=== PATIENT | female | born 1945 | race Caucasian/White ===

== ENCOUNTER 2016-09-23 01:21 | Inpatient (IN) | payer OTHER ==
[2016-09-23] VITALS (31 sets, daily range): BP systolic 80–149; BP diastolic 44–83; PULSE 74–118; RESP 6–38; TEMP 96.5–100.1; O2SAT 80–100
[~2016-09-23] VITALS: Ht 162.6 cm; Wt 73.9 kg
--- NOTE | 2016-09-23 01:21 | NUR ---
ER Dr. Castrejon at bedside examining patient.
--- NOTE | 2016-09-23 01:21 | NUR ---
Placed in room 1 . Placed on quoter, blood pressure machine and pulse oximeter. To gown for exam. Side rails up. Report given to Mery LEDEZMA.
--- NOTE | 2016-09-23 01:25 | NUR ---
Pt brought in by ALS. Per report, pt collapsed after dinner and c/o SOB. pt has hx COPD and CHF. 4 doses of nitro and breathing tx given during transport. Pt unarousable, cool, and diaphoretic with accessory muscle use. Pt O2 sat 74% upon arrival.
--- NOTE | 2016-09-23 01:32 | NUR ---
Patient not known to be of DNR status. Patient medicated with 20 mg of etomidate for sedation prior to placement of ET tube. Respiratory therapy at bedside prior to placement. Size 4 ET tube placed by Dr Castrejon. Cuff inflated with 10 cc air. Auscultation of breath sounds over bilateral chest wall. ET tube secured with tape. O2 sats 93% pulse ox. PCXR ordered to check tube placement.
[2016-09-23] MEDS ORDERED: NACL 0.9% 1,000 ML IV ONE (01:36)
[2016-09-23] MEDS ORDERED: LORazepam 2 MG/ML VIAL (FOR ER USE) ONE (01:44)
[2016-09-23] MEDS ORDERED: ONDANSETRON HCL 4 MG/2 ML VIAL IVP ONE (01:45)
[2016-09-23] MEDS ORDERED: LORazepam 2 MG/ML VIAL (FOR ER USE) IVP ONE (01:45)
[2016-09-23] MEDS ORDERED: ETOMIDATE 20 MG/ 10 ML VIAL (AMIDATE) IVP ONE ×2 (01:45→09:57)
[2016-09-23] MEDS ORDERED: IPRATROPIUM/ALBUTEROL SULFATE 3 ML AMPUL.NEB INH ONE (01:45)
--- NOTE | 2016-09-23 02:00 | NUR ---
Pt's daughter at bedside and updated on pt condition. All questions answered and concerns met.
[2016-09-23 02:01] LABS: CALCIUM 9.5 mg/dL (8.4-11.0); CREATININE 1.76 mg/dL (0.55-1.30); POTASSIUM 3.3 mmol/L (3.5-5.1)
[2016-09-23 02:03] LABS: HEMATOCRIT 44.7 % (36-48); HEMOGLOBIN 14.4 g/dL (12.0-16.0); MEAN CORPUSCULAR HEMOGLOBIN 30 pg (27-31); MEAN CORPUSCULAR HGB CONC 32 % (32-36); MEAN CORPUSCULAR VOLUME 92 fL (79.0-98.0); PLATELET COUNT (AUTO) 264 K/uL (130-430); RED BLOOD CELL COUNT(AUTO) 4.83 MIL/uL (4.2-6.2); RED CELL DISTRIBUTION WIDTH 13.9 % (9.0-15.0); WHITE BLOOD COUNT (AUTO) 15.4 K/uL (4.8-10.8)
[2016-09-23 02:13] LABS: BILIRUBIN,URINE NEGATIVE (NEGATIVE); BLOOD, URINE NEGATIVE (NEGATIVE); COLOR,URINE YELLOW (YELLOW); GLUCOSE,URINE NEGATIVE (NEGATIVE); KETONES,URINE TRACE (NEGATIVE); LEUKOCYTE ESTERASE ,URINE NEGATIVE (NEGATIVE); NITRITE, URINE NEGATIVE (NEGATIVE); PH,URINE 5.5 (5.0-8.0); PROTEIN URINE 2+ (NEGATIVE); UROBILINOGEN,URINE 0.2 (0.2-1.0)
[2016-09-23 02:19] LABS: BASOPHILS % (MANUAL) 0 % (0-2); EOSINOPHILS % (MANUAL) 2 % (0-7); LYMPHOCYTES % (MANUAL) 45 % (20-46); MONOCYTES % (MANUAL) 4 % (0-11)
[2016-09-23 02:20] LABS: CLARITY/URINE HAZY (CLEAR)
[2016-09-23 02:22] LABS: TOTAL BILIRUBIN 0.3 mg/dL (0.0-1.0); TOTAL PROTEIN, SERUM 6.4 g/dL (6.4-8.3)
[2016-09-23 02:27] LABS: BARBITURATE, URINE NEGATIVE (NEG <=200); BENZODIAZEPINE, URINE POSITIVE (NEG <=150); CANNABINOID, URINE NEGATIVE (NEG <=50); COCAINE, URINE NEGATIVE (NEG <=150); METHAMPHETAMINES SCREEN,URINE NEGATIVE (NEG <=500); OPIATE, URINE NEGATIVE (NEG <=100); PHENCYCLIDINE SCREEN,URINE NEGATIVE (NEG <=25); UR TRICYCLIC ANTIDEPRESSANTS NEGATIVE (NEG <=300); URINE AMPHETAMINE NEGATIVE (NEG <=500); URINE METHADONE NEGATIVE (NEG <=200); URINE OXYCODONE SCREEN NEGATIVE (NEG <=100); URINE PROPOXYPHENE SCREEN NEGATIVE (NEG <=300)
[2016-09-23 02:29] LABS: BACTERIA,URINE FEW /HPF (None Seen); FINE GRANULAR CASTS,URINE 0-10 /LPF (None Seen); HYALINE CASTS, URINE 0-10 /LPF (None Seen); MUCUS,URINE None Seen /LPF (None Seen)
[2016-09-23 02:30] LABS: YEAST,URINE Rare /HPF (None Seen)
[2016-09-23] MEDS ORDERED: FUROSEMIDE 40 MG/4 ML VIAL IVP ONE (02:30)
[2016-09-23] MEDS ORDERED: ASPIRIN 81 MG TAB.CHEW PO ONE (02:30)
[2016-09-23 02:55] LABS: BLOOD GAS BASE EXCESS -5.3 mmol/L (-3.0-3.0); BLOOD GAS PH 7.289 (7.350-7.450)
[2016-09-23 02:56] LABS: ABG TOTAL HEMOGLOBIN 14.4 G/dL (12.0-18.0); BLOOD GAS COHb% 0.3 % (0.5-1.5); BLOOD GAS HHB 8.6 % (0.0-6.0); BLOOD O2Hb% 90.5 % (94.0-97.0)
[2016-09-23] MEDS ORDERED: MORPHINE 2 MG/ML INJ. SYRINGE IVP PRN (03:45)
[2016-09-23] MEDS ORDERED: IPRATROPIUM/ALBUTEROL SULFATE 3 ML AMPUL.NEB INH PRN (03:45)
--- NOTE | 2016-09-23 04:05 | NUR ---
ADMISSION PT ADMITTED FROM ER VIA GURNEY. PT ON VENT AC 16 TV 500 FIO2 100 AND PEEP 5. O2 SAT 100%. SINUS RHYTHM ON REHABILITATION SUPERVISOR. PT CALM, COOPERATIVE, LETHARGIC. BREATHING EVEN AND UNLABORED. CLAMPED NG TUBE NOTED TO LEFT NARES DRESSING INTACT. PERIPHERAL IV 18G TO LEFT AC AND 20G TO RIGHT AC. BOTH SITES HAVE NO SIGNS OF INFECTION OR INFILTRATION. NS RUNNING @ 100CC/HR. PT ON BILATERAL SOFT WRIST RESTRAINTS. GOOD SKIN AND CIRCULATION NOTED. FAMILY AT BEDSIDE. BED AT LOWEST POSITION. CONTINUE TO MONITOR
--- NOTE | 2016-09-23 04:05 | NUR ---
Pt transferred to ICU via gurney accompanied by RN and RT. Pt placed on heart monitor for transports. No s/s distress or IV infiltration. Placed in ICU bed 1. Report given to My. All care endorsed.
[2016-09-23] MEDS ORDERED: *HEPARIN PER PHARMACY XX ONE (04:15)
[2016-09-23] MEDS ORDERED: ONDANSETRON HCL 4 MG/2 ML VIAL IVP PRN (04:30)
[2016-09-23] MEDS ORDERED: cefTRIAXone 1 GM IVPB PREMIX 50 ML IV SCH (06:00)
[2016-09-23] MEDS ORDERED: ARIP2TAB9 PO (06:03)
[2016-09-23] MEDS ORDERED: GLIM1TAB PO (06:03)
[2016-09-23] MEDS ORDERED: COR12.5 PO (06:03)
[2016-09-23] MEDS ORDERED: BACL10TA PO (06:03)
[2016-09-23] MEDS ORDERED: VALS80TA2 PO (06:03)
[2016-09-23] MEDS ORDERED: SERT50TA PO (06:03)
[2016-09-23] MEDS ORDERED: VENL75TA4 PO (06:03)
[2016-09-23] MEDS ORDERED: NOR10 PO (06:03)
[2016-09-23] MEDS ORDERED: ERGO8000 (06:03)
[2016-09-23] MEDS ORDERED: ATOR40TA68 PO (06:03)
[2016-09-23] MEDS ORDERED: HEPARIN SODIUM,PORCINE 3000 UNITS/0.6 ML BOLUS IVP PRN (06:15)
[2016-09-23] MEDS ORDERED: HEPARIN SODIUM,PORCINE 5000 UNITS/ML VIAL IV ONE (06:15)
[2016-09-23] MEDS ORDERED: HEPARIN SODIUM,PORCINE 2000 UNITS/0.4 ML BOLUS IVP PRN (06:15)
[2016-09-23] MEDS ORDERED: cefTRIAXone 1 GM IVPB PREMIX 50 ML IV ONE (06:19)
[2016-09-23 06:53] LABS: BASOPHILS % (AUTO) 0.3 % (0.0-2.0); EOSINOPHILS % (AUTO) 0.1 % (0.0-4.0); HEMATOCRIT 41.6 % (36-48); HEMOGLOBIN 14.1 g/dL (12.0-16.0); LYMPHOCYTES # (AUTO) 0.9 K/uL (1.0-5.5); LYMPHOCYTES % (AUTO) 5.9 % (20.5-51.5); MEAN CORPUSCULAR HEMOGLOBIN 31 pg (27-31); MEAN CORPUSCULAR HGB CONC 34 % (32-36); MEAN CORPUSCULAR VOLUME 92 fL (79.0-98.0); MONOCYTES # (AUTO) 0.2 K/uL (0.0-1.0); MONOCYTES % (AUTO) 1.5 % (1.7-9.3); NEUTROPHILS # (AUTO) 13.8 K/uL (1.8-7.7); NEUTROPHILS % (AUTO) 92.2 % (40.0-70.0); PLATELET COUNT (AUTO) 263 K/uL (130-430); RED BLOOD CELL COUNT(AUTO) 4.55 MIL/uL (4.2-6.2); RED CELL DISTRIBUTION WIDTH 13.6 % (9.0-15.0); WHITE BLOOD COUNT (AUTO) 14.9 K/uL (4.8-10.8)
--- NOTE | 2016-09-23 07:00 | NUR ---
DR NARAYANAN @ PT'S BEDSIDE
--- NOTE | 2016-09-23 07:05 | NUR ---
DR. LADY NARAYANAN EXAMINED. ASKED REGARDING FLUID BOLUS FOR SEPSIS PROTOCOL. ORDERED BOLUS OF 500 ML NS. SERUM SODIUM IS ELEVATED, CXR SHOWS CHF.
[2016-09-23 07:09] LABS: CREATININE 1.39 mg/dL (0.55-1.30); POTASSIUM 3.3 mmol/L (3.5-5.1)
[2016-09-23] MEDS ORDERED: NS 500 ML IV ONE (07:15)
[2016-09-23] MEDS: IPRATROPIUM/ALBUTEROL SULFATE 3 ML AMPUL.NEB INH SCH ×3 (07:17→19:49)
--- NOTE | 2016-09-23 07:19 | NUR ---
consult for dr. cowan called spoke to deisy dialed [phone]
[2016-09-23 07:27] LABS: ALBUMIN 3.3 g/dL (3.4-4.8); TOTAL BILIRUBIN 0.5 mg/dL (0.0-1.0); TOTAL PROTEIN, SERUM 6.4 g/dL (6.4-8.3)
--- NOTE | 2016-09-23 07:30 | NUR ---
RT NOTE VENT CHANGE MADE AT THIS TIME, FIO2 DECREASED TO 40% AND COMMUNICATED TO DR NARAYANAN AT BEDSIDE AFTER ABG RESULT, RN INFORMED, NO RESP DISTRESS NTD
[2016-09-23 07:37] LABS: ABG TOTAL HEMOGLOBIN 13.9 G/dL (12.0-18.0); BLOOD GAS BASE EXCESS -0.3 mmol/L (-3.0-3.0); BLOOD GAS COHb% 0.3 % (0.5-1.5); BLOOD GAS HHB 0.7 % (0.0-6.0); BLOOD GAS PH 7.419 (7.350-7.450); BLOOD O2Hb% 98.3 % (94.0-97.0)
--- NOTE | 2016-09-23 07:50 | NUR ---
AM ASSESSMENT. PT INTUBATED, ORAL HYGIENE GIVEN, BITE BLOCK INTACT, EYES CLOSED, PUPILS SLUGGISH TO REACT, IVF INTO LEFT A/C, SALINE BOLUS INFUSING INTO RIGHT A/C, IV SITES CLEAR AND PATENT. ABDOMEN SOFT ON PALPATION, NGT IN LEFT NARIS BUT CLAMPED. LI CATHETER DRAINING WELL.
[2016-09-23] MEDS: 0.45% NACL 1,000 ML IV SCH ×2 (08:05→23:54)
[2016-09-23] MEDS: HEPARIN 25,000 UNITS in 250 ML PREMIX IV PRN ×2 (08:46→23:20)
--- NOTE | 2016-09-23 08:46 | NUR ---
IV DRIPS. HEPARIN DRIP INITIATED AT 1000 UNITS PER HR, TO CHECK APTT AT 1500 TODAY.
--- NOTE | 2016-09-23 08:59 | NUR ---
Nutrition Update Jim Scale 15 noted. Pt admitted for respiratory failure. Diet: NPO BMI: 28 kg/m2 RD to follow per nutrition care standards.
[2016-09-23] MEDS ORDERED: AZITHROMYCIN 500 MG in NS 250 ML IV SCH (09:00)
[2016-09-23] MEDS: FUROSEMIDE 40 MG/4 ML VIAL IVP SCH (09:00)
[2016-09-23] MEDS: ASPIRIN 325 MG TABLET (ECOTRIN) PO SCH (09:00)
--- NOTE | 2016-09-23 09:05 | NUR ---
CONSULT. PT SEEN BY DR EPPERSON. DAUGHTER AND PT'S SISTER INSIDE ROOM. PLAN OF CARE DISCUSSED.
[2016-09-23] MEDS: PANTOPRAZOLE SODIUM 40 MG/VIAL (PROTONIX) IVP SCH (09:08)
[2016-09-23] MEDS: LORazepam 2 MG/ML VIAL IVP PRN ×3 (09:19→22:09)
[2016-09-23] MEDS ORDERED: POTASSIUM CHLORIDE 20 MEQ/PKT PACKET PO ONE (09:30)
[2016-09-23] MEDS ORDERED: CARVEDILOL 3.125 MG TABLET (COREG) PO ONE (09:45)
[2016-09-23 10:25] LABS: THYROID STIMULATING HORMONE 1.97 uIu/mL (0.34-4.82)
--- NOTE | 2016-09-23 10:27 | NUR ---
Social Service Note: TIBCO DEVELOPER met with pt's dtr, Denys and son, Stoney in ICU waiting room. TIBCO DEVELOPER provided emotional support. TIBCO DEVELOPER has completed DC plan assessment. Pt lives at home with her daughter. Pt has a cane; pt has no other DME at home. Pt is currently intubated and on the ventilator. Pt collapsed at home last night and was brought to the hospital. Pt has history of COPD and CHF. Pt does not have oxygen at home. TIBCO DEVELOPER will remain available for support and will follow up as needed.
--- NOTE | 2016-09-23 10:33 | NUR ---
MEDS. NGT RE-ADJUSTED, CAREFULLY PULLED TUBE OUT FEW CENTIMETERS , AUSCULTATED ABDOMEN, FLUSHED NGT WITH AIR, GURGLING SOUND IN THE STOMACH HEARD. HEAD OF BED REMAIN ELEVATED. PT ONLY MOVED HER HEAD SLIGHTLY DURING THE PROCEDURE.
[2016-09-23] MEDS: PIPERACILLIN/TAZO 3.375/DEX-IS 50 ML IV SCH ×3 (11:13→23:55)
--- NOTE | 2016-09-23 15:50 | NUR ---
IV DRIPS. ADJUSTMENT MADE TO HEPARIN DRIP, 1100 UNITS PER HR, NEXT PTT DRAW AT 2200.
--- NOTE | 2016-09-23 16:07 | NUR ---
TEMP. BED BATH PROVIDED, PERINEAL HYGIENE, TEMP 100.1, MEDICATED WITH TYLENOL EXTRA STRENGTH VIA NGT.
[2016-09-23] MEDS: ACETAMINOPHEN 500 MG TABLET NG PRN (16:17)
--- NOTE | 2016-09-23 19:30 | NUR ---
Initial note Received sleeping, intubated, non responsive to verbal stimuli. Tolerating vent settings TV 400P, AC 16, Fi2 40%, PEEP 5. Heparin infusing to left ac @ 1100 units/hr, 1/2 NS infusign to right ac @ 75 cc/hr. NG tube left nares intact and clamped. Snider cathether intacct draining yellow urine. 2 point soft wrist restraints in place. Fall precautions in place. 3 siderails up.
[2016-09-23] MEDS: CARVEDILOL 3.125 MG TABLET (COREG) PO SCH (20:58)
--- NOTE | 2016-09-23 22:15 | NUR ---
Agitation Attempting to sit up in bed pulling on restraints. Unable to comprehend instructions to stay in bed. Ativan IV given. FAll precautions in place.
[2016-09-23] MEDS ORDERED: FLU VACC QS 2016-17(36MOS+)/PF 0.5 ML/SYR SYRINGE I.M. PRN (22:30)
[2016-09-24] VITALS (34 sets, daily range): BP systolic 98–166; BP diastolic 41–129; PULSE 67–116; RESP 12–30; TEMP 98.2–98.9; O2SAT 94–100
[2016-09-24] MEDS: IPRATROPIUM/ALBUTEROL SULFATE 3 ML AMPUL.NEB INH SCH ×4 (00:52→19:35)
[2016-09-24] MEDS: LORazepam 2 MG/ML VIAL IVP PRN ×3 (03:59→19:41)
--- NOTE | 2016-09-24 04:04 | NUR ---
Agitation BP 181/104, pulling on wrist restraints. Ativan IV given.
[2016-09-24] MEDS: PIPERACILLIN/TAZO 3.375/DEX-IS 50 ML IV SCH ×4 (06:11→23:47)
--- NOTE | 2016-09-24 07:15 | NUR ---
Closing note Resting quietly, no apparent distress. Remains non-responsive to verbal stimuli. Tolerating current vent setting ac16, tv 400, fio2 40%, peep 5. Heparin drip@ 100 un/hr infusing to left ac IV access. Snider catheter intact & patent. On 2 point bilateral wrist restraints. Fall precautions in place. Will give report to oncoming shift RN.
[2016-09-24 07:28] LABS: BASOPHILS % (AUTO) 0.3 % (0.0-2.0); EOSINOPHILS % (AUTO) 0.2 % (0.0-4.0); HEMATOCRIT 33.2 % (36-48); HEMOGLOBIN 11.1 g/dL (12.0-16.0); MEAN CORPUSCULAR HEMOGLOBIN 30 pg (27-31); MEAN CORPUSCULAR HGB CONC 34 % (32-36); MEAN CORPUSCULAR VOLUME 90 fL (79.0-98.0); MONOCYTES # (AUTO) 0.8 K/uL (0.0-1.0); MONOCYTES % (AUTO) 5.5 % (1.7-9.3); NEUTROPHILS # (AUTO) 11.8 K/uL (1.8-7.7); PLATELET COUNT (AUTO) 174 K/uL (130-430); RED BLOOD CELL COUNT(AUTO) 3.68 MIL/uL (4.2-6.2); RED CELL DISTRIBUTION WIDTH 13.4 % (9.0-15.0); WHITE BLOOD COUNT (AUTO) 14.6 K/uL (4.8-10.8)
--- NOTE | 2016-09-24 07:30 | NUR ---
BEGINNING OF SHIFT ASSESSMENT: Received patient asleep, resting in bed with eyes closed.Patient aware and alert x 2, name and situation.Patient able to follow commands, reacts to both verbal and tactile stimuli.Patient tolerating current vent settings ETT to vent 7.5 to 22cm lipline, AC 16, TV 400, FIO2 40% and PEEP 5.Lung sounds clear through out.Both peripheral IV sites to RT and LT AC flushable, patent, dressing dry and intact with no signs of redness, infection.PIV to LT AC #18 infusing Heparin drip at rate of 10ml/hr and PIV to RT AC #20 infusing 1/2 NS at rate of 100 ml/hr.Bed locked,in lowest position, call light within easy reach, upper side rails x 2 up, HOB elevated,safety education provided.Will continue to monitor.
[2016-09-24 07:57] LABS: CALCIUM 8.7 mg/dL (8.4-11.0); POTASSIUM 3.8 mmol/L (3.5-5.1)
[2016-09-24 07:58] LABS: ALBUMIN 2.5 g/dL (3.4-4.8); CREATININE 1.63 mg/dL (0.55-1.30); TOTAL BILIRUBIN 0.8 mg/dL (0.0-1.0); TOTAL PROTEIN, SERUM 5.5 g/dL (6.4-8.3)
[2016-09-24] MEDS: ASPIRIN 325 MG TABLET (ECOTRIN) PO SCH (08:12)
[2016-09-24] MEDS: CARVEDILOL 3.125 MG TABLET (COREG) PO SCH ×2 (08:12→21:17)
[2016-09-24] MEDS: FUROSEMIDE 40 MG/4 ML VIAL IVP SCH (08:13)
[2016-09-24] MEDS: PANTOPRAZOLE SODIUM 40 MG/VIAL (PROTONIX) IVP SCH (08:13)
[2016-09-24 08:20] LABS: ABG TOTAL HEMOGLOBIN 12.5 G/dL (12.0-18.0); BLOOD GAS BASE EXCESS 0.2 mmol/L (-3.0-3.0); BLOOD GAS PH 7.442 (7.350-7.450)
[2016-09-24 08:21] LABS: BLOOD GAS COHb% 0.3 % (0.5-1.5); BLOOD GAS HHB 1.3 % (0.0-6.0); BLOOD O2Hb% 97.8 % (94.0-97.0)
--- NOTE | 2016-09-24 08:35 | NUR ---
MD COMMUNICATION: Paged and communicated with Dr. Gtz regarding ABG lab values.Received vent titration orders.RT paged regarding orders.Will continue to monitor.
--- NOTE | 2016-09-24 09:00 | NUR ---
COMMUNICATION: Dr. Roberts ordered for NG tube pulled back 5 cm and repeat chest x-ray.Will continue to monitor.
--- NOTE | 2016-09-24 09:15 | NUR ---
NG TUBE: Orders carried out.Verified positive placement via auscultation.ct tech paged for chest xray as ordered.
[2016-09-24] MEDS: HEPARIN 25,000 UNITS in 250 ML PREMIX IV PRN (09:28)
--- NOTE | 2016-09-24 09:33 | NUR ---
RT NOTES Vent settings to SIMV 8, PS 10, 30% per Dr Gtz's order. No adverse reactions noted. Family at bedside. Pt. was re-assessed after 5 minutes, pt. cont. to tolerate SIMV well. H.R 88 R.R 21. Will cont. to monitor pt.
--- NOTE | 2016-09-24 10:00 | NUR ---
PT UPDATE: Patient tolerating current vent settings.Pt turned, repositioned and suctioned.Family remains at bedside.Pt continues to be monitored.
[2016-09-24] MEDS: ACETAMINOPHEN 500 MG TABLET NG PRN ×2 (10:48→17:32)
[2016-09-24] MEDS: 0.45% NACL 1,000 ML IV SCH ×2 (11:16→22:17)
--- NOTE | 2016-09-24 12:00 | NUR ---
MD ROUNDING: Dr. Carmona at bedside.MD updated on patient condition.Will continue to monitor.
--- NOTE | 2016-09-24 13:00 | NUR ---
MD ROUNDING: Dr. Dawson at bedside.MD updated on pt condition.Will continue to monitor.
[2016-09-24] MEDS: MORPHINE 2 MG/ML INJ. SYRINGE IVP PRN (15:46)
--- NOTE | 2016-09-24 17:00 | NUR ---
PT Temp: Pt temp 99.4.Tylenol given as ordered.Will reassess within 1 hour.
--- NOTE | 2016-09-24 18:00 | NUR ---
Pt TEMP: Pt temp decreased to 98.4.Tylenol effective.Pt continues to be monitored.
--- NOTE | 2016-09-24 19:30 | NUR ---
Received report using SBAR approached, patient restless and orally intubated to ventilator with settings as follows SIMV 8, FiO2 30%, PeeP +5, PS 10, and TV of 400. Monitor ST with B/P stable. Supportive measures given.
[2016-09-25] VITALS (32 sets, daily range): BP systolic 90–175; BP diastolic 45–104; PULSE 74–111; RESP 12–31; TEMP 98–99.1; O2SAT 95–100
--- NOTE | 2016-09-25 | NUR ---
Condition unchanged. No distress noted.
[2016-09-25] MEDS: IPRATROPIUM/ALBUTEROL SULFATE 3 ML AMPUL.NEB INH SCH ×4 (01:09→19:47)
[2016-09-25] MEDS: MORPHINE 2 MG/ML INJ. SYRINGE IVP PRN ×2 (01:33→08:04)
[2016-09-25] MEDS ORDERED: FLU VACC QS 2016-17(36MOS+)/PF 0.5 ML/SYR SYRINGE I.M. PRN (02:45)
--- NOTE | 2016-09-25 05:00 | NUR ---
Condition unchanged. AM care given.
[2016-09-25] MEDS: PIPERACILLIN/TAZO 3.375/DEX-IS 50 ML IV SCH ×4 (06:00→23:17)
[2016-09-25 06:41] LABS: BASOPHILS % (AUTO) 0.4 % (0.0-2.0); EOSINOPHILS # (AUTO) 0.1 K/uL (0.0-0.4); EOSINOPHILS % (AUTO) 1.2 % (0.0-4.0); HEMOGLOBIN 11.2 g/dL (12.0-16.0); LYMPHOCYTES # (AUTO) 1.5 K/uL (1.0-5.5); MEAN CORPUSCULAR HEMOGLOBIN 31 pg (27-31); MEAN CORPUSCULAR HGB CONC 34 % (32-36); MEAN CORPUSCULAR VOLUME 90 fL (79.0-98.0); MONOCYTES # (AUTO) 0.7 K/uL (0.0-1.0); MONOCYTES % (AUTO) 6.3 % (1.7-9.3); NEUTROPHILS # (AUTO) 9.2 K/uL (1.8-7.7); NEUTROPHILS % (AUTO) 79.1 % (40.0-70.0); PLATELET COUNT (AUTO) 189 K/uL (130-430); RED BLOOD CELL COUNT(AUTO) 3.66 MIL/uL (4.2-6.2); RED CELL DISTRIBUTION WIDTH 13.3 % (9.0-15.0); WHITE BLOOD COUNT (AUTO) 11.5 K/uL (4.8-10.8)
[2016-09-25 06:51] LABS: CALCIUM 8.7 mg/dL (8.4-11.0); CREATININE 1.35 mg/dL (0.55-1.30)
--- NOTE | 2016-09-25 07:30 | NUR ---
BEGINNING OF SHIFT ASSESSMENT: Received patient resting in bed, awake and alert x 2, name and situation,responds to verbal and tactile stimuli, appears restless,facial grimacing noted.Lung sounds clear through out,tolerating current vent settings; SIMV 8, TV 400, FIO2 30%, PS 10 PEEP 5.She is still receiving 1/2 NS at rate of 75 mls/hr and heparin drip at the rate of 1100 units/hr to LT AC PIV # 18. All ports patent, flushable with blood return, dressing dry and intact,no signs of redness or infection noted.Bed locked,in lowest position,call light within easy reach,HOB elevated,heels on floated on pillow support.Will continue to monitor.
--- NOTE | 2016-09-25 07:48 | NUR ---
Heparin Increase: Heparin drip rate increased 100 units per protocol orders.Repeat aPTT ordered.Will continue to monitor.
[2016-09-25 08:16] LABS: ABG TOTAL HEMOGLOBIN 12.6 G/dL (12.0-18.0); BLOOD GAS BASE EXCESS -0.1 mmol/L (-3.0-3.0); BLOOD GAS COHb% 0.3 % (0.5-1.5); BLOOD GAS PH 7.471 (7.350-7.450); BLOOD O2Hb% 96.7 % (94.0-97.0)
[2016-09-25 08:17] LABS: BLOOD GAS HHB 2.4 % (0.0-6.0)
[2016-09-25] MEDS ORDERED: POTASSIUM CHLORIDE 40 MEQ, LIDOCAINE JECT 2% PF 100 MG 50 MG in NS 250 ML IV ONE (08:45)
--- NOTE | 2016-09-25 09:00 | NUR ---
MD rounding: Dr. Dowell at bedside.MD updated on pt condition.Patient continues to be monitored.
[2016-09-25] MEDS: PANTOPRAZOLE SODIUM 40 MG/VIAL (PROTONIX) IVP SCH (09:37)
[2016-09-25] MEDS: FUROSEMIDE 40 MG/4 ML VIAL IVP SCH (09:38)
[2016-09-25] MEDS: POTASSIUM CHLORIDE 20 MEQ/PKT PACKET PO SCH ×2 (09:38→21:04)
[2016-09-25] MEDS: ASPIRIN 325 MG TABLET (ECOTRIN) PO SCH (09:39)
[2016-09-25] MEDS: CARVEDILOL 3.125 MG TABLET (COREG) PO SCH ×2 (09:40→21:05)
[2016-09-25] MEDS ORDERED: POTASSIUM CHLORIDE 20 MEQ/PKT PACKET ONE (09:41)
[2016-09-25] MEDS ORDERED: CARVEDILOL 6.25 MG TABLET (COREG) ONE (09:48)
[2016-09-25] MEDS: 0.45% NACL 1,000 ML IV SCH ×2 (11:39→23:17)
[2016-09-25] MEDS: HEPARIN 25,000 UNITS in 250 ML PREMIX IV PRN ×2 (11:41→21:35)
--- NOTE | 2016-09-25 12:50 | NUR ---
MD COMMUNICATION: Received new vent setting orders from DR. Gtz.RT paged to carry out orders.Patient continues to be monitored.
--- NOTE | 2016-09-25 13:02 | NUR ---
RT NOTES Vent settings to CPAP [address] Gtz's order. No immediate adverse reactions noted. No SOB noted. Pt. was educated on deep breathing, appears to nod head. @1335 pt. cont. to tolerate CPAP well H.R. 82 R.R. 18 SPO2 97%. No respiratory distress noted. Will draw ABG 1 Hr post vent change, will monitor pt.
--- NOTE | 2016-09-25 13:05 | NUR ---
VENT SETTING CHANGE: RT at bedside carrying vent change orders.ABG labs ordered 1 hour from vent setting changes.Provided pt with deep breathing education.Will continue to monitor.
[2016-09-25 14:17] LABS: ABG TOTAL HEMOGLOBIN 12.8 G/dL (12.0-18.0); BLOOD GAS PH 7.473 (7.350-7.450)
[2016-09-25 14:18] LABS: BLOOD GAS COHb% 0.3 % (0.5-1.5); BLOOD GAS HHB 1.7 % (0.0-6.0); BLOOD O2Hb% 97.4 % (94.0-97.0)
--- NOTE | 2016-09-25 15:00 | NUR ---
Heparin drip: Heparin drip rate increased from 1100 units/hr to 1200 units/hr per protocol orders.Repeat aPTT draw ordered 09/25/162099.Bed locked, in lowest position,call light within easy reach, HOB elevated, upper side rails x 2 up,heel floated using pillow support.Will continue to monitor.
--- NOTE | 2016-09-25 15:25 | NUR ---
RT NOTES Per Dr Gtz's order, placed pt on 30% cool aerosol/tbar. No immediate adverse reactions noted. Pt. was educated on deep breathing. Sxn via ETT and orally. Vitals post tbar trials: H.R 99 R.R 25 SPO2 98% Pt. was observed for 5 minutes, no respiratory distress noted. Will cont. to monitor pt.
--- NOTE | 2016-09-25 16:10 | NUR ---
RT NOTES Current vitals: H.R 104 R.R 25 SPO2 99% Per Dr Gtz's outstanding, pt. was extubated and placed on 2L oxymizer after pt. tolerated t-bar for 30 minutes. Sxn orally and via ETT before extubation, and was educated again on deep breathing. Pt. is alert and appears to comprehend instructions. Pt. was observed for 3 minutes before letting family in to see pt. No signs of distress. H.R 99 R.R 26 SPO2 98%. Will monitor pt.
--- NOTE | 2016-09-25 17:00 | NUR ---
Pt update: Patient breathing unlabored, alert x 2, name and event.Pt sitting upright in bed.Pt turned and repositioned.Bed locked, in lowest position,HOB elevated,upper side rails x 2 up,call light within easy reach.Will continue to monitor.
[2016-09-25] MEDS: ACETAMINOPHEN 500 MG TABLET NG PRN (17:12)
[2016-09-25] MEDS ORDERED: COMMUNICATION ORDER XX ONE (17:45)
--- NOTE | 2016-09-25 19:30 | NUR ---
Initial Notes Received patient resting in bed with eyes closed, easily aroused to name. Patient drowsy, oriented to name and place. Patient on bilateral soft wrist restraints, tolerating well. Patient denies any acute distress or pain at this time. Breathing even and unlabored on 2L oxymizer. IV sites patent/clean/dry, heparin drip infusing @ 1200units/hr per pharmacy dosing. Snider draining yellow urine to gravity. Educated patient on use of call light for assistance and fall precautions, patient verbalized understanding. Fall precautions in use, bed lowest position, side rails up x3, bed alarm in use. Call light in hand, will continue to monitor.
--- NOTE | 2016-09-25 19:30 | NUR ---
CLOSING NOTE: Report and plan of care given via SBAR method to DARIEN Bowie. Patient resting in bed, eyes closed, bed in lowest position, locked, upper side rails x 2 up,HOB elevated,call light within easy reach.Endorsed care to DARIEN Bowie.
[2016-09-25 19:32] LABS: ABG TOTAL HEMOGLOBIN 13.3 G/dL (12.0-18.0); BLOOD GAS BASE EXCESS 2.6 mmol/L (-3.0-3.0); BLOOD GAS COHb% 0.2 % (0.5-1.5); BLOOD GAS HHB 1.8 % (0.0-6.0); BLOOD O2Hb% 97.4 % (94.0-97.0)
--- NOTE | 2016-09-25 21:30 | NUR ---
Heparin Drip rate adjusted to 1300unit/hr. Heparin drip rate adjusted to 1300unit/hr, per pharmacy protocol for latest PTT of 45.5, next PTT ordered for 6hours post adjustment at 0330. No S/S active bleeding noted. Will continue to monitor.
[2016-09-26] VITALS (14 sets, daily range): BP systolic 92–159; BP diastolic 42–86; PULSE 67–105; RESP 15–26; TEMP 98.1–99.5; O2SAT 93–99
[2016-09-26] MEDS: IPRATROPIUM/ALBUTEROL SULFATE 3 ML AMPUL.NEB INH SCH ×4 (01:24→20:28)
--- NOTE | 2016-09-26 02:46 | NUR ---
Hygiene Care and CHG bath Oral care, pericare, and CHG bath given. Patient tolerated well. Will continue to monitor.
--- NOTE | 2016-09-26 04:20 | NUR ---
Heparin Drip Latest PTT resulted 66.7, no change made to heparin drip rate per pharmacy protocol. Next PTT ordered for tomorrow per protocol. Patient resting comfortably in bed. No acute distress noted. Breathing even and unlabored. No S/S active bleeding noted. Will continue to monitor.
[2016-09-26] MEDS: PIPERACILLIN/TAZO 3.375/DEX-IS 50 ML IV SCH ×4 (05:02→23:31)
[2016-09-26] MEDS: HEPARIN 25,000 UNITS in 250 ML PREMIX IV PRN (05:04)
--- NOTE | 2016-09-26 06:40 | NUR ---
Closing Notes Patient resting in bed with eyes closed, easily aroused. Patient denies any acute distress or pain at this time. Breathing even and unlabored on 2L via oximizer. IV site patent/clean/dry, no S/S infection/infiltration noted. Heparin drip infusing @ 1300units/hr, no S/S bleeding noted/reported. Snider draining yellow urine to gravity. Patient remains on bilateral soft wrist restraints due to attempting to remove O2 source and getting out of bed. Needs addressed throughout shift. Call light in hand, fall precautions in place. Will continue to monitor for changes and safety, and endorse all patient care/needs to oncoming nurse.
[2016-09-26 06:41] LABS: ALBUMIN 2.6 g/dL (3.4-4.8); CALCIUM 9.2 mg/dL (8.4-11.0); CREATININE 1.3 mg/dL (0.55-1.30); PHOSPHORUS 3.4 mg/dL (2.7-4.5); POTASSIUM 3.2 mmol/L (3.5-5.1); TOTAL BILIRUBIN 0.9 mg/dL (0.0-1.0); TOTAL PROTEIN, SERUM 6.3 g/dL (6.4-8.3)
[2016-09-26 07:07] LABS: BASOPHILS % (AUTO) 0.5 % (0.0-2.0); EOSINOPHILS # (AUTO) 0.1 K/uL (0.0-0.4); EOSINOPHILS % (AUTO) 1.1 % (0.0-4.0); HEMOGLOBIN 12.3 g/dL (12.0-16.0); LYMPHOCYTES # (AUTO) 1.4 K/uL (1.0-5.5); LYMPHOCYTES % (AUTO) 15.5 % (20.5-51.5); MEAN CORPUSCULAR HEMOGLOBIN 30 pg (27-31); MEAN CORPUSCULAR HGB CONC 34 % (32-36); MEAN CORPUSCULAR VOLUME 87 fL (79.0-98.0); MONOCYTES # (AUTO) 0.8 K/uL (0.0-1.0); MONOCYTES % (AUTO) 8.6 % (1.7-9.3); NEUTROPHILS # (AUTO) 6.8 K/uL (1.8-7.7); NEUTROPHILS % (AUTO) 74.3 % (40.0-70.0); PLATELET COUNT (AUTO) 227 K/uL (130-430); RED BLOOD CELL COUNT(AUTO) 4.13 MIL/uL (4.2-6.2); RED CELL DISTRIBUTION WIDTH 12.9 % (9.0-15.0); WHITE BLOOD COUNT (AUTO) 9.1 K/uL (4.8-10.8)
--- NOTE | 2016-09-26 07:10 | NUR ---
[place] of Care Pt in bed. No SOB on 2L o2 via oxymizer. Bilateral soft wrist restraints on with no sign of injury. Observed pt yelling and anxious. Oriented x2. Safe environment provided. Assisted with needs. Kept comfortable. Call light in reach. Will continue to monitor.
--- NOTE | 2016-09-26 07:15 | NUR ---
[place] of care Pt in bed. No SOB. Nitroglycerin drip 20mcg and Propofol 40mcg/kg/min ongoing. Sherwin 4. Fibersource 20 ongoing via NGT. Bilateral wrist soft restraints on. No sign of injury. In no distress. No sign of pain. Will continue to monitor. Addendum: 09/26/16 at 1057 by Cari Byers RN Entered in error. For another pt.
[2016-09-26] MEDS: PANTOPRAZOLE SODIUM 40 MG/VIAL (PROTONIX) IVP SCH (08:15)
[2016-09-26] MEDS: LORazepam 2 MG/ML VIAL IVP PRN ×2 (08:15→18:14)
[2016-09-26] MEDS: FUROSEMIDE 40 MG/4 ML VIAL IVP SCH (08:16)
[2016-09-26] MEDS: ASPIRIN 325 MG TABLET (ECOTRIN) PO SCH (08:16)
[2016-09-26] MEDS: POTASSIUM CHLORIDE 20 MEQ/PKT PACKET PO SCH ×2 (08:17→21:23)
[2016-09-26] MEDS: CARVEDILOL 3.125 MG TABLET (COREG) PO SCH ×2 (08:18→21:24)
[2016-09-26] MEDS ORDERED: POTASSIUM CHLORIDE 40 MEQ, LIDOCAINE JECT 2% PF 100 MG 50 MG in NS 250 ML IV ONE (09:00)
--- NOTE | 2016-09-26 09:20 | NUR ---
Called Dr. Trevino at [phone] with a consult, spoke with Eva from doctors office
[2016-09-26] MEDS: ENOXAPARIN SODIUM 40 MG/0.4 ML SYRINGE SUBCUT SCH (13:10)
[2016-09-26] MEDS: PANTOPRAZOLE SODIUM 40 MG TAB PO SCH (13:10)
--- NOTE | 2016-09-26 13:30 | NUR ---
Report given to DARIEN Kaur and endorsed all care. In no acute distress.
--- NOTE | 2016-09-26 14:05 | NUR ---
Transferred pt to telemetry room 123A. In no acute distress.
--- NOTE | 2016-09-26 14:30 | NUR ---
Received patient from ICU with family at bedside. Daughter explains that patient is anxious, and needs some med for anxiety. Patient observed with upper extremity tremors bilat. Vincent Perez RN
--- NOTE | 2016-09-26 17:00 | NUR ---
Patient with temp > 99.5, and given tylenol 500mg po per do. Vincent Perez RN
--- NOTE | 2016-09-26 20:00 | NUR ---
Initial PM Note Pt was received lying in bed lethargic, but easily arousable. Speech is garbled. No resp distress noted. O2 sat 98% on oxygen at 2l/min via Oxymizer. Saline locks are patent in RAC and LAC. Snider Cath to gravity is draining clear yellowish urine. Fall and safety precautions are in place.
--- NOTE | 2016-09-26 22:00 | NUR ---
Rounds Pt is resting comfortably in bed.
--- NOTE | 2016-09-26 22:30 | NUR ---
Dr. Gtz Pt was seen by Dr. Gtz. No new orders written.
[2016-09-27 00:22] VITALS: BP 102/52; PULSE 79; RESP 17; TEMP 97.6; O2SAT 97
--- NOTE | 2016-09-27 00:30 | NUR ---
Rounds Pt is resting comfortably in bed.
--- NOTE | 2016-09-27 02:30 | NUR ---
Rounds Pt is sleeping without any resp distress noted.
[2016-09-27 04:27] VITALS: BP 108/63; PULSE 86; RESP 18; TEMP 98.6; O2SAT 98
--- NOTE | 2016-09-27 04:30 | NUR ---
Rounds Pt is resting comfortably in bed. Fall precautions are in place.
[2016-09-27] MEDS: IPRATROPIUM/ALBUTEROL SULFATE 3 ML AMPUL.NEB INH SCH ×4 (04:59→20:16)
[2016-09-27] MEDS: PIPERACILLIN/TAZO 3.375/DEX-IS 50 ML IV SCH ×4 (05:27→23:52)
[2016-09-27 05:52] LABS: BASOPHILS % (AUTO) 0.4 % (0.0-2.0); EOSINOPHILS # (AUTO) 0.1 K/uL (0.0-0.4); EOSINOPHILS % (AUTO) 0.9 % (0.0-4.0); HEMATOCRIT 37.9 % (36-48); HEMOGLOBIN 12.8 g/dL (12.0-16.0); LYMPHOCYTES # (AUTO) 1.3 K/uL (1.0-5.5); LYMPHOCYTES % (AUTO) 15.8 % (20.5-51.5); MEAN CORPUSCULAR HEMOGLOBIN 30 pg (27-31); MEAN CORPUSCULAR HGB CONC 34 % (32-36); MEAN CORPUSCULAR VOLUME 89 fL (79.0-98.0); MONOCYTES # (AUTO) 0.6 K/uL (0.0-1.0); MONOCYTES % (AUTO) 7.7 % (1.7-9.3); NEUTROPHILS % (AUTO) 75.2 % (40.0-70.0); PLATELET COUNT (AUTO) 253 K/uL (130-430); RED BLOOD CELL COUNT(AUTO) 4.25 MIL/uL (4.2-6.2); RED CELL DISTRIBUTION WIDTH 12.9 % (9.0-15.0)
[2016-09-27 06:06] LABS: ALBUMIN 2.7 g/dL (3.4-4.8); CALCIUM 9.3 mg/dL (8.4-11.0); CREATININE 1.44 mg/dL (0.55-1.30); POTASSIUM 3.9 mmol/L (3.5-5.1); TOTAL BILIRUBIN 0.7 mg/dL (0.0-1.0); TOTAL PROTEIN, SERUM 6.7 g/dL (6.4-8.3)
--- NOTE | 2016-09-27 06:26 | NUR ---
Closing Note Pt is awake and resting comfortably in bed. No distress noted at this time. All pt's needs were attended to. No fall or injury noted this shift. Will endorse to day shift nurse.
[2016-09-27 08:00] VITALS: BP 117/58; PULSE 107; RESP 20; TEMP 97.8; O2SAT 94
[2016-09-27] MEDS: FUROSEMIDE 40 MG/4 ML VIAL IVP SCH (09:46)
[2016-09-27] MEDS: ASPIRIN 325 MG TABLET (ECOTRIN) PO SCH (09:46)
[2016-09-27] MEDS: CARVEDILOL 3.125 MG TABLET (COREG) PO SCH ×2 (09:47→21:11)
[2016-09-27] MEDS: POTASSIUM CHLORIDE 20 MEQ/PKT PACKET PO SCH ×2 (09:48→21:10)
[2016-09-27] MEDS: ENOXAPARIN SODIUM 40 MG/0.4 ML SYRINGE SUBCUT SCH (09:48)
[2016-09-27] MEDS: PANTOPRAZOLE SODIUM 40 MG TAB PO SCH (09:50)
--- NOTE | 2016-09-27 09:55 | NUR ---
NEURO CONSULT Spoke with Jessica regarding request for consultation with Dr. Marks ([phone]) for reason: Parkinsons disease, dementia.
[2016-09-27] MEDS: ACETAMINOPHEN 500 MG TABLET NG PRN (10:37)
[2016-09-27 11:46] VITALS: BP 135/66; PULSE 98; RESP 19; TEMP 97; O2SAT 98
--- NOTE | 2016-09-27 12:00 | NUR ---
Patient family members at bedside visiting with patient. Patient co generalized pain, and medicated earlier with tylenol 500mg po per do. Pain resolves to 08/05. Vincent Perez RN
[2016-09-27] MEDS ORDERED: ARIPiprazole 5 MG TAB PO ONE (12:45)
--- NOTE | 2016-09-27 15:14 | NUR ---
IV out and #22 guage started Left forearm. Patient awake and alert, needs frequent reorientation to place and time. Vincent Perez RN
[2016-09-27] MEDS: CARBIDOPA/LEVODOPA 25/250 MG TABLET PO SCH ×3 (15:26→21:11)
[2016-09-27 15:38] VITALS: BP 146/77; PULSE 72; RESP 19; TEMP 98.1; O2SAT 98
--- NOTE | 2016-09-27 15:48 | NUR ---
PHYSICAL THERAPY CO-SIGN The Physical Therapy Progress Notes documented by Heading Matcher And Assembler have been reviewed. I CONCUR W/SCHOOL AIDE NOTE; CONT PER TX PLAN Reviewed/Co-Signed by: Lidia Ward PT Documentation Done by: IRMA CR SCHOOL AIDE Addendum: 09/27/16 at 1548 by Lidia Ward PT Amended: Links added.
--- NOTE | 2016-09-27 18:00 | NUR ---
Patient family at bedside and requesting patient to have some ativan due to agitation, and I did administer ativan 2 mg ivp per do. Vincent Perez RN
[2016-09-27] MEDS: LORazepam 2 MG/ML VIAL IVP PRN (18:17)
[2016-09-27 20:00] VITALS: BP 130/64; PULSE 88; RESP 20; TEMP 97.9; O2SAT 97
--- NOTE | 2016-09-27 20:00 | NUR ---
Initial PM Note Pt was received lying in bed fully awake and oriented to her name only. Pt is confused and speaking inappropriately. No resp distress noted. IV site in LFA is without any signs of infiltration. Snider Cath to gravity is draining clear yellowish urine. Fall and safety precautions are in place.
[2016-09-27 20:39] VITALS: Ht 162.6 cm; Wt 73.9 kg
--- NOTE | 2016-09-27 21:11 | NUR ---
HS Medications HS pills given po with apple sauce and KCL powder with apple juice. No difficulty swallowing noted. Pt remains confused and disoriented. No agitation noted. Fall precautions are in place.
--- NOTE | 2016-09-27 23:00 | NUR ---
Rounds Pt is resting quietly in bed. Fall precautions are in place.
[2016-09-28 00:22] VITALS: BP 139/50; PULSE 84; RESP 20; TEMP 99; O2SAT 98
--- NOTE | 2016-09-28 01:00 | NUR ---
Rounds Pt is sleeping without any distress noted. Call light is with pt and bed alarm is on.
--- NOTE | 2016-09-28 03:00 | NUR ---
Rounds Pt is sleeping comfortably in bed.
--- NOTE | 2016-09-28 03:25 | NUR ---
CONSULT FOLLOW-UP W/DR ALBA Consult was called, RE mood disorder [facility]. "Dr. Mayo is reinforced concrete inspector".
[2016-09-28 03:43] VITALS: BP 90/52; PULSE 74; RESP 18; TEMP 99.2; O2SAT 95
--- NOTE | 2016-09-28 05:00 | NUR ---
Rounds Pt is resting comfortably in bed. Fall and safety precautions are in place. Call light is with pt and bed alarm is on.
[2016-09-28] MEDS: PIPERACILLIN/TAZO 3.375/DEX-IS 50 ML IV SCH ×3 (05:50→18:10)
[2016-09-28] MEDS: IPRATROPIUM/ALBUTEROL SULFATE 3 ML AMPUL.NEB INH SCH ×2 (07:44→20:16)
--- NOTE | 2016-09-28 07:57 | NUR ---
OPENING NOTE RECEIVED REPORT FROM NIGHT NURSE, PATIENT IS RESTING IN BED COMFORTABLY WITH NO COMPLAINTS OF PAIN, NO NOTED DISTRESS, DISCOMFORT OR SOB. PATIENT IS O2@2L VIA OXIMIZER AND TOLERATING WELL. PATIENT IS ALERT AND ORIENTED X1 BUT IS ABLE TO COMMUNICATE NEEDS TO STAFF. PATIENT IS BEDREST. CALL LIGHT IS WITHIN REACH AND WILL CONTINUE TO MONITOR.
[2016-09-28 08:00] VITALS: BP 119/61; PULSE 82; RESP 18; TEMP 97.6; O2SAT 99
[2016-09-28 08:33] LABS: BLOOD GAS PH 7.466 (7.350-7.450)
[2016-09-28] MEDS: FUROSEMIDE 40 MG/4 ML VIAL IVP SCH (09:05)
[2016-09-28] MEDS: POTASSIUM CHLORIDE 20 MEQ/PKT PACKET PO SCH ×2 (09:05→21:05)
[2016-09-28] MEDS: ENOXAPARIN SODIUM 40 MG/0.4 ML SYRINGE SUBCUT SCH (09:05)
[2016-09-28] MEDS: ASPIRIN 325 MG TABLET (ECOTRIN) PO SCH (09:06)
[2016-09-28] MEDS: CARBIDOPA/LEVODOPA 25/250 MG TABLET PO SCH ×4 (09:07→21:05)
[2016-09-28] MEDS: CARVEDILOL 3.125 MG TABLET (COREG) PO SCH ×2 (09:07→21:00)
[2016-09-28] MEDS: PANTOPRAZOLE SODIUM 40 MG TAB PO SCH (09:07)
--- NOTE | 2016-09-28 10:00 | NUR ---
NOTE PATIENT IS RESTING IN BED COMFORTABLY WITH NO COMPLAINTS OF PAIN, NO NOTED DISTRESS, DISCOMFORT OR SOB. BED IS IN LOWEST POSITION AND BED ALARM IS ON, CALL LIGHT IS WITHIN REACH. WILL CONTINUE TO MONITOR.
[2016-09-28] MEDS: LORazepam 2 MG/ML VIAL IVP PRN ×2 (11:24→21:12)
--- NOTE | 2016-09-28 12:18 | NUR ---
NOTE PATIENT IS RESTING IN BED COMFORTABLY WITH NO COMPLAINTS OF PAIN, NO NOTED DISTRESS, DISCOMFORT OR SOB. PATIENT WAS CLEANED AND REPOSITIONED AND TOLERATED IT WELL. CALL LIGHT IS WITHIN REACH AND WILL CONTINUE TO MONITOR.
[2016-09-28 12:29] VITALS: BP_SYST 116; BP_SYST 139; BP_DIAS 57; BP_DIAS 72; PULSE 88; RESP 18; TEMP 97.3; O2SAT 97
--- NOTE | 2016-09-28 14:30 | NUR ---
NOTE PATIENT IS RESTING IN BED COMFORTABLY WITH NO COMPLAINTS OF PAIN, NO NOTED DISTRESS, DISCOMFORT OR SOB. BED ALARM IS ON, BED IS IN LOWEST POSITION AND CALL LIGHT IS WITHIN REACH. DAUGHTER IS AT BEDSIDE AND WILL CONTINUE TO MONITOR.
--- NOTE | 2016-09-28 16:30 | NUR ---
NOTE PATIENT IS RESTING IN BED COMFORTABLY WITH NO COMPLAINTS OF PAIN, NO NOTED DISTRESS, DISCOMFORT OR SOB. BED ALARM IS ON, BED IS IN LOWEST POSITION AND CALL LIGHT IS WITHIN REACH AND WILL CONTINUE TO MONITOR
[2016-09-28 16:55] VITALS: BP 121/65; PULSE 83; RESP 16; TEMP 97; O2SAT 98
--- NOTE | 2016-09-28 18:12 | NUR ---
CLOSING NOTE PATIENT IS RESTING IN BED COMFORTABLY IN BED WITH NO COMPLAINTS OF PAIN, NO NOTED DISTRESS, DISCOMFORT OR SOB. PATIENT IS ALERT AND ABLE TO COMMUNICATE NEEDS TO STAFF BUT HAS MOMENTS OF CONFUSION. BED ALARM IS ON AND PATIENT IS EDUCATED NOT TO GET UP WITHOUT ASSISTANCE. CALL LIGHT IS WITHIN REACH AND WILL GIVE REPORT TO NIGHT NURSE.
[2016-09-28 20:00] VITALS: BP 106/54; PULSE 87; RESP 20; TEMP 98; O2SAT 94
--- NOTE | 2016-09-28 20:00 | NUR ---
PM Assessment Pt awake alert oriented x 2. Name and date of . Noted to be forgetful at time. Pt whispers stating seen a person in the room. pt reality oriented, encouraged pt to verbalize concerns. Breathing Symmetrical, nonlabored breathing. Oxymizer in place. 94% spo2 at the time. IV on the left FA 22g, saline locked. patent. Pain management education verbally. provided. Pt verbalized understanding. Educated to use call light for assistance. Verbalized understanding. Safety precaution in place. bed in the lowest positioned. locked. will continue to monitor
[2016-09-29] VITALS (7 sets, daily range): BP systolic 107–134; BP diastolic 55–73; PULSE 75–113; RESP 18–22; TEMP 97.2–99.6; O2SAT 92–100
[2016-09-29] MEDS: PIPERACILLIN/TAZO 3.375/DEX-IS 50 ML IV SCH ×4 (00:31→18:13)
--- NOTE | 2016-09-29 02:04 | NUR ---
Note On tele monitor V-tach noted. 150's heart rate approximally 6 seconds Pt aroused to name. Pt noted SR on tele. willl continue to monitor
[2016-09-29] MEDS: IPRATROPIUM/ALBUTEROL SULFATE 3 ML AMPUL.NEB INH SCH ×4 (02:08→19:37)
--- NOTE | 2016-09-29 06:35 | NUR ---
Closing note Pt eye closed. No distress noted,. no facial grimacing noted. hourly rounds done. Comfort needs met throughout the shift. safety precaution was maintained throughout the shift. Will endorsed to the day shift nurse to continue care.
[2016-09-29 07:05] LABS: CALCIUM 9.6 mg/dL (8.4-11.0); CREATININE 1.66 mg/dL (0.55-1.30); POTASSIUM 4.2 mmol/L (3.5-5.1)
--- NOTE | 2016-09-29 08:00 | NUR ---
OPENING NOTE PATIENT IS AWAKE, CONFUSED. MUMBLING INCOHERENTLY
[2016-09-29] MEDS: ENOXAPARIN SODIUM 40 MG/0.4 ML SYRINGE SUBCUT SCH (08:50)
[2016-09-29] MEDS: PANTOPRAZOLE SODIUM 40 MG TAB PO SCH (08:51)
[2016-09-29] MEDS: ASPIRIN 325 MG TABLET (ECOTRIN) PO SCH (08:51)
[2016-09-29] MEDS: POTASSIUM CHLORIDE 20 MEQ/PKT PACKET PO SCH ×2 (08:51→09:00)
[2016-09-29] MEDS: CARBIDOPA/LEVODOPA 25/250 MG TABLET PO SCH ×4 (08:51→20:34)
[2016-09-29] MEDS: FUROSEMIDE 40 MG/4 ML VIAL IVP SCH (08:51)
[2016-09-29] MEDS: CARVEDILOL 3.125 MG TABLET (COREG) PO SCH ×2 (08:52→20:35)
[2016-09-29] MEDS: FUROSEMIDE 40 MG TABLET PO SCH (09:00)
--- NOTE | 2016-09-29 09:00 | NUR ---
MEDICATED PER ORDERS. PATIENT NEURO STATUS UNCHANGED
--- NOTE | 2016-09-29 12:15 | NUR ---
PATIENT FED LUNCH BY PLASTIC PARTS FABRICATOR. NO CHANGE IN NEURO STATUS.
--- NOTE | 2016-09-29 12:58 | NUR ---
DC PLANNING Called & spoke w Dr Dowell earlier today, covering for Dr Dawson, to discuss dc planning. Gave order for dc planning for SNF. Called & left msg w Geeta @ [facility], ph [phone]. Called & spoke w dtr Denys Baltaazr, ph [phone], states agreeable w plan for snf, is looking into getting Medi-peter for pt for credit operations processor care. Gave her list of contracted SNF's: [facility], [facility], [facility], [facility], [facility], [facility]. States will look into facilities & give us her primary choice, ok to fax to [facility] & [facility] for now. Informed gricelda Khan program services planner.
--- NOTE | 2016-09-29 13:07 | NUR ---
Route Jumper Note At the request of Adrianna SHIN LCSW phoned [place] with [facility] legal services, , to assess patient for possible Medi-Frank application.
--- NOTE | 2016-09-29 14:28 | NUR ---
PATIENT RESTING. NEURO STATUS UNCHANGED.
--- NOTE | 2016-09-29 16:04 | NUR ---
PHYSICAL THERAPY CO-SIGN The Physical Therapy Progress Notes documented by Public Affairs Manager have been reviewed. Reviewed/Co-Signed by: Teresa Swanson Documentation Done by:IRMA CR AIR CONDITIONING INSTALLER SUPERVISOR POC REVIEWED W/ AIR CONDITIONING INSTALLER SUPERVISOR; WILL BENEFIT W/ P.T. 09/29/16 XR CHEST:NO ACUTE ABNORMALITY. Addendum: 09/29/16 at 1604 by Teresa Swanson PT Amended: Links added.
--- NOTE | 2016-09-29 18:09 | NUR ---
PATIENT MEDICATED PER ORDERS. PT ALSO GIVEN ATIVAN. PER DAUGHTER VIA PHONE PATIENT RESPONDS WELL TO ATIVAN AND IS ABLE TO SLEEP.
[2016-09-29] MEDS: LORazepam 2 MG/ML VIAL IVP PRN (18:13)
--- NOTE | 2016-09-29 19:30 | NUR ---
NOTES RECEIVED THE PT FROM THE DAY NURSE,PT AWAKEN FOR VS BUT IS CONFUSED TO TIME AND PLACE REORIENTED TO TIME AND PLACE,PT KEEPS TAKING THE OXYMIZER OFF BUT IS SAT. AT 95%.SCD IN PLACE TO LOWER EXTREMITIES,IV INTACT TO LT FOREARM.BED ALARM IS ON SIDE RAILS ARE UP.CONTINUE TO MONITOR,CALL LIGHT WITHIN REACH.SAFETY MEASURES IN PROGRESS.
--- NOTE | 2016-09-29 21:39 | NUR ---
notes pt awake,and is keeping the oxymizer in her nose.no complaints given will continue to monitor.
--- NOTE | 2016-09-29 23:18 | NUR ---
notes pt sleeping ,no respiratory difficulty noted.call light within reach.continue to monitor.
[2016-09-30] VITALS (7 sets, daily range): BP systolic 102–150; BP diastolic 50–101; PULSE 62–114; RESP 17–20; TEMP 97–98.9; O2SAT 94–98
[2016-09-30] MEDS: IPRATROPIUM/ALBUTEROL SULFATE 3 ML AMPUL.NEB INH SCH ×4 (00:45→22:58)
--- NOTE | 2016-09-30 01:41 | NUR ---
notes pt repositioned with pillow support.call light within reach.continue to monitor.
--- NOTE | 2016-09-30 03:23 | NUR ---
notes pt sleeping,awaken and repositioned with pillow support.call light within reach
--- NOTE | 2016-09-30 05:23 | NUR ---
notes pt awake ,no c/o pain or sob.pt asking for coffee.continue to monitor.
--- NOTE | 2016-09-30 06:05 | NUR ---
closing notes pt awake but confused,coffee given .pt educated on calling the nurse and not getting out of bed.will endorse the care of the pt to the day nurse.
--- NOTE | 2016-09-30 06:09 | NUR ---
notes o2 turned up to 3l/min.as ordered.
[2016-09-30 06:44] LABS: BASOPHILS # (AUTO) 0.1 K/uL (0.0-0.2); BASOPHILS % (AUTO) 0.5 % (0.0-2.0); EOSINOPHILS # (AUTO) 0.1 K/uL (0.0-0.4); EOSINOPHILS % (AUTO) 0.6 % (0.0-4.0); HEMATOCRIT 40.8 % (36-48); HEMOGLOBIN 13.5 g/dL (12.0-16.0); LYMPHOCYTES # (AUTO) 1.4 K/uL (1.0-5.5); LYMPHOCYTES % (AUTO) 13.5 % (20.5-51.5); MEAN CORPUSCULAR HEMOGLOBIN 29 pg (27-31); MEAN CORPUSCULAR HGB CONC 33 % (32-36); MEAN CORPUSCULAR VOLUME 89 fL (79.0-98.0); MONOCYTES # (AUTO) 0.6 K/uL (0.0-1.0); MONOCYTES % (AUTO) 5.9 % (1.7-9.3); NEUTROPHILS # (AUTO) 8.1 K/uL (1.8-7.7); NEUTROPHILS % (AUTO) 79.5 % (40.0-70.0); PLATELET COUNT (AUTO) 336 K/uL (130-430); RED BLOOD CELL COUNT(AUTO) 4.59 MIL/uL (4.2-6.2); RED CELL DISTRIBUTION WIDTH 13.2 % (9.0-15.0); WHITE BLOOD COUNT (AUTO) 10.3 K/uL (4.8-10.8)
[2016-09-30 06:47] LABS: CALCIUM 9.9 mg/dL (8.4-11.0); CREATININE 1.81 mg/dL (0.55-1.30); POTASSIUM 3.9 mmol/L (3.5-5.1)
--- NOTE | 2016-09-30 08:00 | NUR ---
Pt refusing to get the ABG done. Reorient pt but she still refuse and will not lay still to get the blood drawn.
[2016-09-30] MEDS: POTASSIUM CHLORIDE 20 MEQ/PKT PACKET PO SCH (09:56)
[2016-09-30] MEDS: ENOXAPARIN SODIUM 40 MG/0.4 ML SYRINGE SUBCUT SCH (09:57)
[2016-09-30] MEDS: ASPIRIN 325 MG TABLET (ECOTRIN) PO SCH (09:57)
[2016-09-30] MEDS: CARVEDILOL 3.125 MG TABLET (COREG) PO SCH ×2 (09:58→20:56)
[2016-09-30] MEDS: CARBIDOPA/LEVODOPA 25/250 MG TABLET PO SCH ×4 (09:59→20:55)
[2016-09-30] MEDS: FUROSEMIDE 40 MG TABLET PO SCH (09:59)
[2016-09-30] MEDS: PANTOPRAZOLE SODIUM 40 MG TAB PO SCH (09:59)
--- NOTE | 2016-09-30 10:58 | NUR ---
DISCHARGE PLANNING Spoke with Jaymie in admitting at [facility] patient accepted. Jaymie currently working on insurance auth and will give bed assignment once auth has been received. Left voice message for PT dept requesting call when todays PT notes are available to fax [facility] for SNF auth. DCP will follow up. Addendum: 09/30/16 at 1429 by Erin ARRIAGA Faxed SNF referral to [facility] and [facility]. Will follow up. Per KIP Connor at [facility] denied patient due to no bed available. Will follow up. Addendum: 09/30/16 at 1501 by Erin Bach DP Called [facility] [phone] left voice message for Shalini in admitting requesting return call back. Called [facility] [phone] left voice message for Terrance in admitting requesting return call back with facility decision. Will follow up. Addendum: 09/30/16 at 1552 by Erin Bach DP Still pending facility decision. Placed transportation packet in nurses station. Contracted ambulance [facility] . Pending [facility] facility decision. Addendum: 09/30/16 at 1712 by Erin Bach DP spoke with Aishwarya in admitting at [facility] who will come in AM to evaluate patient due to patient confusion and facility will make decision at that time.
--- NOTE | 2016-09-30 11:16 | NUR ---
Pt confused and attempting to get out of bed. Pt bed alarm is on and pt repositioned and attempted to re orient patient. Pt saying "Cary is in trouble", and "shes gonna try to kill me if I don't get the money."
--- NOTE | 2016-09-30 11:17 | NUR ---
RIO PLANNING Called & spoke w dtr Denys Baltazar, ph [phone], informed possible acceptance @ [facility]. States that went to see all contracted SNF's yest & preference is #1 [facility], [facility], & #3 [facility]. Informed that if her preferences do not accept or have no beds would need to cont looking for contracted snf that will accept. States she is agreeable w other contracted snf if her preferences do not have bed. Informed rio Khan urban and regional planner.
[2016-09-30] MEDS: LORazepam 2 MG/ML VIAL IVP PRN (11:21)
[2016-09-30 13:36] LABS: ABG TOTAL HEMOGLOBIN 13.7 G/dL (12.0-18.0); BLOOD GAS BASE EXCESS 2.9 mmol/L (-3.0-3.0); BLOOD GAS PH 7.492 (7.350-7.450)
[2016-09-30 13:37] LABS: BLOOD GAS COHb% 0.2 % (0.5-1.5); BLOOD GAS HHB 1.6 % (0.0-6.0); BLOOD O2Hb% 97.6 % (94.0-97.0)
--- NOTE | 2016-09-30 14:39 | NUR ---
ROOM XFER TRANSFERRED PT TO [facility] FOR SAFETY. FALL RISK PRECAUTIONS CONTINUED
--- NOTE | 2016-09-30 15:15 | NUR ---
ROUNDS CHECKED ON PATIENT, PATIENT RESTING IN BED, WATCHING TV, SEEMS CALM AT THIS TIME. CALL LIGHT IN REACH, BED ALARM ON.
--- NOTE | 2016-09-30 15:32 | NUR ---
Nutrition F/U Admitting Diagnosis acute respiratory failure, acute NJ, acute CHF, acute APOLINAR Past Medical History Parkinson's disease, bipolar disorder, DM, HTN Pertinent Medications lovenox, protonix, KCl packet, lasix, morphine, coreg, aspirin zofran, ativan Current Diet Order Regular, mechanical soft, low carb-45 Height (Feet) 5 feet Height (Inches) 4.00 inches Weight (Pounds) 163 pounds (admission) 09/30/16: 151 lb, 69 kg (bedscale) Weight (Calculated Kilograms) 73.938718 kilograms Patient Weight 73.936 kg Body Mass Index 27.98 kg/m2 (normal, geriatric status) [place]/Adjusted Body Weight IBW: 120 lb/54.5 kg; 136% IBW; adj BW (obesity): 131 lb/59 kg Estimated Needs 6280-4736 kcal/day (BEE x 1.2-1.5 for anabolism) Grams of Protein per Day 44-65 gm/day (0.8-1.2 gm/kg IBW for APOLINAR and anabolism) Fluid Intake Goal Per MD (CHF, APOLINAR) Pertinent Labs 09/30/16: BG 167 H, CRE 1.81 H, eGFR 30 L, BUN 35 H 09/27/16: ALB 2.7 L 09/26/16: BNP 851 H 09/24/16: Troponin 2.924 H Other Subjective Data Physical: Pt seen resting in bed, seemed confused and unable to answer questions coherently. Pt appeared adequately nourished for height. Bedscale wt: 151 lb (69 kg), unsure of accuracy, significantly lower than admission wt. Per EMR, pt no longer edematous. GI Integrity: Abdomen is soft and non-distended with active bowel sounds. BM x2 09/30. No report of n/v/d/c. PO Intakes: PO records average 53% x8 meals. Pt reports good appetite. Pt eats with minimum assistance. Previous RD assessment states, per pt's son, pt's intake and appetite has declined and she doesn't eat very much at home. Integumentary: Jim score 17. No skin issues noted. Plans/Procedures: Pending DC to SNF. Current diet is appropriate, but pt is not yet meeting optimum nutrition. MD did not sign RD rec for Boost Glucose Control BID. Recommend consideration of speech therapy evaluation d/t risk of aspiration. Pt is not appropriate for nutrition education. Problem, Etiology, Signs/Symptoms Malnutrition related to illness, decreased appetite, and impaired cognitive ability as evidenced by reported 27% wt loss x 1 year, and estimated PO intake less than estimated nutritional requirements. Expected Outcomes or Goals * Monitor tolerance of diet, appetite, and PO intakes with goal of pt meeting at least 75% of estimated nutritional needs, labs trending WNL, normal GI function, skin integrity/weight maintenance Dietitian Recommendations * Continue CCHO, mechanical soft, low carb-45 diet per MD order * Consider speech therapy evaluation d/t aspiration risk * Recommend Boost Glucose Control BID which provides additional 500 kcals and 28 gm protein per day * Recommend providing assistance w/ meals to encourage safe PO intake Follow Up High Risk: F/U in 2-3days Addendum: 10/01/16 at [address] CORRECTIONS: Current Diet Order Regular, mechanical soft, CCHO low carb-45 (x2 days) Fluid Intake Goal Per MD ([facility]) Dietitian Recommendations * Continue regular, mechanical soft, CCHO low carb-45 diet per MD order * Consider speech therapy evaluation d/t aspiration risk * Recommend Boost Glucose Control BID (additional 500 kcal and 28 gm protein per day) * Recommend providing assistance w/ meals to encourage safe PO intake RD reviewed/approved architecture intern's note. LP, RD
--- NOTE | 2016-09-30 16:10 | NUR ---
NOTIFIED PATIENT FOUND ON FLOOR ON HER KNEES. NO SIGNS OF PAIN OR DISCOMFORT, PATIENT ASSISTED BACK TO BED. NOTED SUPERFICIAL SKIN ABRASION WITH NO BLEEDING. NO BRUISING OR COMPLAIN OF PAIN AT THIS TIME. PT UNABLE TO STATE WHAT MADE HER TRY AND GET UP, SHE SAYING THINGS THAT DO NOT MAKE SENSE. PATIENT HAD EARLIER BEEN MOVED CLOSER TO NURSES STATION EARLIER, BEING TRANSFERRED FROM 123 A TO 121 ACROSS FROM STATION FOR SAFETY AND CLOSE MONITORING. JEROD ALDANA NOTIFIED, BRENDA CALLED, LEFT A MESSAGE WITH HER LUMBER BUYER WHO STATED SHE WILL TEXT HER.
--- NOTE | 2016-09-30 16:10 | NUR ---
PHYSICAL THERAPY CO-SIGN The Physical Therapy Progress Notes documented by Garbage Pick Up Man have been reviewed. I CONCUR W/MANAGING EDITOR NOTE; CONT PER TX PLAN Reviewed/Co-Signed by: Lidia Ward PT Documentation Done by: IRMA CR MANAGING EDITOR Addendum: 10/01/16 at 1506 by Lidia Ward PT Amended: Links added.
--- NOTE | 2016-09-30 16:15 | NUR ---
CALLED JEROD REGARDING PATIENT.
--- NOTE | 2016-09-30 16:20 | NUR ---
Patient transferred to room 132B toom with a sitter.
--- NOTE | 2016-09-30 16:25 | NUR ---
Dr Dawson notified of pt condition. No new orders.
--- NOTE | 2016-09-30 16:33 | NUR ---
SPOKE WITH PATIENTS DAUGHTER ANNA. NOTIFIED OF PATIENTS CONDITION.
--- NOTE | 2016-09-30 17:35 | NUR ---
Round talking to patient about what happened earlier. she says she was just trying to " get around with her ex and even things out with her klds" she still gives no reason as to why she tryinh to get up out of bed.
--- NOTE | 2016-09-30 18:30 | NUR ---
Pt trying to get out of bed with sitter at bedside. patient reoriented, repositioned and dinner tray provided.
--- NOTE | 2016-09-30 19:30 | NUR ---
Report endorsed to machinist tool and die rn, at bedside. pt is laying supine, not trying to get out of bed at this time. call light in reach, bed alarm is armed, sitter at bedside. No transfer bed available per the egg caser notes. report endorsed to machinist tool and die RN.
--- NOTE | 2016-09-30 19:30 | NUR ---
NOTES RECEIVED THE PT FROM THE DAY NURSE,FAMILY AT THE BEDSIDE.PT AWAKEN FOR VS.NO C/O PAIN OR DISCOMFORT.IV INTACT TO LT HAND.MONITOR IN PLACE AND SHOWS SR. BED ALARM IS ON SITTER IS AT THE BEDSIDE.CALL LIGHT IS WITHIN REACH,SAFETY MEASURES IN PROGRESS.WILL CONTINUE TO MONITOR.
--- NOTE | 2016-09-30 21:15 | NUR ---
NOTES PT AWAKEN FOR MEDICATIONS,PO MEDS TAKEN WELL.CONTINUE TO MONITOR.
--- NOTE | 2016-09-30 23:30 | NUR ---
notes pt sleeping,no respiratory distress noted.sitter is at the bedside.
[2016-10-01 00:23] VITALS: BP 107/61; PULSE 83; RESP 16; TEMP 97; O2SAT 98
[2016-10-01] MEDS: IPRATROPIUM/ALBUTEROL SULFATE 3 ML AMPUL.NEB INH SCH ×4 (01:42→19:16)
--- NOTE | 2016-10-01 01:42 | NUR ---
notes pt remains asleep,sitter is at the bedside.continue to monitor.
--- NOTE | 2016-10-01 02:41 | NUR ---
notes pt awake confused and trying to get out of the bed RN will medicate the pt.continue to monitor,
--- NOTE | 2016-10-01 03:27 | NUR ---
notes pt awake confused but is staying in the bed.sitter remains at the bedside.
[2016-10-01 04:32] VITALS: BP 101/54; PULSE 69; RESP 20; TEMP 97.3; O2SAT 99
--- NOTE | 2016-10-01 05:29 | NUR ---
notes pt resting with eyes closed.call light within reach.sitter at the bedside.
--- NOTE | 2016-10-01 06:26 | NUR ---
closing notes pt awake and states "i want to go home" no other complaints given.will endorse the care of the pt to the day nurse.
[2016-10-01 07:30] VITALS: BP 113/63; PULSE 77; RESP 18; TEMP 97.8; O2SAT 98
--- NOTE | 2016-10-01 08:00 | NUR ---
dr Beth gomez
[2016-10-01] MEDS: POTASSIUM CHLORIDE 20 MEQ/PKT PACKET PO SCH (08:54)
[2016-10-01] MEDS: ASPIRIN 325 MG TABLET (ECOTRIN) PO SCH (08:54)
[2016-10-01] MEDS: ARIPiprazole 2 MG TAB PO SCH (08:55)
[2016-10-01] MEDS: CARVEDILOL 3.125 MG TABLET (COREG) PO SCH ×2 (08:55→21:20)
[2016-10-01] MEDS: PANTOPRAZOLE SODIUM 40 MG TAB PO SCH (08:55)
[2016-10-01] MEDS: CARBIDOPA/LEVODOPA 25/250 MG TABLET PO SCH ×4 (08:55→21:20)
[2016-10-01] MEDS: SERTRALINE HCL 50 MG TABLET PO SCH (08:56)
[2016-10-01] MEDS: FUROSEMIDE 40 MG TABLET PO SCH (08:56)
[2016-10-01] MEDS: LORazepam 2 MG/ML VIAL IVP PRN ×3 (09:13→20:59)
[2016-10-01] MEDS: ENOXAPARIN SODIUM 40 MG/0.4 ML SYRINGE SUBCUT SCH (09:14)
--- NOTE | 2016-10-01 09:45 | NUR ---
physical therapy. Addendum: 10/01/16 at 1354 by Velma Bauer RN PT at beside, ambulate patient and ROM done
[2016-10-01 11:57] VITALS: BP 136/85; PULSE 91; RESP 18; TEMP 97.4; O2SAT 98
--- NOTE | 2016-10-01 13:33 | NUR ---
DC LAST SCOURER Aishwarya & Norma from [facility] came to eval pt. After yuliya stated could not accept pt @ this time. Called & spoke w dtr Denys & informed [facility] & [facility] did not accept & had not heard back from [facility]. States if cannot get bed @ one of her preferred SNF's then would be agreeable w [facility]. Called & spoke w Shalini @ [facility], ph [phone], states did not receive fax to refax, refaxed pt info to [phone], per Shalini's request. Called & spoke w Geeta @ [facility] & updated, states she will try to get auth for SNF from [facility]. Questioning new psych meds & if stable to dc to snf. Faxed Geeta Psych consult, today's psych consult progress note along w progress notes last 2days, & today's P/T note. David Khan. Addendum: 10/01/16 at 1414 by Erin RARIAGA spoke with Jaymie in admitting at [facility] patient denied, too high risk due to patient behavior and facility has no sitter available per the request of patient daughter. KIP Rodas made aware. Addendum: 10/01/16 at 1512 by Erin ARRIAGA Received voice message from Anais in admitting at [facility], denied due to patient age. KIP Rodas made aware. Addendum: 10/01/16 at 1607 by Adrianna Disla RN Called & spoke w Geeta @ [facility], ph [phone], & informed no accepting snf's. States pt can go to [facility] if ordered by , will fax list of contracted Geropsych facilities. Called & discussed w Dr Dawson gave order for geropsych, to inform Dr Trevino. Informed Nicole CAMPBELL. Nicole called dtr Denys & then transferred call to me. Explained to Denys, no acceptance @ [facility], pt started on psych meds today, ordered Geropsych. States she is agreeable w [facility] prefers facility close to here. Pt was @ [facility] in [place] & states too far would not want her to go there. Wants to know where pt going before pt transferred. Updated pt's nurse Velma. Addendum: 10/01/16 at 1617 by Adrianna Disla RN Received call back from Geeta @ [facility], tried faxing list x2 & not going thru. [facility]: [facility], [facility], [facility], [facility], [facility]. Can use [facility] w auth #[id number], if unable to then can use [facility] w same auth#, call & let her know so she can document. Kerry Rivera.
--- NOTE | 2016-10-01 13:53 | NUR ---
Pt daughter at bedside, Ambar. Updated on new meds Zoloft and abilify. and ativan was administered.
--- NOTE | 2016-10-01 15:58 | NUR ---
Social Service Note: Pt has order to DC to [facility]. SPORTS PHYSICIAN has contacted [facility] ([phone]). SPORTS PHYSICIAN spoke to Marty who states that a authorization would need to be obtained from pt's insurance and pt would need to be on a 5150. Marty states to fax information to: [phone] and he will review to see if they could send their PET team out to evaluate. Addendum: 10/01/16 at 1631 by Nicole Alvarez LCSW SPORTS PHYSICIAN received call Marty at [facility] who states that they cannot except the pt due to pt being on oxygen. SPORTS PHYSICIAN will continue to search for [facility] placement.
[2016-10-01 16:23] VITALS: BP_SYST 103; BP_SYST 106; BP_DIAS 55; BP_DIAS 74; PULSE 60; PULSE 77; RESP 16; RESP 18; TEMP 97.8; TEMP 98.2; O2SAT 93
--- NOTE | 2016-10-01 18:01 | NUR ---
RN ROUNDS PT SITTING UP AND APPEARS COMFORTABLE. BED IN LOWEST POSITION AND BED ALARM ARMED. DO PRESENT
--- NOTE | 2016-10-01 18:56 | NUR ---
Closing note Patient with sitter at bedside, no acute distress. Pt still has confusion. Pt has bed alarm armed. Call light in reach. Will endorse to night RN.
[2016-10-01 19:30] VITALS: BP 147/83; PULSE 92; RESP 18; TEMP 97.7; TEMP 97.8; O2SAT 98
--- NOTE | 2016-10-01 19:30 | NUR ---
NOTES RECEIVED THE PT FROM THE DAY NURSE,PT AWAKE CONFUSED,REORIENTED TO TIME AND PLACE.SITTER AT THE BEDSIDE.IV INTACT TO LT HAND. PT CHANGED TO MED.SURG.MONITOR REMOVED.CALL LIGHT WITHIN REACH SAFETY MEASURES IN PROGRESS.CONTINUE TO MONITOR.
--- NOTE | 2016-10-01 21:36 | NUR ---
NOTES PT VERY RESTLESS AND TRYING TO GET OUT OF THE BED,RN IS AT THE BEDSIDE TO MEDICATE THE PT.SITTER REMAINS AT THE BEDSIDE.
--- NOTE | 2016-10-01 23:38 | NUR ---
NOTES PT SLEEPING,CALL LIGHT WITHIN REACH.SITTER REMAINS AT THE BEDSIDE.
[2016-10-02] VITALS (8 sets, daily range): BP systolic 101–145; BP diastolic 59–86; PULSE 74–111; RESP 16–20; TEMP 96.3–98.9; O2SAT 94–98
[2016-10-02] MEDS: IPRATROPIUM/ALBUTEROL SULFATE 3 ML AMPUL.NEB INH SCH ×4 (01:11→20:38)
--- NOTE | 2016-10-02 01:48 | NUR ---
NOTES PT SLEEPING ,NO DISTRESS NOTED.SITTER REMAINS AT THE BEDSIDE.
--- NOTE | 2016-10-02 03:20 | NUR ---
NOTES PT SLEEPING.NO DISTRESS NOTED.SITTER REMAINS AT THE BEDSIDE.
--- NOTE | 2016-10-02 04:24 | NUR ---
NOTES PT MOVED TO 121 B VIA THE BED.SITTER IS AT THE BED SIDE.
--- NOTE | 2016-10-02 05:25 | NUR ---
NOTES PT RESTING QUIETLY,SITTER REMAINS AT THE BEDSIDE.CONTINUE TO MONITOR.
--- NOTE | 2016-10-02 06:00 | NUR ---
SITTER: RECEIVED PATIENT FROM RAISED PRINTER SITTER, SLEEPING BUT TALKING TO SELF. ON O2 AT 2 L NC . CALL LIGHT WITHIN REACH. SITTER AT THE BEDSIDE.
--- NOTE | 2016-10-02 06:21 | NUR ---
CLOSING NOTES PT RESTING WITH EYES CLOSED.SITTER IS AT THE BED SIDE,WILL ENDORSE THE CARE OF THE PT TO THE DAY NURSE.
--- NOTE | 2016-10-02 07:10 | NUR ---
NRSG; RECEIVED PATIENT FROM NIGHT C CONSULTANT, AWAKE,,CONFUSED AND ORIENTED TO NAME ONLY, RESPIRATION EVEN AND UNLABORED. LUNGS CLEAR BILATERAL UPON AUSCULTATION. ABDOMEN SOFT WITH BOWEL SOUNDS X 4 QUADRANTS, RADIAL AND PEDAL PULSE PALPABLE. HAD SALINE LOCK ON THE LEFT FOREARM AND COVERED WITH PAUL INTACT AND INPLACED, NO S/S OF INFILTRATION. HAD PERIANAL REDNESS, INCONTINENT OF URINE. KEPT CLEANED AND DRY. REDNESS ON REANAL AREA AND Z-GUARD APPLIED SPARINGLY . CALL LIGHT WITHIN REACH.
--- NOTE | 2016-10-02 08:00 | NUR ---
POSITION: REPOSITIONED AND HOB 30 DEGREES AND ASSISTED TO FEED FOR BREAKFAST. CALL LIGHT WITHIN REACH.
--- NOTE | 2016-10-02 08:21 | NUR ---
Social Service Note: ROOF PLUMBER contacted the following hospitals provided by pt's insurance: [facility] ([facility])-they do not take any HMO patients; [facility]- no patients on oxygen; [facility]- no patients on oxygen; [facility]- information has been faxed for review, they do not always take pt's with oxygen; [facility]- left message for intake department. ROOF PLUMBER will update insurance service representative of outcome with these psych facilities. Addendum: 10/02/16 at 0831 by Nicole Alvarez LCSW ROOF PLUMBER received a call back from [facility] ([phone]) who stated that they are a consult team only. ROOF PLUMBER will wait for Robert Loya to review pt's information; ROOF PLUMBER will contact insurance to update them on the list provided. Addendum: 10/02/16 at 1050 by Nicole Alvarez LCSW [facility] spoke to Anthony at [facility]; Anthony states that his physician is going to review due to pt's high acuity; Anthony states that he will call back with physicians determination. [facility] has called Geeta ([phone]) to update her; VALARIE left a message. Addendum: 10/02/16 at 1100 by Nicole Alvarez LCSW [facility] re-contacted [facility] and spoke to Marty to alert him pt was taken off oxygen this morning. Marty states that the pt will need to be off oxygen for 24 hours before they will re-evaluate to determine if pt could be accepted to their unit. [facility] will update patient case coordinator. Addendum: 10/02/16 at 1136 by Nicole Alvarez LCSW [facility] received a call from Anthony at [facility] who states that the physician has denied the pt due to the high acuity. Addendum: 10/02/16 at 1421 by Nicole Alvarez LCSW [facility] has faxed pt's information to [facility]; [facility]N called and left a message for their intake department to check on status of referral. Addendum: 10/02/16 at 1531 by Nicole Alvarez LCSW [facility] has contacted [facility] and left another message to check on the status of the referral.
[2016-10-02] MEDS: ARIPiprazole 2 MG TAB PO SCH (09:11)
[2016-10-02] MEDS: ASPIRIN 325 MG TABLET (ECOTRIN) PO SCH (09:12)
[2016-10-02] MEDS: CARVEDILOL 3.125 MG TABLET (COREG) PO SCH ×2 (09:12→20:16)
--- NOTE | 2016-10-02 09:12 | NUR ---
Discharge Planning Discussed plan of care w/Dr Dawson in Nurse's station. Cm explained that one barrier for Psych placement was d/t patient still receiving O2 via NC. Also explained that Psych/SNF placement was complicated by limited number of facilities contracted w/pt's HMO. verbalized understanding. KIP also discussed w/BEN Rivera who stated that she is following up with inquiries and will touch base with KIP @ [facility] today.
[2016-10-02] MEDS: POTASSIUM CHLORIDE 20 MEQ/PKT PACKET PO SCH (09:13)
[2016-10-02] MEDS: FUROSEMIDE 40 MG TABLET PO SCH (09:13)
[2016-10-02] MEDS: CARBIDOPA/LEVODOPA 25/250 MG TABLET PO SCH ×4 (09:14→20:15)
[2016-10-02] MEDS: PANTOPRAZOLE SODIUM 40 MG TAB PO SCH (09:14)
[2016-10-02] MEDS: ENOXAPARIN SODIUM 40 MG/0.4 ML SYRINGE SUBCUT SCH (09:14)
[2016-10-02] MEDS: SERTRALINE HCL 50 MG TABLET PO SCH (09:14)
--- NOTE | 2016-10-02 09:25 | NUR ---
ROUNDS: SEEN AND EXAMINED BY DR. DUDLEY AND SAID TO REMOVE O2 AND RECHECK O2 SAT IN 15 MIN.
--- NOTE | 2016-10-02 09:45 | NUR ---
ORDER: HAD AN ORDER OF ABG ROOM AIR
--- NOTE | 2016-10-02 10:00 | NUR ---
ACTIVITY: TURNED Q 2 HRS. AND PILLOWS IN BETWEN LEGS. CALL LIGHT WITHIN REACH.
[2016-10-02 10:04] LABS: BLOOD GAS PH 7.469 (7.350-7.450)
[2016-10-02 10:05] LABS: ABG TOTAL HEMOGLOBIN 14.6 G/dL (12.0-18.0); BLOOD GAS BASE EXCESS 0.6 mmol/L (-3.0-3.0); BLOOD GAS COHb% 0.7 % (0.5-1.5); BLOOD GAS HHB 5.2 % (0.0-6.0); BLOOD O2Hb% 93.5 % (94.0-97.0)
--- NOTE | 2016-10-02 12:28 | NUR ---
ACTIVITY: REPOSITIONED FOR LUNCH. PERIANAL AREA RED. SKIN BARRIER APPLIED. HOB 45 DEGREES. CALL LIGHT WITHIN REACH,
--- NOTE | 2016-10-02 14:00 | NUR ---
INCONTINENT: INCONTINENT OF URINE WHILE DOING PT. KEPT CLEANED AND DRY. SKIN BARRIER APPLIED AND BACK BY PT TO BED. SITTER AT THE BEDSIDE.
--- NOTE | 2016-10-02 16:00 | NUR ---
PHYSICAL THERAPY CO-SIGN The Physical Therapy Progress Notes documented by Dye Machine Operator have been reviewed. Reviewed/Co-Signed by: Yuli Hauser, PT Documentation Done by: Johnathon Morrison PTA I concur with the documentation of this JAVA MOBILE DEVELOPER. Plan: continue PT as per plan of care. Addendum: 10/03/16 at 0840 by Yuli Hauser PT Amended: Links added.
--- NOTE | 2016-10-02 16:14 | NUR ---
ACTIVITY: TURNED TO SIDE. INCONTINENT OF URINE. KEPT CLEANED AND DRY . SKIN BARRIER APPLIED TO REDDENED AREA. SITTER AT THE BEDSIDE.
--- NOTE | 2016-10-02 18:15 | NUR ---
CLOSING/AGITATION: AGITATED AND ANXIOUS , TRYING TO GET OUT FROM BED AND THROWING TOWEL ON FLOOR , DARIEN OLIVERA AND CHARGE NURSE NOTIFIED . DAUGHTER JUST ARRIVED AND REQUEST FOR ATIVAN TO GIVE BUT UNFORTUNATELY, WAS DISCONTINUED . DR. DUDLEY WAS PAGED BY NEURODIAGNOSTIC TECHNICIAN. WILL WAIT FOR THE RETURN CALL. TRYING TO CALM HER DOWN BUT UNSUCCESSFUL.
--- NOTE | 2016-10-02 18:27 | NUR ---
paged doctor paged doctor richards for the second page for orders. spoke to mik
[2016-10-02] MEDS ORDERED: HALOPERIDOL LACTATE 5 MG/ML VIAL IM ONE (18:45)
--- NOTE | 2016-10-02 18:45 | NUR ---
: DR. DUDLEY CALLED BACK WITH NEW ORDER.
--- NOTE | 2016-10-02 18:59 | NUR ---
AGITATION: HALDOL 5 MG. IM GIVEN X ONE PER DR. DUDLEY.
--- NOTE | 2016-10-02 20:00 | NUR ---
NOTES; SEEN PT IN BED, AWAKE,CONFUSED . ORIENTED TO NAME ONLY, REORIENTED PT TO PLACE,DATE, TIME, AND SURROUNDING. RESPIRATION EVEN AND UNLABORED. ABDOMEN SOFT, NONDISTENDED WITH ACTIVE BOWEL SOUNDS. SALINE LOCK ON THE LEFT FOREARM, COVERED WITH PAUL. DRESSING IS CLEAN,DRY,AND INTACT . IV IS PATENT. NO S/S OF INFILTRATION. EXCORIATION TO SHAHEEN AND RECTAL AREA. INCONTINENT OF URINE. PERIANAL REDNESS, INCONTINENT OF URINE. SHAHEEN CARE PROVIDED, Z-GUARD APPLIED , KEPT DRY . CALL LIGHT WITHIN REACH. BED LOCKED AND IN LOW POSITION,SIDE RAILS UP X3. BED ALARM ON, CALL LIGHT AND BEDSIDE TABLE WITHIN REACH. DIRECT OBSERVER AT BEDSIDE.
--- NOTE | 2016-10-02 20:21 | NUR ---
NOTES; SCHEDULED PO MEDICATION ADMINISTERED.
--- NOTE | 2016-10-02 22:15 | NUR ---
NOTES; INCONTINENT OF URINE. SHAHEEN CARE PROVIDED. NOTED REDNESS TO THE SHAHEEN AND RECTAL AREA. Z-GUARD BARRIER CREAM APPLIED.
[2016-10-03] VITALS: BP 122/60; PULSE 83; RESP 16; TEMP 97.4; O2SAT 96
--- NOTE | 2016-10-03 00:27 | NUR ---
NOTES; INCONTINENT OF URINE. SHAHEEN CARE PROVIDED. NOTED REDNESS TO THE SHAHEEN AND RECTAL AREA. Z-GUARD BARRIER CREAM APPLIED.
[2016-10-03] MEDS: IPRATROPIUM/ALBUTEROL SULFATE 3 ML AMPUL.NEB INH SCH ×4 (01:24→19:39)
--- NOTE | 2016-10-03 02:00 | NUR ---
NOTES; AWAKE, CONFUSED. TALKING TO SELF AND ATTEMPTING TO GET OUT OF BED. REORIENTED. INCONTINENT OF URINE, SHAHEEN CARE PROVIDED. EXCORIATION TO SHAHEEN AND RECTAL AREA NOTED. Z-GUARD SKIN BARRIER CREAM AOOLIED. REPOSITION. SAFETY MEASURES IN PROGRESS. DIRECT OBSERVER AT BEDSIDE AT ALL TIMES.
[2016-10-03 04:07] VITALS: BP 119/64; PULSE 62; RESP 18; TEMP 97.9; O2SAT 95
--- NOTE | 2016-10-03 04:30 | NUR ---
NOTES; APPEARED TO BE SLEEPING, EYES CLOSED. RESPIRATION EVEN AND NONLABORED. SAFETY MEASURES IN PROGRESS, DIRECT OBSERVER AT BEDSIDE.
--- NOTE | 2016-10-03 06:23 | NUR ---
NOTES; AWAKE, CONFUSED, REORIENTED. INCONTINENT OF URINE, TOTAL BED BATH GIVEN, LINEN CHANGED. SHAHEEN CARE PROVIDED. EXCORIATION TO SHAHEEN AND RECTAL AREA NOTED. Z-GUARD SKIN BARRIER CREAM APPLIED. REPOSITION. SAFETY MEASURES IN PROGRESS. DIRECT OBSERVER AT BEDSIDE AT ALL TIMES.
--- NOTE | 2016-10-03 08:00 | NUR ---
AM Initial Notes Pt aaox1, confused and talks to self. No complaints of pain or discomfort. No sob, difficulty breathing or distress noted. O2 via nasal cannula has been off. Excoriated pranav area and buttocks. Incontinent care done. Repositioned and kept comfortable. Bilateral scd in place. Fall and safety precautions enforced with ID band, bed alarm armed and close to nurse's station. Direct Observer inside room.
[2016-10-03 08:04] VITALS: BP 137/71; PULSE 97; RESP 18; TEMP 97.8; O2SAT 96
--- NOTE | 2016-10-03 08:30 | NUR ---
Social Service Note: SHANNAN re-faxed pt's information to [facility] for review. SHANNAN will follow up to see if the can accept pt today. Addendum: 10/03/16 at 1037 by Nicole Alvarez LCSW SHANNAN spoke to Marty at [facility] who stated that he would re-review pt's information and see if the can accommodate pt today. Marty will call SHANNAN back with an determination. Addendum: 10/03/16 at 1207 by Nicole Alvarez LCSW SHANNAN left a message for Marty at [facility] to check on status of referral. LSW will continue to follow up. Addendum: 10/03/16 at 1311 by Nicole Alvarez LCSW SHANNAN left another message for Marty at [facility]. SHANNAN also contacted [facility] to check on status of referral sent yesterday, Owen states that they do not have any available beds. SHANNAN has left a message for sales representative health insurance, Geeta ([phone]) to update her on the current progress for dc planning. Addendum: 10/03/16 at 1323 by Nicole Alvarez LCSW SHANNAN received call from Marty at [facility] who states that they have no available beds and to try back on Thursday. SHANNAN has placed another call to Geeta, sales representative health insurance, and left her a message to update and ask for assistance with dc planning. Addendum: 10/03/16 at 1359 by Nicole Alvarez LCSW SHANNAN spoke with Geeta from pt's insurance; Geeta states that she is having a huddle meeting soon and will bring up the case. Geeta also stated that if a accepting SNF could be found that a SELAM could be given. MEDICAL LAB DIRECTOR placed phone call to pt's dtr, Denys. MEDICAL LAB DIRECTOR spoke with pt's dtr about different plans of care SNF vs Psych and/or finding a SNF that provides psych services. [facility] in [place] offers a secured unit with SNF and psych services; pt's dtr is agreeable to pt's information being faxed over for review. [facility] has faxed pt's information to [facility] ([phone]). MEDICAL LAB DIRECTOR will follow to see if pt could be accepted. [facility] will keep pt's dtr and Geeta at insurance updated. Addendum: 10/03/16 at 1427 by Nicole Alvarez LCSW SHANNAN spoke to Kaitlin at [facility] who states that she will review the packet and present to their DON for a decision. Addendum: 10/03/16 at 1626 by Nicole Alvarez LCSW SHANNAN spoke with Kaitlin at [facility] who states that they are currently in their state survey; their DON has been unable to review packet. SHANNAN has also faxed pt's information to [facility] for review.
[2016-10-03] MEDS ORDERED: ARIPiprazole 2 MG TAB PO SCH (09:00)
[2016-10-03] MEDS: PANTOPRAZOLE SODIUM 40 MG TAB PO SCH (09:09)
[2016-10-03] MEDS: ENOXAPARIN SODIUM 40 MG/0.4 ML SYRINGE SUBCUT SCH (09:09)
[2016-10-03] MEDS: SERTRALINE HCL 50 MG TABLET PO SCH (09:10)
[2016-10-03] MEDS: CARVEDILOL 3.125 MG TABLET (COREG) PO SCH (09:10)
[2016-10-03] MEDS: FUROSEMIDE 40 MG TABLET PO SCH (09:10)
[2016-10-03] MEDS: ASPIRIN 325 MG TABLET (ECOTRIN) PO SCH (09:10)
[2016-10-03] MEDS: CARBIDOPA/LEVODOPA 25/250 MG TABLET PO SCH ×3 (09:11→16:59)
[2016-10-03] MEDS: POTASSIUM CHLORIDE 20 MEQ/PKT PACKET PO SCH (09:12)
--- NOTE | 2016-10-03 10:00 | NUR ---
Physical Therapy Pt ambulating with therapist inside room. Very weak and unsteady gait noted. No complaints of sob or difficulty breathing. Incontinent care done and returned back to bed. Kept comfortable. Direct observer inside room.
--- NOTE | 2016-10-03 11:00 | NUR ---
Bed Bath Pt given bed bath. No complaints of pain or discomfort. No distress noted. Excoriations to pranav area and buttocks area applied with Z-guard skin barrier cream. Kept comfortable.
--- NOTE | 2016-10-03 12:00 | NUR ---
Lunch Pt eating lunch and being fed by not eating much. Encouraged to eat more. No complaints of pain, discomfort, sob or difficulty breathing. No distress noted. Kept comfortable. Will continue to monitor.
[2016-10-03 12:05] VITALS: BP 124/72; PULSE 86; RESP 18; TEMP 97.1; O2SAT 98
--- NOTE | 2016-10-03 12:07 | NUR ---
JIM SCALE EVALUATION: Patient evaluated for a low Jim score of 16. Patient was awake, alert, oriented and received in a Linda bed with a mattress. Patient is unable to turn in bed independently. Skin is fair (-); Buttocks have erythema from IAD. Recommend encourage and assist patient as needed with repositioning side to side only every 2 hours with pillow support, and off-load pressure areas with pillows for pressure re-distribution. Elevate, off-load and float bilateral heels with pillows. Use moisture barrier cream on buttocks and other moisture susceptible areas QID and as needed for soiling. Perform skin care and monitor skin integrity Q shift.
--- NOTE | 2016-10-03 13:00 | NUR ---
PHYSICAL THERAPY CO-SIGN The Physical Therapy Progress Notes documented by Call Center Director have been reviewed. Reviewed/Co-Signed by: Yuli Hauser PT Documentation Done by: Johnathon Morrison PTA Weekly summary - patient is doing well with PT in terms of her functional mobility and gait activities and may benefit from more rehab services. Plan: continue as per plan of care. I concur with the documentation of this PASTING INSPECTOR. Addendum: 10/03/16 at 1527 by Yuli Hauser PT Amended: Links added.
--- NOTE | 2016-10-03 14:00 | NUR ---
Rounds Pt asleep. No significant changes noted. Will continue to monitor. Direct observer inside room.
[2016-10-03 14:18] LABS: CALCIUM 9.8 mg/dL (8.4-11.0); CREATININE 2.17 mg/dL (0.55-1.30); POTASSIUM 4.3 mmol/L (3.5-5.1)
--- NOTE | 2016-10-03 14:35 | NUR ---
Nutrition F/U Admitting Diagnosis Acute respiratory failure, acute PA, acute CHF, acute APOLINAR Past Medical History Parkinson's disease, bipolar disorder, DM, HTN Pertinent Medications lasix, KCl packet, protonix, zofran Current Diet Order Regular, mechanical soft, CCHO low carb-45 (x5 days) Height (Feet) 5 feet Height (Inches) 4.00 inches Weight (Pounds) 163 pounds (admission) 09/30/16: 151 lb, 69 kg (bedscale) Weight (Calculated Kilograms) 73.119642 kilograms Patient Weight 73.936 kg Body Mass Index 27.98 kg/m2 (normal, geriatric status) Switchback/Adjusted Body Weight IBW: 120 lb/54.5 kg; 136% IBW; Adj BW (obesity): 131 lb/59 kg Estimated Needs 4750-7548 kcal/day (BEE x 1.2-1.5 for anabolism) Grams of Protein per Day 44-65 gm/day (0.8-1.2 gm/kg IBW for APOLINAR and anabolism) Fluid Intake Goal Per MD (CHF) Pertinent Labs 09/30/16: BG 167 H, CRE 1.81 H, eGFR 30 L, BUN 35 H 09/27/16: ALB 2.7 L 09/26/16: BNP 851 H 09/24/16: Troponin 2.924 H Other Subjective Data Pt seen resting in bed at time of RD visit w/ DIRECTOR OF DESIGN/sitter at bedside. Per DIRECTOR OF DESIGN, pt ate about 50% at breakfast and refused to eat much of lunch. She also denies that pt had any BM today. Per MD orders, D/C to geropsych unit. Per DIRECTOR OF DESIGN, awaiting facility placement. Per EMR, PO Intakes: 34% average x5 meals. Abd is soft and non-distended w/ active bowel sounds. Last BM x4 10/02/16. Jim scale: 16; no skin issues noted. Pt is not yet meeting optimal nutritional needs. Pt is not appropriate for nutrition education. Problem, Etiology, Signs/Symptoms Malnutrition related to illness, decreased appetite, and impaired cognitive ability as evidenced by reported 27% wt loss x 1 year, and estimated PO intake less than estimated nutritional requirements. Expected Outcomes or Goals * Monitor tolerance of diet, appetite, and PO intakes with goal of pt meeting at least 75% of estimated nutritional needs, labs trending WNL, normal GI function, skin integrity/weight maintenance Dietitian Recommendations * Recommend continuing regular, mechanical soft, CCHO low carb-45 diet per MD order * Recommend Boost Glucose Control BID (additional 500 kcal and 28 gm protein/day) * Recommend providing assistance w/ meals to encourage safe PO intakes Follow Up High Risk: F/U in 2-3 days
[2016-10-03 16:15] VITALS: BP 121/64; PULSE 85; RESP 18; TEMP 97.7; O2SAT 95
--- NOTE | 2016-10-03 17:00 | NUR ---
Rounds Pt asleep but easily awakened. No significant changes noted. Incontinent care done. Repositioned and kept comfortable. Direct Observer inside room.
--- NOTE | 2016-10-03 17:08 | NUR ---
DISCHARGE PLANNING Spoke with Theresa at [facility] patient accepted and assigned to room 112A RN to report , bed available anytime. KIP Lombardo updating patient daughter Denys. Theresa at [facility] will return call to confirm bed assignment close to nurses station per daughter request and was made aware of DO. Spoke with Theresa at [facility] patient now assigned to room 203A which is close to nurses station. Contracted ambulance [facility] [phone] auth #[id number] BLS transport on will call.
--- NOTE | 2016-10-03 17:19 | NUR ---
DC planning: S/W Denys about placement at [facility]--Theresa at [facility] was made aware that pt was on DO here and has tendancy to get OOB at night and needs to be close to nurse station. Theresa changed room to 203A. Daughter Denys made aware there will be no D.O. but her mom will be close to nurse station.Denys was worried about her mom falling and I explained that even at [facility], pt will not be on 1:1 staffing ratio and encouraged her to visit her mom halina to help her transition at the new [facility]--She said she will do that.DAYSI LEDEZMA Addendum: 10/03/16 at 1734 by Munira Parra RN DC Planning: Requested charge nurse Eri to assist with getting pt ready for dc to [facility] so as to avoid later transfer time. NEMO called and can do 8pm meat pickler per Li-scheduled the meat pickler. US Gamez will f/u Eri also. Dr. Dawson made aware of daughter's request to [facility]Dr. Dawson will not follow pt at [facility]. Theresa at [facility] made aware--DAYSI LEDEZMA
--- NOTE | 2016-10-03 17:28 | NUR ---
CALLED [facility], SPOKE TO MAURISIO AND CONFIRMED 203B THE ASSIGNED BED FOR THE PT. [facility] BEEF RIBBER TIME IS 1999 PER OUR CM DIRECTOR DESHAUN.
--- NOTE | 2016-10-03 18:45 | NUR ---
Closing Notes Pt awake, confused but calm and cooperative. No complaints of pain or discomfort. No sob, difficulty breathing or distress noted. Incontinent care done. Repositioned and kept comfortable. Patient will be discharged tonight to [facility] via [facility]ulance @ 1999. Will endorse care to incoming nurse.
--- NOTE | 2016-10-03 19:10 | NUR ---
[facility] Report was called to [facility] @ and spoke with DARIEN Leblanc. Patient will be going to room 203-A.
[2016-10-03 19:12] VITALS: BP 110/59; PULSE 90; RESP 17; TEMP 98.6; O2SAT 95
--- NOTE | 2016-10-03 20:38 | NUR ---
Discharge Note Patient is in stable condition. IV and ID band removed. Report given to [facility] ambulance. No signs of distress noted. VS are stable. Transition of care packet given to [facility] ambulance staff.
--- NOTE | 2016-10-06 10:39 | NUR ---
Case mt note: Rec'd call from KIP Flores Sat. October 04 am indicating she got a call from our warehouse director asking about pt's dc to [facility], and also that pt's daughter Denys was very upset that pt didn't have 24 hr sitter at [facility] and that she was promised a sitter. I told Sandra that I explained several times to Denys that SNF doesn't provide 24 hr sitter/DO (Denys aware this is expense to pt because she had indicated to me the last facility her mom was at they tried to make her pay for 24 hr sitter because the facility doesn't pay for that), and that's why Erin called [facility],she both spoke with Theresa who was made aware pt had been on DO here and need close observation because pt tries to get out of bed/fall risk, and Theresa therefore changed the room assignment from 112 to 203, as she said room 203 is next to nurses' station, to which I again explained this to Denys. I told Sandra I had explained need for SNF instead of to Denys, and so had our social work therapist Nicole, as the [facility] facilities won't take pt because she is too high level of care due to not being independently ambulatory, and requires more physical therapy, and that [facility] is a snf with locked unit but not a geropsych. Sandra was going to explain this to our warehouse director. I also received message from Theresa at [facility] Thursday, indicating the daughter Denys was saying her mom was supposed to go to [facility] and asking about geropsych order and daughter mentioned place in [place] willing to take pt. I called Theresa back, explained we initially had geropsych order, but was changed to snf because no geropsych would take her because she was too high level of care, required physical therapy. We discussed that pt had been started back on her psychiatric medications that Dr. Trevino had ordered Thursday (October 01), and that I had informed Dr. Dawson that daughter Denys was asking for the Ativan to be re-ordered. Per Theresa at [facility], the pt was on Ativan every 6 hrs. Theresa said nestor Mcfarlane was saying I had promised her mom would have 24 hr sitter/DO at [facility], which I explained to Theresa that I did not promise this to daughter, as I know snfs cannot provide 24hr sitter unless family pays for it and that's why Theresa was made aware pt was on DO here at [facility], but wouldn't have that at [facility], and that's why pt bed assignment was changed to 203 next to nurse station. Theresa told me she offered to put SPECIAL POLICE OFFICER 1 hr out of 8 hr in with the pt, but it would be different vessel captain each time, and that daughter Denys was not agreeable to that because it would be different person each time. Theresa told me that she will see what she can do to take care of the patient. Theresa messaged me later to say dtr demanding 24hr sitter, and said she asked yesterday if pt needs sitter and was told no (both Erin and I explained pt had been on 24hr DO here, and that's why Theresa changed pt's room assignment from 112 to 203 because pt needed close observation and had been 24 hr DO here), and Theresa messaged she will see what she can do with her staffing as she had multiple call-offs by staff that day. I later rec'd a call from Paris Jimenez around 2pm, saying the daughter Denys called her and said I had promised her a 24 hr sitter, and pt should've gone to [facility] and that I completely lied to her to get the patient out of the hospital and threatening with dial painter, and that Denys wanted a call back from me or administration. I called Denys back at ph# given to me by Paris, , identified myself and Denys said she was taking notes and had me on speaker phone, going to record conversation and a witness with her because she has a tendency to get emotional and forget things and went on to accuse me of lying to her and that I promised her that her mom would have 24 hr sitter/direct observer at [facility], and her mom should've gone to [facility], and that I never told [facility] her mom needed a sitter and fall risk, and how she was going to nilda me and I'm in big trouble-I made attempts to comment, and Denys repeatedly interrupting me until I asked her if she would let me finish my sentence. I explained that I had indeed explained several times Thursday evening to her that DO/24 hr sitter would not be provided as that is an expense usually the family has to cover because snfs don't cover that expense as she had mentioned to me that the last facility she was at wanted her to pay for the 24 hr sitter cost. Denys repeatedly said I lied to her and had promised her a 24 hr sitter, insisted there was no order for snf because my supervisor force adjustment Valencia had told her there was only order for [facility] and that Dr. Campos was going to send her to [facility], and that she just wanted to see if I had the decency to call her back and apologize to her and admit I was wrong. She said she was going to contact her antique furniture restorer, said she was done talking to me and hung up before I could offer her to file a grievance if she desired to do so. I contacted Dr. Dawson and explained that dtr Denys was upset pt didn't have 24 hr sitter/DO observer at [facility] and threatened to nilda, he said this is a safe and appropriate discharge to SNF.Toshia Fernando, CNO network services project manager, also made aware of daughter Denys's complaints. Theresa from [facility] let me know later also that dtfransisco Mcfarlane requested Dr. Tavarez to transfer pt back to [facility] but there is no medical need, and will proceed with attempts for placement at [facility] with Dr. Atkinson indicates she was going to have her nurses rotate through an hour at a time with pt to satisfy jovita Mcfarlane's request. DAYSI RN
== END 2016-10-03 20:50 | DRG 871 ==
LOC: SED 01:21 → SIC 03:49 → STU 09-26 12:05 → SMU 10-01 19:48
PROVIDERS: ADMIT Internal Medicine Hospice and Palliative Medicine; ATTEND Internal Medicine Hospice and Palliative Medicine
PROC: 5A1945Z Respiratory Ventilation, 24-96 Consecutive Hours (ICD-10-PCS; principal; 2016-09-23)
PROC: 0BH17EZ Insertion of Endotracheal Airway into Trachea, Via Natural or Artificial Opening (ICD-10-PCS; 2016-09-23)
DX: A41.9 Sepsis, unspecified organism (principal); J69.0 Pneumonitis due to inhalation of food and vomit; J96.00 Acute respiratory failure, unspecified whether with hypoxia or hypercapnia; I21.3 ST elevation (STEMI) myocardial infarction of unspecified site; I50.31 Acute diastolic (congestive) heart failure; N17.9 Acute kidney failure, unspecified; E87.2 Acidosis; F31.60 Bipolar disorder, current episode mixed, unspecified; J44.0 Chronic obstructive pulmonary disease with (acute) lower respiratory infection; N39.0 Urinary tract infection, site not specified; I11.0 Hypertensive heart disease with heart failure; F22 Delusional disorders; E11.65 Type 2 diabetes mellitus with hyperglycemia; G20 Parkinson's disease; G47.33 Obstructive sleep apnea (adult) (pediatric); Z82.0 Family history of epilepsy and other diseases of the nervous system; Z79.84 Long term (current) use of oral hypoglycemic drugs; Z82.3 Family history of stroke; Z82.5 Family history of asthma and other chronic lower respiratory diseases; Z90.49 Acquired absence of other specified parts of digestive tract; I25.2 Old myocardial infarction; Z90.710 Acquired absence of both cervix and uterus; Z88.8 Allergy status to other drugs, medicaments and biological substances
CPT/HCPCS: 36415; 36600; 71010; 80048; 80053; 80061; 80307; 81000-TC; 82550-TC; 82803-TC; 83605; 83690-TC; 83735-TC; 83880; 84100-TC; 84443-TC; 84484; 85007; 85025; 85027; 85610-TC; 85730-TC; 87040-TC; 87070-TC; 87081; 87205-TC; 93005; 93306; 94002; 94003; 94640; 94760; 96374; 96375; 97110-GP; 97116-GP; 97530-GP; 99291; C9113; J0456; J0696; J1630; J1644; J1650; J1940; J2060; J2270; J2405; J2543; J3480; J3490; J7030; J7040; J7050

== ENCOUNTER 2016-10-06 21:22 | Inpatient (IN) | payer OTHER ==
[~2016-10-06] VITALS: Ht 167.6 cm; Wt 89.8 kg
[~2016-10-06 21:22] MED LIST: ARIP2TAB9 PO; ATOR40TA68 PO; BACL10TA PO; COR12.5 PO; ERGO8000; GLIM1TAB PO; NOR10 PO; SERT50TA PO; VALS80TA2 PO; VENL75TA4 PO
--- NOTE | 2016-10-06 21:23 | NUR ---
Patient to ER bed 05 to gown for evaluation. Side rails up. Report given to gilmar.
--- NOTE | 2016-10-06 21:30 | NUR ---
Patient sent to ER from [facility] for abnormal labs WBC 39. Patoent has long chronic medical history, tracks wtih eyes, non-verbal. No signs of acute distress.
[2016-10-06 21:37] VITALS: BP 109/54; PULSE 82; RESP 16; TEMP 98.4; O2SAT 96
[2016-10-06] MEDS ORDERED: ALBU2.5V7 INH ×2 (21:58→21:59)
[2016-10-06] MEDS ORDERED: ASPI325T2 PO (21:59)
[2016-10-06] MEDS ORDERED: LORA-258 PO (22:00)
--- NOTE | 2016-10-06 22:09 | NUR ---
ER MD Boone at bedside for evaluation
[2016-10-06] MEDS ORDERED: SENN8.6T19 PO (22:10)
[2016-10-06] MEDS ORDERED: CARV6.2554 PO (22:14)
[2016-10-06] MEDS ORDERED: CARB25TA3 PO (22:15)
--- NOTE | 2016-10-06 22:15 | NUR ---
# 20 gauge angiocath placed to right ac. Use of asceptic technique. Opsite placed over site. Blood return noted. Blood for lab drawn from site including cultures and lactic acid. Flushed with 10 cc of normal saline. No evidence of infiltration noted. Patient tolerated well.
[2016-10-06] MEDS ORDERED: DOCU-144 PO (22:16)
[2016-10-06] MEDS ORDERED: DULR10 RC (22:17)
[2016-10-06] MEDS ORDERED: FURO40TA5 PO (22:18)
[2016-10-06] MEDS ORDERED: POTA20TA83 PO (22:19)
[2016-10-06] MEDS ORDERED: PRO40 PO (22:20)
[2016-10-06] MEDS ORDERED: ONDA4TAB5 PO (22:20)
[2016-10-06] MEDS ORDERED: MAGN400O4 PO (22:21)
[2016-10-06] MEDS ORDERED: LOVI40 SQ (22:24)
[2016-10-06] MEDS ORDERED: NACL 0.9% 1,000 ML IV ONE (22:27)
--- NOTE | 2016-10-06 22:40 | NUR ---
Medication reconciliation completed with information provided by - list from facility. Any prior medication reconciliation on file was reviewed and corrected.
--- NOTE | 2016-10-06 22:49 | NUR ---
Note vjankur in EDM - 10/06/16 at 2249 by BEATRIZ # 20 gauge angiocath placed to right ac. Use of asceptic technique. Opsite placed over site. Blood return noted. Blood for lab drawn from site including cultures and lactic acid. Flushed with 10 cc of normal saline. No evidence of infiltration noted. Patient tolerated well.
--- NOTE | 2016-10-06 23:00 | NUR ---
# 16 FR Snider catheter with use of sterile technique. Immediate return of 1000 cc dark yellow urine noted. Bedside drainage bag placed below level of bladder. Urine sample collected and sent to lab. Pt tolerated procedure well. Patient unable to toilet self.
[2016-10-06 23:07] LABS: HEMATOCRIT 40.1 % (36-48); HEMOGLOBIN 13.2 g/dL (12.0-16.0); MEAN CORPUSCULAR HEMOGLOBIN 29 pg (27-31); MEAN CORPUSCULAR HGB CONC 33 % (32-36); MEAN CORPUSCULAR VOLUME 89 fL (79.0-98.0); PLATELET COUNT (AUTO) 518 K/uL (130-430); RED BLOOD CELL COUNT(AUTO) 4.49 MIL/uL (4.2-6.2)
[2016-10-06 23:08] LABS: CALCIUM 10.1 mg/dL (8.4-11.0); CREATININE 3.46 mg/dL (0.55-1.30)
[2016-10-06 23:13] LABS: ALBUMIN 2.7 g/dL (3.4-4.8); TOTAL BILIRUBIN 0.3 mg/dL (0.0-1.0); TOTAL PROTEIN, SERUM 7.7 g/dL (6.4-8.3)
[2016-10-06 23:19] LABS: INR 1.1 (0.8-1.2); PROTHROMBIN TIME 11.4 SECS (9.5-12.5)
[2016-10-06 23:33] LABS: WHITE BLOOD COUNT (AUTO) 36.9 K/uL (4.8-10.8)
[2016-10-06 23:41] LABS: BILIRUBIN,URINE NEGATIVE (NEGATIVE); BLOOD, URINE 1+ (NEGATIVE); CLARITY/URINE HAZY (CLEAR); COLOR,URINE YELLOW (YELLOW); GLUCOSE,URINE NEGATIVE (NEGATIVE); KETONES,URINE NEGATIVE (NEGATIVE); LEUKOCYTE ESTERASE ,URINE TRACE (NEGATIVE); NITRITE, URINE NEGATIVE (NEGATIVE); PROTEIN URINE NEGATIVE (NEGATIVE); UROBILINOGEN,URINE 0.2 (0.2-1.0)
--- NOTE | 2016-10-06 23:45 | NUR ---
Severe SEPSIS reisk. ER MD Boone aware of VS & lab results. Awaiting ABX & fluid orders.
[2016-10-06 23:52] LABS: BAND % (MANUAL) 2 % (0-6); BASOPHILS % (MANUAL) 0 % (0-2); EOSINOPHILS % (MANUAL) 0 % (0-7); LYMPHOCYTES % (MANUAL) 8 % (20-46); MONOCYTES % (MANUAL) 6 % (0-11)
[2016-10-06] MEDS ORDERED: D5NS 1,000 ML IV SCH (23:55)
[2016-10-06 23:58] LABS: BACTERIA,URINE FEW /HPF (None Seen); RBC,URINE 0-3 /HPF (0-3)
--- NOTE | 2016-10-06 23:58 | NUR ---
Patient will be admitted to care of DR DUDLEY. Admitted to TELE IN unit. Will go to room 133B. Belongings list completed. Summary report printed. Report given to RN.
[2016-10-06 23:59] LABS: MUCUS,URINE None Seen /LPF (None Seen)
[2016-10-07] VITALS (8 sets, daily range): BP systolic 101–140; BP diastolic 45–62; PULSE 78–96; RESP 19–20; TEMP 97.7–99.8; O2SAT 93–99
[2016-10-07] LABS: YEAST,URINE Many /HPF (None Seen)
--- NOTE | 2016-10-07 00:04 | NUR ---
Transfer to via ACLS protocol. Licensed nurse present. IV present no signs or symptoms of infiltration.
--- NOTE | 2016-10-07 00:14 | NUR ---
ADMISSION NOTE Received patient from ER via gurney. Patient admitted with diagnosis of Severe sepsis. Patient is awake, alert, oriented X 1. Patient oriented to hospital room, call light, toileting, pain management and safety-teach back done. Patient informed that Beth will be her nurse and that their room number is 133b. Personal belongings checked and Belongings List documented. Call light within reach.
--- NOTE | 2016-10-07 00:15 | NUR ---
OPENING NOTE Late entry due to pt. care. Pt. received from ER via stretcher/gurney. Report received from AN nurse, Alessia Jang RN. Pt. is awake and resting quietly in bed with no s/s of acute distress. Due IVF infusing as ordered to right a/c. Plan of care discussed but pt. is confued and I am unable to assess response to teaching. Safety measures in place. Bed alarm on. Call light placed to right hand. Sitter present at bedside. Will continue to monitor.
--- NOTE | 2016-10-07 00:26 | NUR ---
Consultation Paged Reason for consultation: Possible Sepsis, Elevated BUN Was consult called: Yes Person who was notified: Nia Consulting Physician: Yonatan Munoz Director Financial Planning Specialty: Nephrology Director Financial Planning
[2016-10-07] MEDS ORDERED: PIPERACILLIN/TAZO 3.375/DEX-IS 50 ML IV ONE (00:30)
--- NOTE | 2016-10-07 00:54 | NUR ---
LAB AT BEDSIDE FOR 2ND LACTIC ACID Janae, accounts payable payroll coordinator at bedside.
[2016-10-07] MEDS ORDERED: PIPERACILLIN/TAZOBACTAM 3.375 GM/VIAL (ZOSYN) IV ONE (00:57)
--- NOTE | 2016-10-07 01:03 | NUR ---
DUE ZOSYN Late entry due to pt. care. Due Zosyn infusing as ordered to right a/c. Pt. is resting quietly in bed with eyes closed; no s/s of acute distress, pain or discomfort at this time. Safety measures in place. bed alarm on. Sitter present at bedside. Will continue to monitor.
--- NOTE | 2016-10-07 02:46 | NUR ---
TELE LEADS Tele leads fixed. IVF infusing as ordered. Safety measures in place. Bed alarm on. Will continue to monitor.
--- NOTE | 2016-10-07 04:12 | NUR ---
ROUNDS Pt. resting in bed with eyes closed; pt. appears to be talking in her sleep. Respirations are even and unlabored with visible chest rise and fall. No s/s of acute distress. Safety measures in place. Call light to right hand. Bed alarm on. Sitter present in room. Will continue to monitor.
--- NOTE | 2016-10-07 05:13 | NUR ---
SPOKE TO DAUGHTER Spoke to pt.'s daughter, Ella Wade ([phone]) who asked how her mother was doing. I answered her questions to the best of my ability. She also stated pt.'s flu vaccine status is current. Will update admission data.
[2016-10-07] MEDS ORDERED: ONDANSETRON 4 MG ODT TAB PO PRN (05:15)
[2016-10-07] MEDS ORDERED: LORazepam 1 MG TABLET PO PRN (05:15)
[2016-10-07] MEDS ORDERED: BISACODYL 10 MG/SUPPOSITORY RC PRN (05:15)
[2016-10-07] MEDS ORDERED: MILK OF MAGNESIA 30 ML UDC PO PRN (05:15)
[2016-10-07] MEDS ORDERED: IPRATROPIUM BROM 0.5 MG/2.5 ML VIAL.NEB (ATROVENT) INH PRN (05:30)
[2016-10-07] MEDS ORDERED: ALBUTEROL SULFATE 0.083% 2.5 MG/3 ML VIAL.NEB INH PRN (05:30)
--- NOTE | 2016-10-07 05:31 | NUR ---
Consultations Paged Reason for consultation: Respiratory Failure Was consult called: Yes Person who was notified: Janeth Consulting Physician: Fausto Gunn Collection Manager Specialty: Pulmonary Collection Manager Reason for consultation: Bipolar Was consult called: Yes Person who was notified: Nia Consulting Physician: Saeed Borrego Collection Manager Specialty: Psychiatry Collection Manager
[2016-10-07] MEDS: D5NS 1,000 ML IV SCH ×3 (05:42→21:01)
--- NOTE | 2016-10-07 05:42 | NUR ---
IVFLUIDS Rate adjusted to IVF as ordered. IVF infusing as ordered to right a/c. Pt. is resting with no s/s of acute distress. Safety measures in place. Bed alarm on. Will continue to monitor.
--- NOTE | 2016-10-07 06:48 | NUR ---
CLOSING NOTES All needs met throughout shift. Pt. is resting quietly in bed with no s/s of acute distress. Safety measures in place. Bed alarm on. Sitter present in room. Will endorse care to oncoming day shift nurse and to f/u if MD wants accucheck order.
--- NOTE | 2016-10-07 08:00 | NUR ---
AM Initial Notes Pt aaox1 with confusion and talking to self. No complaints of pain or discomfort. No sob, difficulty breathing or distress noted. chauffeur motorbus in place. Non productive cough noted. IV to left AC with IV fluid infusing. No infiltration noted. Pt has a grover catheter and in place. Excoriations noted to buttocks. Repositioned and kept comfortable. Safety and fall precautions enforced with ID band in place, bed alarm armed and close to nurse's station. Will monitor.
[2016-10-07] MEDS: ALBUTEROL SULFATE 0.083% 2.5 MG/3 ML VIAL.NEB INH SCH ×5 (08:01→23:00)
[2016-10-07] MEDS: IPRATROPIUM BROM 0.5 MG/2.5 ML VIAL.NEB (ATROVENT) INH SCH ×5 (08:02→23:00)
[2016-10-07 08:30] LABS: ABG TOTAL HEMOGLOBIN 12.4 G/dL (12.0-18.0); BLOOD GAS BASE EXCESS 0.6 mmol/L (-3.0-3.0); BLOOD GAS COHb% 0.3 % (0.5-1.5); BLOOD GAS HHB 6.2 % (0.0-6.0); BLOOD GAS PH 7.429 (7.350-7.450); BLOOD O2Hb% 93.3 % (94.0-97.0)
[2016-10-07] MEDS ORDERED: SERTRALINE HCL 50 MG TABLET PO SCH (09:00)
[2016-10-07] MEDS ORDERED: ARIPiprazole 2 MG TAB PO SCH (09:00)
--- NOTE | 2016-10-07 09:12 | NUR ---
Nutrition Update Jim Scale 16 noted. Pt admitted for sepsis. Diet: mechanical soft BMI: 32 kg/m2 RD to follow per nutrition care standards.
--- NOTE | 2016-10-07 10:00 | NUR ---
Rounds Pt asleep. No signs of facial grimacing for pain or discomfort. No distress noted. Repositioned and kept comfortable. Will monitor.
[2016-10-07] MEDS: ASPIRIN 325 MG TABLET PO SCH (10:48)
[2016-10-07] MEDS: DOCUSATE SODIUM 100 MG CAPSULE PO SCH ×2 (10:48→21:00)
[2016-10-07] MEDS: PANTOPRAZOLE SODIUM 40 MG TAB PO SCH (10:49)
[2016-10-07] MEDS: CARVEDILOL 6.25 MG TABLET (COREG) PO SCH ×2 (10:49→21:00)
[2016-10-07] MEDS: POTASSIUM CHLORIDE 20 MEQ TAB.PRT.SR PO SCH (10:56)
--- NOTE | 2016-10-07 11:00 | NUR ---
Physical Therapy Pt ambulating with therapists inside room to the door. Weakness and instability of gait noted. Placed patient back to bed and kept comfortable.
--- NOTE | 2016-10-07 11:30 | NUR ---
Dr. Eunice SEVILLA doing rounds and inside room assessing patient.
--- NOTE | 2016-10-07 11:53 | NUR ---
ID CONSULT Spoke with Dr. Ruvalcaba directly regarding consultation for reason: sepsis. Dr. Ruvalcaba is currently making rounds on the floor.
--- NOTE | 2016-10-07 12:05 | NUR ---
CARDIOLOGY CONSULT Spoke with Janina regarding request for consultation with Dr. Carmona ([phone]) for reason: CHF.
--- NOTE | 2016-10-07 12:30 | NUR ---
Refused lunch Pt asleep but easily awakened by shaking. Pt refused to eat lunch. States "don't force me if i don't want to eat." Encouraged to eat. Pt had a few bites but refused to eat more. Repositioned and kept comfortable. Will monitor.
[2016-10-07] MEDS: VANCOMYCIN HCL 1,250 MG in NS 250 ML IV SCH ×2 (13:00→17:54)
[2016-10-07] MEDS ORDERED: VANCOMYCIN HCL 1,250 MG in NS 250 ML IV SCH (13:00)
--- NOTE | 2016-10-07 13:49 | NUR ---
MEDICATION: Vancomycin not available. Spoke with Gigi in pharmacy.
[2016-10-07] MEDS: PIPERACILLIN/TAZO 2.25G/DEX-IS 50 ML IV SCH ×2 (14:07→21:01)
--- NOTE | 2016-10-07 14:30 | NUR ---
Rounds Pt awake with eyes closed. Talks to self. No complaints of pain or discomfort. No distress noted. Repositioned and kept clean and dry. Will continue to monito
--- NOTE | 2016-10-07 16:30 | NUR ---
Rounds Pt awake but with eyes closed and talking to self. Pt confused and mumbling at times. No complaints of pain or discomfort. No sib, difficulty breathing or distress noted. Tremors from Parkinson's noted. Repositioned and kept comfortable. Will continue to monitor.
--- NOTE | 2016-10-07 18:30 | NUR ---
Closing Notes Pt awake but with eyes closed and mumbling. No complaints of pain or discomfort. No distress noted. Encouraged to eat dinner but states she is full. Cleaned and repositioned. Will endorse care to incoming nurse.
--- NOTE | 2016-10-07 18:35 | NUR ---
Dr. Mathew SEVILLA inside room assessing patient.
[2016-10-07] MEDS ORDERED: NACL 0.9% 1,000 ML IV ONE (19:00)
--- NOTE | 2016-10-07 19:00 | NUR ---
Dr. Ulisses SEVILLA inside room assessing patient.
--- NOTE | 2016-10-07 20:00 | NUR ---
PM Shift Assessment Received patient sitting up in bed, no acute distress noted, visitor at the bedside. RT at bedside for breathing treatment, patient tolerating well. Assessment complete, no complain of pain at this time. IV noted to right AC, IV fluids infusing well, no redness or swelling noted to IV site. Snider catheter noted, secured in place, draining cloudy yellow urine with some sediment to gravity. SCD's noted to BLE. Education provided to call for assistance and not to get out of bed without calling. Patient is confused, call light is within reach, all fall and safety precautions in place, will continue to monitor closely for change in patient status.
[2016-10-07] MEDS: LACTOBACILLUS RHAMNOSUS GG 1 CAP CAPSULE PO SCH (21:00)
--- NOTE | 2016-10-07 22:14 | NUR ---
RN Rounds Patient is resting quietly in bed, no acute distress noted. Scheduled medications and IV bolus was administered per MD order. IV fluids infusing well. Patient repositioned with pillow support to prevent further skin breakdown. Call light is within reach, all fall and safety precautions in place, will continue to monitor closely.
--- NOTE | 2016-10-08 00:22 | NUR ---
RN Rounds Patient is sleeping, but easily arousable, no acute distress noted. Patient was repositioned with pillow support to prevent further skin breakdown and made comfortable in bed. Call light is within reach with soft music for comfort. All fall and safety precautions in place, will continue to monitor closely.
[2016-10-08 01:03] VITALS: BP 115/54; PULSE 67; RESP 19; TEMP 98; O2SAT 96
--- NOTE | 2016-10-08 02:19 | NUR ---
RN Rounds Patient is sleeping but easily arousable, no acute distress noted. No non-verbal signs of pain noted at this time. Call light is within reach, all fall and safety precautions in place, will continue to monitor closely.
[2016-10-08] MEDS: ALBUTEROL SULFATE 0.083% 2.5 MG/3 ML VIAL.NEB INH SCH ×6 (03:00→23:00)
[2016-10-08] MEDS: IPRATROPIUM BROM 0.5 MG/2.5 ML VIAL.NEB (ATROVENT) INH SCH ×6 (03:00→23:00)
[2016-10-08] MEDS: D5NS 1,000 ML IV SCH ×3 (03:25→16:18)
[2016-10-08 04:00] VITALS: BP 140/60; PULSE 83; RESP 20; TEMP 97.5; O2SAT 93
--- NOTE | 2016-10-08 04:26 | NUR ---
RN Rounds Patient is resting quietly in bed, no acute distress noted. IV fluids infusing well, Snider draining well to gravity. Patient was repositioned with pillow support and made comfortable in bed. Reminded to call for assistance if she needs to get out of bed. Call light is within reach, all fall and safety precautions in place, will continue to monitor closely.
[2016-10-08] MEDS: PIPERACILLIN/TAZO 2.25G/DEX-IS 50 ML IV SCH ×3 (05:11→22:04)
[2016-10-08 07:08] LABS: HEMATOCRIT 34.1 % (36-48); HEMOGLOBIN 11.4 g/dL (12.0-16.0); MEAN CORPUSCULAR HEMOGLOBIN 30 pg (27-31); MEAN CORPUSCULAR HGB CONC 34 % (32-36); MEAN CORPUSCULAR VOLUME 91 fL (79.0-98.0); PLATELET COUNT (AUTO) 413 K/uL (130-430); RED BLOOD CELL COUNT(AUTO) 3.77 MIL/uL (4.2-6.2); RED CELL DISTRIBUTION WIDTH 13.3 % (9.0-15.0); WHITE BLOOD COUNT (AUTO) 23.4 K/uL (4.8-10.8)
--- NOTE | 2016-10-08 07:10 | NUR ---
Closing Notes Patient is resting quietly in bed, no acute distress noted. Patient is stable, all needs met throughout shift. SBAR report was endorsed to AM nurse at bedside.
[2016-10-08 07:27] LABS: CALCIUM 8.6 mg/dL (8.4-11.0); CREATININE 1.25 mg/dL (0.55-1.30); POTASSIUM 3.5 mmol/L (3.5-5.1); TOTAL BILIRUBIN 0.3 mg/dL (0.0-1.0); TOTAL PROTEIN, SERUM 6.2 g/dL (6.4-8.3)
--- NOTE | 2016-10-08 08:00 | NUR ---
AM ROUNDS Patient received, alert awake and oriented x1. Reoriented patient to time and location. Patient stated "okay". Respirations even and unlabored. monitor technician in place, rhythm noted. IV site patent and intact. Abdomen soft and rounded, patient tolerated breakfast well. Snider draining to gravity, urine output noted. Patient on air mattress and SCD's applied bilaterally to lower extremities. Safety and fall precautions in place, call light within reach, side rails upx3, bed alarm on. Will continue to monitor. Plan of care unable to be discussed due to patients mental status, no family at bedside. Addendum: 10/08/16 at 1014 by Kathy Giron RN Late entry due to patient care.
[2016-10-08 08:31] VITALS: BP 124/55; PULSE 77; RESP 18; TEMP 97.6; O2SAT 95
--- NOTE | 2016-10-08 10:11 | NUR ---
ROUNDS Patient repositioned at this time. Oral care and skin care provided. Reoriented patient to time and location. No acute distress noted. Will continue to monitor. Safety and fall precautions in place, side rails upx3, call light within reach, bed alarm on.
[2016-10-08] MEDS: DOCUSATE SODIUM 100 MG CAPSULE PO SCH ×2 (10:24→22:04)
[2016-10-08] MEDS: ASPIRIN 325 MG TABLET PO SCH (10:24)
[2016-10-08] MEDS: CARVEDILOL 6.25 MG TABLET (COREG) PO SCH ×2 (10:25→22:05)
[2016-10-08] MEDS: POTASSIUM CHLORIDE 20 MEQ TAB.PRT.SR PO SCH (10:25)
[2016-10-08] MEDS: PANTOPRAZOLE SODIUM 40 MG TAB PO SCH (10:25)
[2016-10-08] MEDS: LACTOBACILLUS RHAMNOSUS GG 1 CAP CAPSULE PO SCH ×2 (10:25→22:04)
[2016-10-08] MEDS: CARBIDOPA/LEVODOPA 25/100 MG TABLET PO SCH ×3 (10:26→22:04)
[2016-10-08] MEDS: SERTRALINE HCL 50 MG TABLET PO SCH (10:26)
[2016-10-08] MEDS: ARIPiprazole 2 MG TAB PO SCH (10:29)
[2016-10-08 10:40] LABS: BASOPHILS % (MANUAL) 0 % (0-2); EOSINOPHILS % (MANUAL) 0 % (0-7); LYMPHOCYTES % (MANUAL) 8 % (20-46); MONOCYTES % (MANUAL) 3 % (0-11)
[2016-10-08 12:21] VITALS: Ht 167.6 cm; Wt 89.8 kg
--- NOTE | 2016-10-08 12:30 | NUR ---
ROUNDS Late entry due to patient care. Patient awake, tolerating lunch well. No acute distress noted. Patient denies pain at this time. IVF infusing well. Will continue to monitor. Safety and fall precautions in place, call light within reach.
[2016-10-08 13:01] VITALS: BP 125/59; PULSE 81; RESP 16; TEMP 97.8; O2SAT 98
[2016-10-08] MEDS ORDERED: metroNIDAZOLE 250 mg/NS 50 ML IV SCH (14:00)
--- NOTE | 2016-10-08 14:00 | NUR ---
ROUNDS Late entry due to patient care. Patient repositioned with pillow support. IV ABX given as ordered. No further needs at this time. Safety and fall precautions in place, call light within reach. Will continue to monitor.
--- NOTE | 2016-10-08 15:50 | NUR ---
PHYSICAL THERAPY CO-SIGN The Physical Therapy Progress Notes documented by Security Tech have been reviewed. I CONCUR W/LAND LEASING INFORMATION CLERK NOTE; CONT PER TX PLAN Reviewed/Co-Signed by: Lidia Ward PT Documentation Done by: IRMA CR LAND LEASING INFORMATION CLERK Addendum: 10/08/16 at 1550 by Lidia Ward PT Amended: Links added.
--- NOTE | 2016-10-08 16:20 | NUR ---
ROUNDS Late entry due to patient care. Patient repositioned with pillow support, arousable to name and light stimuli. No acute distress noted. IVF infusing as ordered. Will continue to monitor. Safety and fall precautions in place. Call light within reach.
[2016-10-08 17:03] VITALS: BP 124/68; PULSE 80; RESP 16; TEMP 97.8; O2SAT 98
--- NOTE | 2016-10-08 18:23 | NUR ---
CLOSING NOTE Patient repositioned with pillow support. AO x1. Reoriented patient to time and location. IVF infusing as ordered. grainer machine in place, rhythm noted. Patient tolerated dinner well. No acute distress at this time. Patient denies pain at this time. All needs met throughout shift. Safety, fall, and contact precautions in place, call light within reach. Will endorse to next shift.
--- NOTE | 2016-10-08 18:58 | NUR ---
CRITICAL LAB Positive MRSA of the nares. Dr. Peg sahu.
--- NOTE | 2016-10-08 19:17 | NUR ---
PAGED PAGED TOMMY SHEA AT [phone] SPOKE WITH CHICO.
[2016-10-08 20:00] VITALS: BP 138/64; PULSE 72; RESP 16; TEMP 97.4; O2SAT 99
--- NOTE | 2016-10-08 20:00 | NUR ---
BEGINNING OF CONFIGURATION SPECIALIST NOTE Patient in bed resting. No S/S of pain or distress noted. Patient appears to be very confused. Dinner still at the bed side and appears to be untouched. Report received from the day shift nurse. Fall precautions in place.
--- NOTE | 2016-10-08 22:00 | NUR ---
2200 ROUNDS Patient in bed resting and mumbling speech that is very hard to understand. She requested icy water and the nurse brought a pitcher with icy water. On request by the nurse, the patient responded that she does not want to eat at this time. She appears to be very confused and disoriented, her speech is inappropriate. The nurse made sure the bed alarm is "on" and the call light within reach. The nurse was able to give all PO and IVF medications to the patient at 21:00.
[2016-10-08] MEDS: metroNIDAZOLE 500 MG TABLET PO SCH (22:05)
--- NOTE | 2016-10-09 | NUR ---
0000 ROUNDS Patient in bed sleeping. No S/S of distress or pain noted. Fall precautions in place.
[2016-10-09] MEDS: D5NS 1,000 ML IV SCH ×4 (00:30→16:17)
--- NOTE | 2016-10-09 02:20 | NUR ---
0220 ROUNDS Patient in bed sleeping. The nurse changed the IVF bag. No S/S of any distress or pain noted. Fall precautions in place.
[2016-10-09] MEDS: IPRATROPIUM BROM 0.5 MG/2.5 ML VIAL.NEB (ATROVENT) INH SCH ×5 (03:00→20:26)
[2016-10-09] MEDS: ALBUTEROL SULFATE 0.083% 2.5 MG/3 ML VIAL.NEB INH SCH ×5 (03:00→20:26)
--- NOTE | 2016-10-09 04:54 | NUR ---
0500 ROUNDS Patient in bed sleeping. No S/S of respiratory distress or pain noted. Fall precautions in place.
[2016-10-09 05:13] VITALS: BP 142/72; PULSE 77; RESP 18; TEMP 98.4; O2SAT 96
[2016-10-09 06:40] LABS: BASOPHILS % (AUTO) 0.2 % (0.0-2.0); EOSINOPHILS # (AUTO) 0.2 K/uL (0.0-0.4); EOSINOPHILS % (AUTO) 1.1 % (0.0-4.0); HEMATOCRIT 32.1 % (36-48); HEMOGLOBIN 10.6 g/dL (12.0-16.0); LYMPHOCYTES # (AUTO) 1.8 K/uL (1.0-5.5); MEAN CORPUSCULAR HEMOGLOBIN 30 pg (27-31); MEAN CORPUSCULAR HGB CONC 33 % (32-36); MEAN CORPUSCULAR VOLUME 90 fL (79.0-98.0); MONOCYTES # (AUTO) 0.8 K/uL (0.0-1.0); MONOCYTES % (AUTO) 5.5 % (1.7-9.3); NEUTROPHILS # (AUTO) 12.4 K/uL (1.8-7.7); PLATELET COUNT (AUTO) 402 K/uL (130-430); RED BLOOD CELL COUNT(AUTO) 3.56 MIL/uL (4.2-6.2); WHITE BLOOD COUNT (AUTO) 15.2 K/uL (4.8-10.8)
[2016-10-09] MEDS: PIPERACILLIN/TAZO 2.25G/DEX-IS 50 ML IV SCH ×2 (06:42→14:17)
[2016-10-09] MEDS: metroNIDAZOLE 500 MG TABLET PO SCH ×3 (06:42→22:15)
[2016-10-09 07:15] LABS: ALBUMIN 1.8 g/dL (3.4-4.8); CALCIUM 8.4 mg/dL (8.4-11.0); CREATININE 1.1 mg/dL (0.55-1.30); POTASSIUM 3.4 mmol/L (3.5-5.1); TOTAL BILIRUBIN 0.2 mg/dL (0.0-1.0); TOTAL PROTEIN, SERUM 5.5 g/dL (6.4-8.3)
--- NOTE | 2016-10-09 07:38 | NUR ---
CLOSING NOTE Patient in bed sleeping. No S/S of pain or any distress noted. IVF running smoothly, fall precautions in place. Patient's needs met throughout the shift. Report given to the day shift nurse.
[2016-10-09 08:00] VITALS: BP 124/55; PULSE 72; RESP 14; TEMP 97.8; O2SAT 96
--- NOTE | 2016-10-09 08:30 | NUR ---
OPENING NOTE RECEIVED REPORT FROM NIGHT NURSE. PATIENT IS A X O X 1; INTERMITTENT CONFUSION; ABLE TO VERBALIZE NEEDS. PATIENT IS BEDREST WITH REPOSITIONING ORDERED Q2H, BED ALARM ON, BED IS IN LOWEST POSITION, CALL LIGHT IS WITHIN REACH. PATIENT IS ON ISOLATION FOR CDIFF AND MRSA IN THE NARES. WILL CONTINUE TO MONITOR.
[2016-10-09 09:00] VITALS: BP 124/55; PULSE 72; RESP 14; TEMP 97.8; O2SAT 96
--- NOTE | 2016-10-09 09:09 | NUR ---
Psych Consult: for Dr. Lam, regarding confusion, ordered by Dr. Dawson, spoke with AnnetteDeborah
--- NOTE | 2016-10-09 09:09 | NUR ---
ID Consult: for Dr. Mei, regarding C. diff, ordered by Dr. Dawson, spoke with Geeta.
[2016-10-09] MEDS: ARIPiprazole 2 MG TAB PO SCH (09:25)
[2016-10-09] MEDS: LACTOBACILLUS RHAMNOSUS GG 1 CAP CAPSULE PO SCH ×2 (09:26→20:13)
[2016-10-09] MEDS: CARBIDOPA/LEVODOPA 25/100 MG TABLET PO SCH ×3 (09:26→20:13)
[2016-10-09] MEDS: PANTOPRAZOLE SODIUM 40 MG TAB PO SCH (09:27)
[2016-10-09] MEDS: CARVEDILOL 6.25 MG TABLET (COREG) PO SCH ×2 (09:28→20:13)
[2016-10-09] MEDS: ASPIRIN 325 MG TABLET PO SCH (09:29)
[2016-10-09] MEDS: POTASSIUM CHLORIDE 20 MEQ TAB.PRT.SR PO SCH (09:30)
[2016-10-09] MEDS: DOCUSATE SODIUM 100 MG CAPSULE PO SCH ×2 (09:30→20:13)
[2016-10-09] MEDS: SERTRALINE HCL 50 MG TABLET PO SCH (09:30)
--- NOTE | 2016-10-09 10:00 | NUR ---
1000 NOTE: PATIENT LYING WITH EYES CLOSED, TALKING QUIETLY TO HALLUCINATIONS; PATIENT HAD BOWEL MOVEMENT, SHEETS/LINENS CHANGED, CHUX CHANGED, SACRAL FOAM DRESSING CHANGED, Z GAURD APPLIED TO REDDENED AREAS IN PERIANAL AREAS, CALMASEPTIC APPLIED TO OPEN AREA ON THE SACRUM. PATIENT RESTING COMFORTABLY, STATES " I AM VERY TIRED, I DID NOT REST WELL." PATIENTS BED IN LOWEST POSITION, LOCKED, AND BED ALARM ON. LIGHTS ARE OFF TO ALLOW FOR REST.
--- NOTE | 2016-10-09 10:00 | NUR ---
JIM SCALE EVALUATION: Patient evaluated for a low Jim score of 11. Patient was awake, alert, confused and received in a Linda bed with an IsoFlex ANDREE mattress with low air-loss therapy initiated. Patient is unable to turn independently. Skin is fair (-). Recommend reposition patient side to side only every 2 hours with pillow support and off-load pressure areas with pillows for pressure re-distribution. Elevate, off-load and float bilateral heels with pillows. Stool Culture positive for C. Difficile. Use Calmoseptine cream on buttocks, and other moisture susceptible areas QID and as needed for soiling. Perform skin care and monitor skin integrity Q shift. Maintain patient on a low air-loss mattress. Skin Assessment: 1) Buttocks: Redness from IAD, present on admission. 2) Superior Gluteal Sulcus: Moisture lesion. Site has 90% pink tissue, 10% yellow tissue. No odor, no drainage. Area has redness from moisture. Measures 5.0 cm x 0.7 cm. Recommend: Wash involved areas with mild soap and water. Pat dry. Apply Calmoseptine cream to involved areas QID and as needed for soiling.
[2016-10-09 11:54] LABS: NEUTROPHILS % (AUTO) 81.2 % (40.0-70.0)
[2016-10-09 11:56] VITALS: BP 133/67; PULSE 65; RESP 16; TEMP 97.7; O2SAT 98
--- NOTE | 2016-10-09 12:28 | NUR ---
1200 NOTE: PATIENT RESTING COMFORTABLY, BED IN LOWEST POSITION, CALL LIGHT WITHIN REACH, BED IN LOCKED POSITION, AND BED ALARM ON. PATIENT DENIES ANY PAIN AT THIS TIME AND PATIENT POSITIONED ON RIGHT SIDE. WILL CONTINUE TO MONITOR.
--- NOTE | 2016-10-09 14:27 | NUR ---
1400 NOTE: PATIENT IS RESTING IN SUPINE POSITION, CONFUSED, TALKING TO VOICES, ALTHOUGH SHE IS CALM AND DOES WAKE TO HER NAME. SHE WAS ABLE TO TAKE PO MEDICATION WITH PUDDING, TOLERATED. IV MEDICATIONS STARTED. PATIENTS BED IS IN LOWEST POSITION, 2 RAILS UP, BED ALARM ON. PATIENT DENIES ANY PAIN AT THIS TIME. WILL CONTINUE TO MONITOR PATIENT.
--- NOTE | 2016-10-09 14:45 | NUR ---
PHYSICAL THERAPY CO-SIGN The Physical Therapy Progress Notes documented by Foreign Exchange Trader have been reviewed. Reviewed/Co-Signed by: Yuli Hauser, PT Documentation Done by: Nico Davis PTA I concur with the documentation of this YARD CONDUCTOR. Plan: continue PT as per plan of care. Addendum: 10/09/16 at 1523 by Yuli Hauser PT Amended: Links added.
--- NOTE | 2016-10-09 16:00 | NUR ---
1600 NOTE: PATIENT RESTING COMFORTABLY. NO COMPLAINTS OF PAIN OR DISCOMFORT. BED IN LOWEST POSITION, CALL LIGHT WITHIN REACH, RAILS ARE UP, AND POSSESSIONS ARE WITHIN REACH. WILL CONTINUE TO MONITOR.
[2016-10-09 17:30] VITALS: BP 139/67; PULSE 72; RESP 17; TEMP 98.1; O2SAT 99
[2016-10-09] MEDS: cefTRIAXone 1 GM in D5W 50 ML IV SCH (18:26)
[2016-10-09] MEDS: FLUCONAZOLE 100 mg/ NS 50 ML IV SCH (18:35)
--- NOTE | 2016-10-09 18:48 | NUR ---
CLOSING NOTE: WILL BE GIVING REPORT TO DISHWASHER BUSSER NURSE. PATIENT IS A X O X 1; INTERMITTENT CONFUSION; ABLE TO VERBALIZE NEEDS. PATIENT IS TALKING TO HERSELF. PATIENT IS BEDREST WITH REPOSITIONING ORDERED Q2H, BED ALARM ON, BED IN LOWEST POSITION, CALL LIGHT WITHIN REACH. PATIENT IS ON ISOLATION FOR CDIFF AND MRSA OF THE NARES. WILL CONTINUE TO MONITOR.
--- NOTE | 2016-10-09 19:30 | NUR ---
initial nursing notes: Patient is awake and is confused. Reoriented patient to place, time and reason for being in the hospital. Kept bed alarm on and siderails up X 3 for patient's safety. Patient is on contact isolation for C-diff and droplet isolation for MRSA on the nares.
[2016-10-09 20:09] VITALS: BP 136/72; PULSE 74; RESP 16; TEMP 98.7; O2SAT 96
--- NOTE | 2016-10-09 21:30 | NUR ---
nursing rounds: Patient resting in bed. Patient's Snider catheter is draining madison colored urine output. Patient is being repositioned every 2 hours to prevent skin redness/breakdown.
[2016-10-09] MEDS: MUPIROCIN 2% TOPICAL OINTMENT 22 GM TP SCH (22:07)
[2016-10-09] MEDS: MENTHOL/ZINC OXIDE 113 GM OINT. TP PRN (22:08)
[2016-10-09] MEDS: MENTHOL/ZINC OXIDE 113 GM OINT. TP SCH (22:11)
--- NOTE | 2016-10-09 23:30 | NUR ---
nursing rounds: Patient has non-productive cough and receives breathing treatment. Patient denies of having pain at this time.
[2016-10-10] VITALS (7 sets, daily range): BP systolic 134–149; BP diastolic 57–73; PULSE 70–82; RESP 15–19; TEMP 96.9–98.4; O2SAT 97–99
[2016-10-10] MEDS: ALBUTEROL SULFATE 0.083% 2.5 MG/3 ML VIAL.NEB INH SCH ×7 (00:04→23:00)
[2016-10-10] MEDS: IPRATROPIUM BROM 0.5 MG/2.5 ML VIAL.NEB (ATROVENT) INH SCH ×7 (00:04→23:00)
--- NOTE | 2016-10-10 01:30 | NUR ---
nursing rounds: Patient asleep in bed. Patient has no shortness of breath.
[2016-10-10] MEDS: D5NS 1,000 ML IV SCH ×4 (02:46→22:53)
--- NOTE | 2016-10-10 03:30 | NUR ---
nursing rounds: Patient calmly resting in bed. Patient has no respiratory distress.
--- NOTE | 2016-10-10 05:30 | NUR ---
nursing rounds: Patient had a small amount of loose stool in bed. Patient was cleaned and bedsheets were changed.
[2016-10-10] MEDS: metroNIDAZOLE 500 MG TABLET PO SCH ×3 (05:31→21:38)
--- NOTE | 2016-10-10 07:43 | NUR ---
closing nursing notes: Patient is awake and alert. Patient is in no acute respiratory distress. No episodes of fall and no injuries throughout the restaurant shift leader. Provided nursing report to incoming morning shift nurse, DARIEN Garcia, at patient's bedside.
--- NOTE | 2016-10-10 08:00 | NUR ---
NOTE PT SITTING UP IN BED BEING FED HIS BREAKFAST BY STUDENT NURSES. NO SOB/RESP DISTRESS OR PAIN/DISCOMFORT NOTED AT THIS TIME. IV IN RIGHT HAND INTACT AND PATENT AT THIS TIME, IVF'S INFUSING WELL. TELE UNIT INTACT AND ATTACHED. PT'S LI CATHETER INTACT AND DRAINING WELL AT THIS TIME. SCD'S ON BILATERALLY AT THIS TIME. PT RESTING ON AIR MATTRESS AT THIS TIME. CALL LIGHT WITHIN REACH.
[2016-10-10] MEDS: MUPIROCIN 2% TOPICAL OINTMENT 22 GM TP SCH ×2 (09:06→21:34)
[2016-10-10] MEDS: DOCUSATE SODIUM 100 MG CAPSULE PO SCH ×2 (09:07→21:38)
[2016-10-10] MEDS: MENTHOL/ZINC OXIDE 113 GM OINT. TP PRN ×2 (09:07→16:20)
[2016-10-10] MEDS: ARIPiprazole 2 MG TAB PO SCH (09:07)
[2016-10-10] MEDS: CARVEDILOL 6.25 MG TABLET (COREG) PO SCH ×2 (09:07→21:37)
[2016-10-10] MEDS: POTASSIUM CHLORIDE 20 MEQ TAB.PRT.SR PO SCH (09:08)
[2016-10-10] MEDS: CARBIDOPA/LEVODOPA 25/100 MG TABLET PO SCH ×3 (09:08→21:37)
[2016-10-10] MEDS: PANTOPRAZOLE SODIUM 40 MG TAB PO SCH (09:08)
[2016-10-10] MEDS: SERTRALINE HCL 50 MG TABLET PO SCH (09:08)
[2016-10-10] MEDS: ASPIRIN 325 MG TABLET PO SCH (09:08)
[2016-10-10] MEDS: LACTOBACILLUS RHAMNOSUS GG 1 CAP CAPSULE PO SCH ×2 (09:08→21:38)
[2016-10-10] MEDS: MENTHOL/ZINC OXIDE 113 GM OINT. TP SCH ×4 (09:10→21:34)
--- NOTE | 2016-10-10 10:00 | NUR ---
NOTE PT WAS SEEN AND ASSESSED BT DR EPPERSON AT THIS TIME. PT'S DAUGHTER ALSO CALLED AND UPDATE ON PT WAS GIVEN AT THIS TIME. PT CALM ALL SHIFT. NO NEEDS NOTED AT THIS TIME. CALL LIGHT WITHIN REACH.
--- NOTE | 2016-10-10 11:20 | NUR ---
PT NOTES CHART REVIEWED AND CLEARED FOR PT BY RN. PATIENT IN SEMIFOWLER POSITION TALKING TO SELF AND APPEARS TO BE UPSET. PATIENT DECLINED PARTICIPATION IN THERAPY DESPITE EDUCATION AND MOTIVATION, PATIENT STATED, "NO, GET OUT OF HERE, I DON'T GET UP". DECLINED TAKING BP READING. DESPITE NUMEROUS ATTEMPTS, PATIENT PULLS AWAY DESPITE ENCOURAGING. PATIENT DID NOT EXPRESS PAIN, BUT ASKED FOR A DRINK AND PROVIDED APPLE JUICE AND WATER. CONTACT ISOLATION OBSERVED. TRAY AND CALL LIGHT IN REACH, NO OTHER NEEDS EXPRESSED, RN MADE AWARE. WILL FOLLOW UP WITH PATIENT NEXT THERAPY SESSION IF POSSIBLE. PVEx1 Addendum: 10/10/16 at 1443 by Yuli Hauser PT PHYSICAL THERAPY CO-SIGN The Physical Therapy Progress Notes documented by Injection Machine Operator have been reviewed. Reviewed/Co-Signed by: Yuli Hauser PT Documentation Done by: Nico Davis PTA
--- NOTE | 2016-10-10 12:00 | NUR ---
NOTE PT SITTING UP IN BED - LUNCH TRAY IN FRONT OF PT. ASSISTANCE BEING GIVEN TO PT TO EAT HER LUNCH AT THIS TIME. PT STABLE AT THIS TIME. CALL LIGHT WITHIN REACH.
--- NOTE | 2016-10-10 13:51 | NUR ---
Nutrition F/U and Consult Admitting Diagnosis Sepsis Reviewed Pertinent Medical/Surgical Hx Patient Other Medical Record Medical History Comment: Respiratory failure, CHF, bipolar, Parkinson's, bipolar disorder, DM type 2 per MD notes Subjective Information Nutrition Consult (Wound, Jim Scale 11) 10/09/16 1748 Pt seen resting in bed at time of RD visit, seemingly confused/disoriented, and unable to engage in RD verbal interview. Per RN, pt has been able to tolerate meals, and takes applesauce/juices w/ meds. Per EMR, PO Intakes: 31% average x4 meals. Abd is soft w/ active bowel sounds. Last BM x1 10/10/16. Jim scale: 13;Per Napper Fixer note 10/09/16; skin is fair (-); 1) Buttocks: Redness from IAD, present on admission. 2) Superior Gluteal Sulcus: Moisture lesion. Site has 90% pink tissue, 10% yellow tissue. I/O: 620/0 (+620 ml) per 12 hours. Pt is not yet meeting optimal nutritional needs. Pt is not yet appropriate for nutrition education. Current Diet Order/Nutrition Support CCHO, cardiac, mechanical soft diet (x2 days) Education Provided Not Indicated Pertinent Medications Reviewed ceftriaxone/D5% IV at 100 ml/hr (408 kcal/day) and D5%/NaCl IVF at 150 ml/hr (612 kcal/day) Pertinent Labs Reviewed Height (Feet) 5 feet Height (Inches) 6.00 inches Weight (Pounds) 198 pounds Weight (Calculated Kilograms) 89.844512 kilograms BEDSCALE WT: 172 lb, 78 kg (10/10/16) Patient Weight 89.811 kg Body Mass Index 31.95 kg/m2 [place]/Adjusted Body Weight IBW: 130 lb, 59 kg Weight Status Obese Usual Diet At Home [facility]: DAVIDE/NCS diet, regular texture, thin liquids consistency Estimated Energy Expenditure (kcals/day) 6365-0180 kcal/day (30-35 kcal/kg IBW for sepsis) Estimated Protein Required (g/day) 89-118 gm/day (1.5-2 gm/kg IBW for sepsis) Estimated Fluid Required (l/day) Per MD (CHF) Problem/Etiology/Signs/Symptoms (modified) Impaired GI function related to nausea as evidenced by pt report and poor PO intakes. *seemingly resolved Inadequate nutritional intakes related to cognitive limitations as evidenced by inability to meet optimal nutritional needs w/ current poor appetite/PO intakes. Expected Outcomes/Goals - Monitor appetite and PO intakes w/ goal of pt meeting at least 75% of estimated nutritional needs, labs trending WNL, normal GI function, and skin integrity/wt maintenance Dietitian Recommendations * Recommend continuing CCHO, cardiac, mechanical soft diet, Boost Glucose Control BID (oral supplement provides an additional 500 kcal/day and 28 gm protein/day) * Recommend encourage increase PO intakes Follow Up High Risk: F/U in 2-3 days
[2016-10-10 15:09] LABS: FOLATE (FOLIC ACID) 4.3 ng/mL (>3.0)
--- NOTE | 2016-10-10 16:00 | NUR ---
NOTE PT RESTING IN BED. NO NEEDS NOTED. PT RECEIVING HER BREATHING TREATMENTS SCHEDULED. IVF'S INFUSING WELL THROUGH RIGHT IV SITE AT THIS TIME. CALL LIGHT WITHIN REACH.
[2016-10-10] MEDS: cefTRIAXone 1 GM in D5W 50 ML IV SCH (16:19)
[2016-10-10] MEDS: FLUCONAZOLE 100 mg/ NS 50 ML IV SCH (18:01)
--- NOTE | 2016-10-10 18:10 | NUR ---
NOTE PT WAS ASSISTED IN EATING HER DINNER BY PHARMACY ACCOUNT DIRECTOR AT THIS TIME. PT WAS CHECKED ON Q1' AND PRN ALL SHIFT. IVF'S INFUSING WELL THROUGH RIGHT IV SITE. CALL LIGHT WITHIN REACH.
--- NOTE | 2016-10-10 19:30 | NUR ---
initial nursing notes: Patient is awake and confused. Patient is mumbling to herself. Reoriented patient to place, time and reason for being in the hospital. Kept bed alarm on and siderails up X 3 for patient's safety.
--- NOTE | 2016-10-10 21:30 | NUR ---
nursing rounds: Patient is being repositioned every 2 hours to prevent skin redness/breakdown. Patient denies of having pain.
--- NOTE | 2016-10-10 23:30 | NUR ---
nursing rounds: Patient asleep in bed. Patient's Snider catheter is draining madison colored urine output.
[2016-10-11] VITALS (7 sets, daily range): BP systolic 118–149; BP diastolic 57–82; PULSE 70–94; RESP 15–20; TEMP 96–99; O2SAT 92–99
--- NOTE | 2016-10-11 | NUR ---
rounds: Patient restful. Repositioned. Respirations remain even and unlabored. No distress noted. Call light within reach. Bed in low position. Addendum: 10/12/16 at 0755 by Sandra Lopez RN Correction: Wrong date
--- NOTE | 2016-10-11 | NUR ---
Rounds: Patient continues restful. Iv to left forearm intact. Fluid infusing without difficulty. Respirations remain unlabored and regular. No distress noted. Addendum: 10/12/16 at 0754 by Sandra Lopez RN Correct date for this notation is 10/12/16
--- NOTE | 2016-10-11 01:30 | NUR ---
nursing rounds: Patient is sleeping in bed. Patient has no shortness of breath.
--- NOTE | 2016-10-11 02:10 | NUR ---
Rounds: Repositioned for comfort. No distress noted. Side rails remain up with bed in low position. Patient responsive to verbal/tactile stimuli. Call light within reach. Addendum: 10/12/16 at 0756 by Sandra Lopez RN Correction: Wrong date
--- NOTE | 2016-10-11 03:30 | NUR ---
nursing rounds: Patient calmly resting in bed, no labored breathing noted.
--- NOTE | 2016-10-11 05:30 | NUR ---
nursing rounds: Patient is sleeping in bed. Patient has no respiratory distress.
[2016-10-11] MEDS: D5NS 1,000 ML IV SCH ×3 (06:20→23:45)
[2016-10-11] MEDS: metroNIDAZOLE 500 MG TABLET PO SCH ×3 (06:22→22:02)
--- NOTE | 2016-10-11 06:55 | NUR ---
Dr. Dawson Notified: This morning around 0230, patient had an episode of v-tach (11 beats) then patient's heart rhythm went back to Sinus Rhythm. Patient was resting in bed, no shortness of breath, no chest pain, no headache. Checked patient's vital signs. BP= 139/68 mmHg, P= 80 bpm, R= 15 breaths/min, O2 sat: 96% at room air. Dr. Dawson was made aware of this incident and ordered for cardiac consult with Dr. Carmona.
[2016-10-11] MEDS: ALBUTEROL SULFATE 0.083% 2.5 MG/3 ML VIAL.NEB INH SCH ×4 (07:25→20:16)
[2016-10-11] MEDS: IPRATROPIUM BROM 0.5 MG/2.5 ML VIAL.NEB (ATROVENT) INH SCH ×4 (07:25→20:16)
[2016-10-11 07:27] LABS: BASOPHILS # (AUTO) 0.1 K/uL (0.0-0.2); BASOPHILS % (AUTO) 0.5 % (0.0-2.0); EOSINOPHILS # (AUTO) 0.2 K/uL (0.0-0.4); EOSINOPHILS % (AUTO) 1.4 % (0.0-4.0); HEMATOCRIT 33.9 % (36-48); HEMOGLOBIN 11.5 g/dL (12.0-16.0); LYMPHOCYTES # (AUTO) 1.9 K/uL (1.0-5.5); LYMPHOCYTES % (AUTO) 13.6 % (20.5-51.5); MEAN CORPUSCULAR HEMOGLOBIN 30 pg (27-31); MEAN CORPUSCULAR HGB CONC 34 % (32-36); MEAN CORPUSCULAR VOLUME 89 fL (79.0-98.0); MONOCYTES # (AUTO) 0.8 K/uL (0.0-1.0); MONOCYTES % (AUTO) 5.6 % (1.7-9.3); NEUTROPHILS # (AUTO) 10.9 K/uL (1.8-7.7); NEUTROPHILS % (AUTO) 78.9 % (40.0-70.0); PLATELET COUNT (AUTO) 423 K/uL (130-430); RED CELL DISTRIBUTION WIDTH 12.7 % (9.0-15.0); WHITE BLOOD COUNT (AUTO) 13.9 K/uL (4.8-10.8)
[2016-10-11 07:30] LABS: ALBUMIN 1.8 g/dL (3.4-4.8); CALCIUM 8.2 mg/dL (8.4-11.0); CREATININE 0.93 mg/dL (0.55-1.30); POTASSIUM 3.4 mmol/L (3.5-5.1); TOTAL BILIRUBIN 0.2 mg/dL (0.0-1.0); TOTAL PROTEIN, SERUM 5.2 g/dL (6.4-8.3)
--- NOTE | 2016-10-11 07:53 | NUR ---
CARDIOLOGY CONSULT Spoke with Cathryn regarding request for consultation with Dr. Carmona ([phone]) for reason: episodes of v-tach (11 beats).
--- NOTE | 2016-10-11 08:00 | NUR ---
INITIAL NOTES PT IN BED AWAKE, ORIENTED TO NAME AND PLACE. DENIES ANY PAIN OR DISCOMFORT. ON ROOM AIR. DENIES ANY SHORTNESS OF BREATH OR CHEST PAIN. IVF INFUSING WELL. LI CATH DRAINING WELL. ON AIR LOW MATRESS. DRESSING NOTED ON THE COCCYX AREA. CONTACT FOR C DIFF AND MRSA NARES OBSERVED. WILL MONITOR.
--- NOTE | 2016-10-11 08:00 | NUR ---
Dr. Carmona Notified: This morning around 0230, patient had an episode of v-tach (11 beats) then patient's heart rhythm went back to Sinus Rhythm. Patient was resting in bed, no shortness of breath, no chest pain, no headache. Checked patient's vital signs. BP= 139/68 mmHg, P= 80 bpm, R= 15 breaths/min, O2 sat: 96% at room air. Dr. Carmona was made aware of this incident. Dr. Carmona stated that he will come and review the patient's chart.
--- NOTE | 2016-10-11 08:08 | NUR ---
closing nursing notes: Patient is awake and alert. Patient is in no acute respiratory distress. No episodes of fall and no injuries throughout the shiftman. Provided nursing report to incoming morning shift nurse, Annette Monique RN, at patient's bedside.
[2016-10-11] MEDS: ARIPiprazole 2 MG TAB PO SCH (09:18)
[2016-10-11] MEDS: CARBIDOPA/LEVODOPA 25/100 MG TABLET PO SCH ×3 (09:18→22:02)
[2016-10-11] MEDS: MUPIROCIN 2% TOPICAL OINTMENT 22 GM TP SCH ×2 (09:18→22:06)
[2016-10-11] MEDS: DOCUSATE SODIUM 100 MG CAPSULE PO SCH ×2 (09:18→21:16)
[2016-10-11] MEDS: CARVEDILOL 6.25 MG TABLET (COREG) PO SCH ×2 (09:18→22:04)
[2016-10-11] MEDS: POTASSIUM CHLORIDE 20 MEQ TAB.PRT.SR PO SCH (09:18)
[2016-10-11] MEDS: PANTOPRAZOLE SODIUM 40 MG TAB PO SCH (09:19)
[2016-10-11] MEDS: LACTOBACILLUS RHAMNOSUS GG 1 CAP CAPSULE PO SCH ×2 (09:19→22:05)
[2016-10-11] MEDS: SERTRALINE HCL 50 MG TABLET PO SCH (09:19)
[2016-10-11] MEDS: MENTHOL/ZINC OXIDE 113 GM OINT. TP SCH ×4 (09:19→23:44)
[2016-10-11] MEDS: ASPIRIN 325 MG TABLET PO SCH (09:19)
--- NOTE | 2016-10-11 09:30 | NUR ---
MEDS MORNING MEDS GIVEN. ABLE TO SWALLOW PILLS ONE AT A TIME. PT IS A FEEDER.
--- NOTE | 2016-10-11 10:00 | NUR ---
MD ROUNDS SEEN BY DR. EPPERSON AND DR. DUDLEY.
--- NOTE | 2016-10-11 12:00 | NUR ---
BM HAD MEDIUM PASTY STOOL. CLEANED AND REPOSITIONED WITH THE GENERAL HELPER. Addendum: 10/11/16 at 1813 by Annette Montoya RN DRESSING CHANGED ON THE WOUND ON THE COCCYX AREA.
--- NOTE | 2016-10-11 14:08 | NUR ---
ROUNDS RESTING IN BED AT THIS TIME. TURN AND REPOSITION. NO DISTRESS NOTED.
--- NOTE | 2016-10-11 16:00 | NUR ---
ROUNDS RESTING IN BED, STABLE. DENIES ANY PAIN OR DISCOMFORT.
[2016-10-11] MEDS: cefTRIAXone 1 GM in D5W 50 ML IV SCH (16:02)
[2016-10-11] MEDS: FLUCONAZOLE 100 mg/ NS 50 ML IV SCH (17:17)
--- NOTE | 2016-10-11 18:15 | NUR ---
NOTES TURNED AND REPOSITIONED. HAD SMALL PASTY STOOL. NO DISTRESS NOTED. IVF INFUSING WELL.
--- NOTE | 2016-10-11 19:45 | NUR ---
initial note: Responsive to verbal/tactile stimuli. Obeys simple commands. No s/s of distress at this time. Side rails up with bed in low position. Call light within reach. Assessment completed (see record). Iv site intact flluid infusing without difficulty. Repositioned for comfort.
--- NOTE | 2016-10-11 22:00 | NUR ---
Rounds: Patient restful. Respirations are regular and unlabored. Contact isolation and Respiratory isolation precautions in progress. Air mattress in place. No s/s of distress. Bed in low position with call light in reach.
--- NOTE | 2016-10-12 03:00 | NUR ---
RN ROUNDS: PT IS SLEEPING; NOT IN ANY ACUTE DISTRESS; WILL CONTINUE TO MONITOR.
[2016-10-12 03:44] VITALS: BP 129/62; PULSE 83; RESP 16; TEMP 98.6; O2SAT 97
[2016-10-12 05:05] VITALS: BP 139/74; PULSE 66; RESP 18; TEMP 97.7; O2SAT 98
--- NOTE | 2016-10-12 05:10 | NUR ---
initial note: Responsive to verbal/tactile stimuli. Obeys simple commands. No s/s of distress at this time. Side rails up with bed in low position. Call light within reach.
[2016-10-12] MEDS: metroNIDAZOLE 500 MG TABLET PO SCH ×3 (05:25→21:28)
--- NOTE | 2016-10-12 05:30 | NUR ---
SPONGE BATH: SPONGE BATH AND PERICARE GIVEN ; PT HAD ANOTHER SEMI LOOSE BM ; LINEN AND GOWN CHANGED ; CHG BATH GIVEN ; DRESSING TO THE SACRUM REMOVED , CLEANED WITH NS AND APPLIED NEW SACRAL DRESSING ;CALMOSEPTIN APPLIED TO THE REDDENNED AND DENUDED GROIN, SACRAL AND BUTTOCKS AREA.
[2016-10-12] MEDS: ALBUTEROL SULFATE 0.083% 2.5 MG/3 ML VIAL.NEB INH SCH ×5 (06:50→22:52)
[2016-10-12] MEDS: IPRATROPIUM BROM 0.5 MG/2.5 ML VIAL.NEB (ATROVENT) INH SCH ×5 (06:50→22:52)
--- NOTE | 2016-10-12 07:10 | NUR ---
Closing Note: Patient continues restful at this time. Respirations remain regular and unlabored. No distress noted throughout night. Call light within reach.
--- NOTE | 2016-10-12 07:55 | NUR ---
INITIAL NOTES PT IN BED AWAKE, DENIES ANY PAIN OR DISCOMFORT. BREATHING EVEN AND UNLABORED. AFEBRILE. V/S STABLE. IVF INFUSING WELL D5NS AT 75CC/HR. MAINTAIN ON CONTACT ISOLATION FOR C DIFF AND MRSA NARES. SAFETY PRECAUTION OBSERVED. NO DISTRESS NOTED. WILL MONITOR.
[2016-10-12 08:00] VITALS: BP 138/73; PULSE 92; RESP 17; TEMP 97.4; O2SAT 98
[2016-10-12] MEDS: PANTOPRAZOLE SODIUM 40 MG TAB PO SCH (09:05)
[2016-10-12] MEDS: POTASSIUM CHLORIDE 20 MEQ TAB.PRT.SR PO SCH (09:05)
[2016-10-12] MEDS: DOCUSATE SODIUM 100 MG CAPSULE PO SCH ×2 (09:05→21:28)
[2016-10-12] MEDS: ARIPiprazole 2 MG TAB PO SCH (09:05)
[2016-10-12] MEDS: LACTOBACILLUS RHAMNOSUS GG 1 CAP CAPSULE PO SCH (09:05)
[2016-10-12] MEDS: ASPIRIN 325 MG TABLET PO SCH (09:05)
[2016-10-12] MEDS: CARBIDOPA/LEVODOPA 25/100 MG TABLET PO SCH ×3 (09:06→21:28)
[2016-10-12] MEDS: SERTRALINE HCL 50 MG TABLET PO SCH (09:06)
[2016-10-12] MEDS: CARVEDILOL 6.25 MG TABLET (COREG) PO SCH ×2 (09:06→21:28)
[2016-10-12] MEDS: MENTHOL/ZINC OXIDE 113 GM OINT. TP SCH ×4 (09:07→21:31)
[2016-10-12] MEDS: MENTHOL/ZINC OXIDE 113 GM OINT. TP PRN ×2 (09:07→21:29)
[2016-10-12] MEDS: MUPIROCIN 2% TOPICAL OINTMENT 22 GM TP SCH ×2 (09:07→21:29)
--- NOTE | 2016-10-12 10:05 | NUR ---
NOTES Resting in bed, turn and repositioned. no distress noted.
[2016-10-12] MEDS: D5NS 1,000 ML IV SCH ×2 (10:35→13:37)
[2016-10-12 12:00] VITALS: BP 144/92; PULSE 81; RESP 20; TEMP 97.3; O2SAT 99
--- NOTE | 2016-10-12 12:10 | NUR ---
ROUNDS TURNED AND REPOSITIONED. NO S/S OF PAIN AND DISCOMFORT.
--- NOTE | 2016-10-12 14:30 | NUR ---
NOTES RESTING COMFORTABLY IN BED. BREATHING EVEN AND UNLABORED. TURNED AND REPOSITIONED.
[2016-10-12 17:15] VITALS: BP 139/89; PULSE 83; RESP 20; TEMP 97.2; O2SAT 99
[2016-10-12] MEDS: FLUCONAZOLE 100 mg/ NS 50 ML IV SCH (17:17)
--- NOTE | 2016-10-12 18:46 | NUR ---
NOTES AWAKE, DENIES ANY PAIN OR DISCOMFORT. IVF INFUSING WELL. NO DISTRESS NOTED. WILL ENDORSE
[2016-10-12 20:00] VITALS: BP 145/77; PULSE 84; RESP 20; TEMP 97.6; O2SAT 98
--- NOTE | 2016-10-12 20:00 | NUR ---
AWAKE. INCOHERENT. TANGENTIAL. WORD SALAD. INAPPROPRIATE. DELUSIONAL. ON ROOM AIR. POX 98%. BREATH SOUNDS CLEAR. BOWEL SOUNDS (+). PULSES PALPABLE. SKIN W/D. COLOR SATISFACTORY. HOB UP TO COMFORT. SIDE RAILS UP. CALL LIGHTS WITHIN REACH. LI CATH PATENT DRAINING CLOUDY TIM URINE TO GRAVITY. SR.
--- NOTE | 2016-10-12 21:00 | NUR ---
ABLE TO SWALLOW CRUSHED PILLS WITH APPLE SAUCE WITHOUT INCIDENCE. 1 SMALL GELATINOUS BROWN STOOL DEFECATED. SHAHEEN-CARE, LI CARE, BACK CARE RENDERED. CALMOSEPTINE APPLIED TO PERINEUM AND REDDENED AREAS. SKIN CARE DONE. REPOSITIONED. JEYSON PROC WELL.
--- NOTE | 2016-10-13 | NUR ---
SOUNDLY ASLEEP. VSS. LOOKS COMFORTABLE.
[2016-10-13 00:17] VITALS: BP 140/72; PULSE 96; RESP 20; TEMP 98.2; O2SAT 97
[2016-10-13] MEDS: ALBUTEROL SULFATE 0.083% 2.5 MG/3 ML VIAL.NEB INH SCH ×6 (03:00→23:00)
[2016-10-13] MEDS: IPRATROPIUM BROM 0.5 MG/2.5 ML VIAL.NEB (ATROVENT) INH SCH ×6 (03:00→23:00)
[2016-10-13 03:48] VITALS: BP 136/63; PULSE 70; RESP 18; TEMP 98.6; O2SAT 97
[2016-10-13] MEDS: D5NS 1,000 ML IV SCH (03:55)
--- NOTE | 2016-10-13 04:00 | NUR ---
SLEPT FOR LONG PERIODS OF TIME. AM CARE.
--- NOTE | 2016-10-13 05:30 | NUR ---
1 SMALL BROWN STOOL, CLEANED. SHAHEEN CARE. BACK CARE, LI CARE, SKIN CARE DONE. PARTIAL LINEN CHANGE. DOES NOT ASSIST WITH TURNING. JEYSON PROC WELL.
[2016-10-13] MEDS: metroNIDAZOLE 500 MG TABLET PO SCH ×3 (06:00→21:12)
--- NOTE | 2016-10-13 06:00 | NUR ---
SWALLOWED CRUSHED PILL MIXED IN CHOCOLATE PUDDING WITHOUT PROBLEMS. ABLE TO CARRY OUT SIMPLE CONVERSATIONS . STATED SHE SLEPT WELL. REMAINS IN GUARDED CONDITION.
--- NOTE | 2016-10-13 07:15 | NUR ---
NRSG: RECEIVED FROM NIGHT NURSE, EYES CLOSED BUT ABLE TO ANSWER , AND KNOWS HER NAME ONLY, RESPIRATION EVEN AND UNLABORED. LUNGS CLEAR BUT DIMINISHED ON THE BASES. ON ROOM AIR AND O2 SAT. 97%. ABDOMEN SOFT WITH BOWEL SOUNDS X 4 QUADRANTS. SWOLLEN ON BOTH ARMS . AND ELEVATED WITH PILLOW. HAD F/C CATH DRAINING YELLOW URINE. HAD SCD ON BILATERAL AND ON AIR MATTRESS. HAD IVF AND THE SITE ON THE LEFT HAND GAUGE 22 INTACT AND INPLACED AND CALL LIGHT WITHIN REACH.
[2016-10-13 08:00] VITALS: BP 140/76; PULSE 93; RESP 18; TEMP 97.5; O2SAT 97
[2016-10-13] MEDS: MENTHOL/ZINC OXIDE 113 GM OINT. TP SCH ×4 (09:00→21:12)
[2016-10-13] MEDS: CARBIDOPA/LEVODOPA 25/100 MG TABLET PO SCH ×3 (09:20→21:11)
[2016-10-13] MEDS: DOCUSATE SODIUM 100 MG CAPSULE PO SCH ×2 (09:20→21:00)
[2016-10-13] MEDS: ASPIRIN 325 MG TABLET PO SCH (09:20)
[2016-10-13] MEDS: ARIPiprazole 2 MG TAB PO SCH (09:20)
[2016-10-13] MEDS: SERTRALINE HCL 50 MG TABLET PO SCH (09:21)
[2016-10-13] MEDS: PANTOPRAZOLE SODIUM 40 MG TAB PO SCH (09:21)
[2016-10-13] MEDS: POTASSIUM CHLORIDE 20 MEQ TAB.PRT.SR PO SCH (09:21)
[2016-10-13] MEDS: CARVEDILOL 6.25 MG TABLET (COREG) PO SCH ×2 (09:21→21:11)
[2016-10-13] MEDS: MUPIROCIN 2% TOPICAL OINTMENT 22 GM TP SCH ×2 (09:22→21:10)
[2016-10-13] MEDS: MENTHOL/ZINC OXIDE 113 GM OINT. TP PRN ×3 (09:23→18:13)
--- NOTE | 2016-10-13 09:30 | NUR ---
CRUSH MEDS.: MEDS NEEDS TO BE CRUSHED AND MIXED WITH APPLE SAUCE AND ABLE TO TAKE IT WITHOUT DIFFICULTY AND DRINK H20 WELL. WILL CONTINUE TO MONITOR PAITIENT.
--- NOTE | 2016-10-13 10:41 | NUR ---
RHYTHYMN: ON SINUS RHYTHYMN ON THE MONITOR WITH PAC.
--- NOTE | 2016-10-13 11:25 | NUR ---
ROUNDS: SEEN AND EXAMINED BY DR. DUDLEY WITH NEW ORDERS. TO UPGRADE PATIENT FROM TELE TO MEDSURG, CHRISTINE LOVELL.
[2016-10-13 11:41] VITALS: BP 132/76; PULSE 72; RESP 20; TEMP 97.3; O2SAT 98
--- NOTE | 2016-10-13 11:42 | NUR ---
Social Service/Discharge Planning Note: [facility] received order for [facility] placement; [facility] placed phone call to Marty ([phone]) at [facility]; Marty states that pt's CDiff would need to be resolved, pt needs to be able to assist with turning and pt needs to be able to feed herself before they would consider pt for admission. Pt is also not a 5150. [facility] has updated CM director and asked that she speak to physician about discharge plan. Addendum: 10/13/16 at 1355 by Nicole Alvarez LCSW SHANNAN spoke with pt's dtr, Denys, via phone. Denys states that she did speak with pt's physician and he alerted her that pt would be appropriate going to a SNF upon discharge vs going to a [facility]; [facility] updated Denys that [facility] had contacted [facility]. Denys states that pt had been at [facility] in [place] in the past but pt's "mindset was much different than now". Denys states that she is agreeable to pt returning to [facility] for rehabilitation. [facility] alerted Denys that DC site planner would make referral today and [facility] or DC site planner would update her if a bed was available today for pt's discharge. [facility] has updated DC site planner; [facility] will follow up as needed.
--- NOTE | 2016-10-13 12:09 | NUR ---
D/C TELE RECEIVED T/O ORDERED FROM DR DUDLEY D/C TELE AND CHANGE PT TO MED SURG. DR DUDLEY AWARE ABOUT patient had an episode of v-tach (11 beats) ON 10/11/[address] DUDLEY stated it was two days ago.
[2016-10-13 12:12] LABS: BASOPHILS % (AUTO) 0.3 % (0.0-2.0); EOSINOPHILS # (AUTO) 0.2 K/uL (0.0-0.4); EOSINOPHILS % (AUTO) 1.3 % (0.0-4.0); HEMOGLOBIN 10.8 g/dL (12.0-16.0); LYMPHOCYTES # (AUTO) 1.4 K/uL (1.0-5.5); LYMPHOCYTES % (AUTO) 11.1 % (20.5-51.5); MEAN CORPUSCULAR HEMOGLOBIN 30 pg (27-31); MEAN CORPUSCULAR HGB CONC 34 % (32-36); MEAN CORPUSCULAR VOLUME 88 fL (79.0-98.0); MONOCYTES # (AUTO) 0.4 K/uL (0.0-1.0); MONOCYTES % (AUTO) 3.1 % (1.7-9.3); NEUTROPHILS # (AUTO) 10.6 K/uL (1.8-7.7); NEUTROPHILS % (AUTO) 84.2 % (40.0-70.0); PLATELET COUNT (AUTO) 390 K/uL (130-430); RED BLOOD CELL COUNT(AUTO) 3.62 MIL/uL (4.2-6.2); RED CELL DISTRIBUTION WIDTH 13.1 % (9.0-15.0); WHITE BLOOD COUNT (AUTO) 12.6 K/uL (4.8-10.8)
[2016-10-13 12:29] LABS: ALBUMIN 1.8 g/dL (3.4-4.8); CREATININE 0.95 mg/dL (0.55-1.30); POTASSIUM 3.6 mmol/L (3.5-5.1); TOTAL BILIRUBIN 0.2 mg/dL (0.0-1.0); TOTAL PROTEIN, SERUM 4.7 g/dL (6.4-8.3)
--- NOTE | 2016-10-13 13:00 | NUR ---
PT: PHYSICAL THERAPIST IN AND WALKED PATIENT .PATIENT IS WABBLY AND BACKING UP AND SAT ON CHAIR AND BACK TO BED AFTER.
--- NOTE | 2016-10-13 14:04 | NUR ---
DISCHARGE PLANNING DC order back to [facility]. Faxed SNF referral to [facility]. Will follow up. Addendum: 10/13/16 at 1616 by Erin ARRIAGA Called [facility] will have admitting return call with bed assignment. Addendum: 10/13/16 at 1621 by Erin ARRIAGA called Theresa in admitting at [facility] left voice message requesting return call back. Addendum: 10/13/16 at 1653 by Erin ARRIAGA Received call from Theresa in admitting at [facility] who transferred call to [facility] who was provided with KIP Connor at [facility] [phone] or [phone]. Theresa stated facility currently making room changed for patient ISO and obtaining insurance auth. Theresa will notify DCP once received. DCP will follow up in AM.
--- NOTE | 2016-10-13 14:10 | NUR ---
KIM RE-EVALUATION: Patient re-evaluated for a low Kim score of 14. Patient was awake, alert, confused and received in a Linda bed with an IsoFlex ANDREE mattress with low air-loss therapy initiated. Patient is unable to turn independently. Skin is fair (-). Recommend reposition patient side to side only every 2 hours with pillow support and off-load pressure areas with pillows for pressure re-distribution. Elevate, off-load and float bilateral heels with pillows. Stool Culture positive for C. Difficile. Use Calmoseptine cream on buttocks, and other moisture susceptible areas QID and as needed for soiling. Perform skin care and monitor skin integrity Q shift. Maintain patient on a low air-loss mattress. Wound care performed by day shift nurse. Data collection provided by ELIAZAR Tillman. Skin Assessment: 1) Buttocks: Redness from IAD, present on admission. 2) Superior Gluteal Sulcus: Moisture lesion. Site has 90% pink tissue, 10% yellow tissue. No odor, no drainage. Area has redness from moisture. Recommend continue: Wash involved areas with mild soap and water. Pat dry. Apply Calmoseptine cream to involved areas QID and as needed for soiling.
--- NOTE | 2016-10-13 15:06 | NUR ---
PHYSICAL THERAPY CO-SIGN The Physical Therapy Progress Notes documented by Postpartum Nurse have been reviewed. I CONCUR W/AUDIO VISUAL DESIGN ENGINEER NOTE; CONT PER TX PLAN Reviewed/Co-Signed by: Lidia Ward PT Documentation Done by: IRMA CR AUDIO VISUAL DESIGN ENGINEER Addendum: 10/13/16 at 1507 by Lidia Ward PT Amended: Links added.
--- NOTE | 2016-10-13 16:02 | NUR ---
POSITION: TURNED TO SIDE. STILL SWOLLEN ALL OVER . BOTH LEGS ELEVATED WITH PILLOWS AND BOTH ARM ELEVATED.
[2016-10-13 16:17] VITALS: BP 131/65; PULSE 78; RESP 20; TEMP 97.8; O2SAT 98
[2016-10-13] MEDS: FLUCONAZOLE 100 mg/ NS 50 ML IV SCH (18:11)
--- NOTE | 2016-10-13 18:40 | NUR ---
CLOSING: PATIENT IS ALERT ,AWAKE, AND ORIENTED TO NAME, AND PLACED. NO C/O OF PAIN. STILL SWOLLEN ALL OVER. BOTH LEGS ELEVATED AND OFF OF BED. DENIES OF SHORTHNESS OF BREATH. CALL LIGHT WITHIN REACH. IV SITE INTACT AND INPLACED ,NO S/S OF INFILTRATION.
[2016-10-13 20:00] VITALS: BP 147/78; PULSE 83; RESP 19; TEMP 97.4; O2SAT 98
--- NOTE | 2016-10-13 20:00 | NUR ---
PM Shift Assessment Received patient lying on low air loss mattress, AAO x1, reoriented x4. No acute distress noted, no complain of pain at this time. Snider catheter noted, secured in place draining urine well to gravity. IV noted to left hand, saline locked at this time, flushes well, no redness or swelling noted to IV site. SCD's noted to BLE. Edema noted, all extremities elevated with pillow support to promote venous return. Education provided for patient not to get out of bed without calling for assistance, she verbalized understanding but remains confused, room near nurse's station for close monitoring. Plan of care discussed with patient and updated on board. Call light is within reach, all fall and safety precautions in place, will continue to monitor for change in patient status.
--- NOTE | 2016-10-13 22:19 | NUR ---
RN Rounds Patient is resting quietly in bed, no acute distress noted. Scheduled medications were administered as ordered per MD, patient tolerated well. Patient was repositioned with pillow support and made comfortable in bed. Assisted with feeding for bedtime snack, patient tolerated well. Call light is within reach, all fall and safety precautions in place, will continue to monitor closely.
[2016-10-14] VITALS (7 sets, daily range): BP systolic 111–144; BP diastolic 54–77; PULSE 76–94; RESP 14–18; TEMP 97–97.9; O2SAT 95–98
--- NOTE | 2016-10-14 00:26 | NUR ---
RN Rounds Patient is resting quietly in bed, no acute distress noted. Patient was repositioned with pillow support and made comfortable in bed. Call light is within reach with soft music for comfort. Call light is within reach, all fall and safety precautions in place, will continue to monitor closely.
--- NOTE | 2016-10-14 02:24 | NUR ---
RN Rounds Patient is resting quietly in bed, no acute distress noted. No complain of pain, denies any needs at this time. Call light is within reach with soft music for comfort. All fall and safety precautions in place, will continue to monitor closely.
--- NOTE | 2016-10-14 04:29 | NUR ---
RN Rounds Patient is resting quietly in bed, no acute distress noted. Snider draining well to gravity. Repositioned patient with pillow support to prevent further skin breakdown and pillows placed under extremities top promote venous return. Call light is within reach, all fall and safety precautions in place, will continue to monitor.
--- NOTE | 2016-10-14 04:51 | NUR ---
Transfer of Care Patient is stable condition, all needs met. Transfer of care was endorsed to RN at bedside via SBAR report.
--- NOTE | 2016-10-14 05:00 | NUR ---
initial nursing notes: Patient is awake and confused. Patient stated that she wanted to get out of the house since she needs to buy something to the store. Reoriented patient to place, time and reason for being in the hospital. Kept bed alarm on and siderails up X 3 for patient's safety.
[2016-10-14] MEDS: metroNIDAZOLE 500 MG TABLET PO SCH ×2 (06:07→14:39)
--- NOTE | 2016-10-14 07:30 | NUR ---
am rounds: patient sleeping during rounds. on contact isolation,precaution rendered. iv saline lock. continue to monitor.
--- NOTE | 2016-10-14 07:53 | NUR ---
closing nursing notes: Patient is awake and alert. Patient is in no acute respiratory distress. No episodes of fall and no injuries. Provided nursing report to incoming morning shift nurse, DARIEN Brandon, at patient's bedside.
[2016-10-14] MEDS: CARBIDOPA/LEVODOPA 25/100 MG TABLET PO SCH ×3 (09:13→20:01)
[2016-10-14] MEDS: DOCUSATE SODIUM 100 MG CAPSULE PO SCH ×2 (09:13→20:01)
[2016-10-14] MEDS: PANTOPRAZOLE SODIUM 40 MG TAB PO SCH (09:14)
[2016-10-14] MEDS: CARVEDILOL 6.25 MG TABLET (COREG) PO SCH ×2 (09:14→20:00)
[2016-10-14] MEDS: ASPIRIN 325 MG TABLET PO SCH (09:14)
[2016-10-14] MEDS: POTASSIUM CHLORIDE 20 MEQ TAB.PRT.SR PO SCH (09:15)
[2016-10-14] MEDS: SERTRALINE HCL 50 MG TABLET PO SCH (09:15)
[2016-10-14] MEDS: IPRATROPIUM BROM 0.5 MG/2.5 ML VIAL.NEB (ATROVENT) INH SCH ×4 (09:20→19:45)
[2016-10-14] MEDS: ALBUTEROL SULFATE 0.083% 2.5 MG/3 ML VIAL.NEB INH SCH ×4 (09:20→19:45)
[2016-10-14] MEDS: ARIPiprazole 2 MG TAB PO SCH (09:29)
[2016-10-14] MEDS: MUPIROCIN 2% TOPICAL OINTMENT 22 GM TP SCH ×2 (09:30→20:01)
[2016-10-14] MEDS: MENTHOL/ZINC OXIDE 113 GM OINT. TP SCH ×4 (09:30→20:01)
--- NOTE | 2016-10-14 10:20 | NUR ---
rounds: resting. no distress.
--- NOTE | 2016-10-14 12:17 | NUR ---
DISCHARGE PLANNING Spoke with Onelia at [facility] who stated still pending insurance auth. Mary stated calls and messages have been left for KIP Connor at [facility] [phone] with no return call back. Called [facility] [phone] call got transferred to Geeta left voice message requesting return call back. Called [facility] [phone] call got transferred to Yadi who stated KIP Connor can be called directly at [phone], left voice message requesting return call back. Faxed request [phone] requested to return call to discuss discharge planning for patient. DCP will follow up. Addendum: 10/14/16 at 1305 by Erin Bach DP Received call back from KIP Connor at [facility] who confirmed her new direct phone number [phone] and stated will forward insurance auth to [facility] for patient discharge. Called [facility] spoke with Taisha in admitting who will return call with bed assignment once insurance auth has been received. DCP will continue to follow up. Addendum: 10/14/16 at 1453 by Erin Bach DP Spoke with Taisha at [facility] received patient assigned to room 108B RN to report [phone] bed available after 6pm. SSW will notify family. Called [facility] ambulance [phone] spoke with Eleonora arranged S transport orange picker 6pm. DARIEN Brandon made aware.
--- NOTE | 2016-10-14 12:22 | NUR ---
ROUNDS: RESTING. NO DISTRESS.
--- NOTE | 2016-10-14 14:25 | NUR ---
rounds: sleeping during rounds. stable.
--- NOTE | 2016-10-14 14:43 | NUR ---
Social Service/Discharge Planning Note: [employer] placed call to pt's dtr; [employer] alerted pt's dtr that pt has been accepted back to [facility]; pt's dtr is agreeable to pt's transfer. [employer] updated DC land use planner that pt's dtr is agreeable.
--- NOTE | 2016-10-14 15:16 | NUR ---
PHYSICAL THERAPY CO-SIGN The Physical Therapy Progress Notes documented by Chuck Wagon Cook have been reviewed. I CONCUR W/HEALTHCARE ADMINISTRATOR NOTE Reviewed/Co-Signed by: Lidia Ward PT Documentation Done by: IRMA CR HEALTHCARE ADMINISTRATOR PT WEEKLY SUMMARY Pt IS SHOWING PROGRESS WITH POC; WILL CONT TO BENEFIT W/PT TO ADDRESS FUNCTIONAL DEFICITS; CONT WITH CURRENT TX PLAN, ONCE DAILY 5X/WK X 1WEEK. Addendum: 10/14/16 at 1517 by Lidia Ward PT Amended: Links added.
--- NOTE | 2016-10-14 16:13 | NUR ---
PHOTO/WOUND CARE: CLEANSE NS THE SACRAL WOUND AREA,HYDROGEL ON WOUND BED AND CALMOSEPTINE TO REDNESS AREA,COVERED WITH SACRAL OPTIFOAM.PHOTOS TAKEN AT SACRAL WOUND AREA AND ATTACHED TO CHART.
--- NOTE | 2016-10-14 16:45 | NUR ---
rn notes: left message c/o laurie yates pt's daughter p#[phone].
--- NOTE | 2016-10-14 17:15 | NUR ---
report: report given to loretta chou rn from [email or web address] with pt's daughter laurie,confirmed that pt does not have any jewelry's present ,boots red purse upon admission.
--- NOTE | 2016-10-14 18:32 | NUR ---
CLOSING NOTES: PATIENT STABLE. READY FOR TRANSFER TO [facility].RECEIVED CALL FROM NEMO PEARSON , SILK FINISHER TIME MOVED IN AN HOUR AND A HALF. CONTINUE TO MONITOR.
[2016-10-14] MEDS: FLUCONAZOLE 100 mg/ NS 50 ML IV SCH (18:49)
--- NOTE | 2016-10-14 20:25 | NUR ---
D/C Patient Patient given medication reconciliation form and D/C instructions. Exit Care provided. Patient verbalized understanding. MD discussed with patient the results and treatment patient picked up by [facility] ambulance, and is going back to [facility]. Patient in stable condition, ID band removed. IV in place to continue IV antibiotics. Patient educated on pain management. All belongings sent with patient.
== END 2016-10-14 20:25 | DRG 871 ==
LOC: SED 21:22 → UNDOADMIN 23:55 → STU 23:55 → SMU 10-13 22:13 → UNDODISIN 10-14 20:25
PROVIDERS: ADMIT Internal Medicine Hospice and Palliative Medicine; ATTEND Internal Medicine Hospice and Palliative Medicine
DX: A41.9 Sepsis, unspecified organism (principal); G93.41 Metabolic encephalopathy; J96.90 Respiratory failure, unspecified, unspecified whether with hypoxia or hypercapnia; N17.0 Acute kidney failure with tubular necrosis; A04.7 Enterocolitis due to Clostridium difficile; B37.49 Other urogenital candidiasis; E46 Unspecified protein-calorie malnutrition; E87.0 Hyperosmolality and hypernatremia; F31.60 Bipolar disorder, current episode mixed, unspecified; I13.0 Hypertensive heart and chronic kidney disease with heart failure and stage 1 through stage 4 chronic kidney disease, or unspecified chronic kidney disease; I50.9 Heart failure, unspecified; E11.22 Type 2 diabetes mellitus with diabetic chronic kidney disease; E86.0 Dehydration; E87.6 Hypokalemia; F02.80 Dementia in other diseases classified elsewhere, unspecified severity, without behavioral disturbance, psychotic disturbance, mood disturbance, and anxiety; F22 Delusional disorders; G20 Parkinson's disease; G47.33 Obstructive sleep apnea (adult) (pediatric); I25.10 Atherosclerotic heart disease of native coronary artery without angina pectoris; J44.9 Chronic obstructive pulmonary disease, unspecified; I25.5 Ischemic cardiomyopathy; N18.3 Chronic kidney disease, stage 3 (moderate); I25.2 Old myocardial infarction; Z22.322 Carrier or suspected carrier of Methicillin resistant Staphylococcus aureus; Z78.9 Other specified health status; Z82.0 Family history of epilepsy and other diseases of the nervous system; Z82.3 Family history of stroke; Z82.5 Family history of asthma and other chronic lower respiratory diseases; Z87.440 Personal history of urinary (tract) infections; Z90.49 Acquired absence of other specified parts of digestive tract; Z90.710 Acquired absence of both cervix and uterus; Z88.8 Allergy status to other drugs, medicaments and biological substances; Z83.1 Family history of other infectious and parasitic diseases; Z79.82 Long term (current) use of aspirin
CPT/HCPCS: 36415; 36600; 70450-TC; 71010; 76770; 80053; 81000-TC; 82607; 82746; 82803-TC; 82962; 83605; 83735-TC; 83880; 84484; 85007; 85025; 85027; 85610-TC; 85730-TC; 87040-TC; 87081; 87086; 87230-TC; 93005; 94640; 94760; 96361; 96365; 97110-GP; 97116-GP; 97530-GP; 99285; J0696; J1450; J2543; J3370; J3490; J7030; J7042; J7050; J7060; J7120

== ENCOUNTER 2016-11-29 15:12 | Inpatient (IN) | payer OTHER ==
[~2016-11-29] VITALS: Ht 162.6 cm; Wt 63.5 kg
[~2016-11-29 15:12] MED LIST changes: +ALBU2.5V7 INH; +ASPI325T2 PO; -ATOR40TA68 PO; -BACL10TA PO; +CARB25TA3 PO; +CARV6.2554 PO; -COR12.5 PO; +DOCU-144 PO; +DULR10 RC; -ERGO8000; +FURO40TA5 PO; -GLIM1TAB PO; +LORA-258 PO; +LOVI40 SQ; +MAGN400O4 PO; -NOR10 PO; +ONDA4TAB5 PO; +POTA20TA83 PO; +PRO40 PO; +SENN8.6T19 PO; -VALS80TA2 PO; -VENL75TA4 PO
[2016-11-29 15:17] VITALS: BP_SYST 141
[2016-11-29] MEDS ORDERED: NACL 0.9% 1,000 ML IV SCH (15:34)
[2016-11-29] MEDS ORDERED: PANTOPRAZOLE SODIUM 40 MG/VIAL (PROTONIX) IVP ONE (15:45)
[2016-11-29 16:26] LABS: BASOPHILS # (AUTO) 0.1 K/uL (0.0-0.2); BASOPHILS % (AUTO) 0.6 % (0.0-2.0); EOSINOPHILS # (AUTO) 0.3 K/uL (0.0-0.4); EOSINOPHILS % (AUTO) 1.9 % (0.0-4.0); HEMATOCRIT 38.2 % (36-48); HEMOGLOBIN 12.1 g/dL (12.0-16.0); LYMPHOCYTES # (AUTO) 2.7 K/uL (1.0-5.5); LYMPHOCYTES % (AUTO) 19.9 % (20.5-51.5); MEAN CORPUSCULAR HEMOGLOBIN 27 pg (27-31); MEAN CORPUSCULAR HGB CONC 32 % (32-36); MEAN CORPUSCULAR VOLUME 85 fL (79.0-98.0); MONOCYTES # (AUTO) 1.1 K/uL (0.0-1.0); MONOCYTES % (AUTO) 8.2 % (1.7-9.3); NEUTROPHILS # (AUTO) 9.3 K/uL (1.8-7.7); NEUTROPHILS % (AUTO) 69.4 % (40.0-70.0); PLATELET COUNT (AUTO) 397 K/uL (130-430); RED BLOOD CELL COUNT(AUTO) 4.47 MIL/uL (4.2-6.2); RED CELL DISTRIBUTION WIDTH 14.8 % (9.0-15.0); WHITE BLOOD COUNT (AUTO) 13.5 K/uL (4.8-10.8)
[2016-11-29 16:58] LABS: CALCIUM 8.8 mg/dL (8.4-11.0); CREATININE 1.12 mg/dL (0.55-1.30); POTASSIUM 3.7 mmol/L (3.5-5.1)
[2016-11-29 17:03] LABS: ALBUMIN 2.6 g/dL (3.4-4.8); TOTAL BILIRUBIN 0.3 mg/dL (0.0-1.0); TOTAL PROTEIN, SERUM 7.3 g/dL (6.4-8.3)
[2016-11-29] MEDS ORDERED: cefTRIAXone 1 GM IVPB PREMIX 50 ML IV ONE (17:45)
[2016-11-29 18:18] LABS: HEMATOCRIT 35.1 % (36-48); HEMOGLOBIN 11.3 g/dL (12.0-16.0)
[2016-11-29 18:19] LABS: BILIRUBIN,URINE NEGATIVE (NEGATIVE); BLOOD, URINE 2+ (NEGATIVE); CLARITY/URINE CLEAR (CLEAR); COLOR,URINE YELLOW (YELLOW); GLUCOSE,URINE NEGATIVE (NEGATIVE); KETONES,URINE NEGATIVE (NEGATIVE); LEUKOCYTE ESTERASE ,URINE 1+ (NEGATIVE); NITRITE, URINE POSITIVE (NEGATIVE); PROTEIN URINE NEGATIVE (NEGATIVE); UROBILINOGEN,URINE 0.2 (0.2-1.0)
[2016-11-29 18:34] LABS: BACTERIA,URINE FEW /HPF (None Seen); CALCIUM OXALATE CRYSTALS,UR 0-10 /HPF (None Seen); YEAST,URINE Rare /HPF (None Seen)
[2016-11-29] MEDS ORDERED: ACET-2165 PO (18:43)
[2016-11-29] MEDS ORDERED: MULT-1184 PO (18:43)
[2016-11-29] MEDS ORDERED: ASCO500T20 PO (18:43)
[2016-11-29] MEDS ORDERED: LATA2.5D6 OP (18:43)
[2016-11-29] MEDS ORDERED: CIPR-172 PO (18:43)
[2016-11-29] MEDS ORDERED: IPRA4AER INH (18:43)
[2016-11-29 19:06] VITALS: BP_SYST 108
[2016-11-29 19:30] VITALS: BP_SYST 108
[2016-11-29 20:22] VITALS: BP_SYST 108
[2016-11-29] MEDS ORDERED: LORazepam 1 MG TABLET PO PRN (21:45)
[2016-11-29] MEDS ORDERED: MILK OF MAGNESIA 30 ML UDC PO PRN (21:45)
[2016-11-29] MEDS ORDERED: D5LR 1,000 ML IV SCH (22:00)
[2016-11-29] MEDS ORDERED: LEVOFLOXACIN 500 MG/D5W 100 ML IV SCH (22:00)
[2016-11-29] MEDS ORDERED: IPRATROPIUM/ALBUTEROL SULFATE 3 ML AMPUL.NEB INH PRN (22:15)
[2016-11-29] MEDS ORDERED: LEVOFLOXACIN 500 MG/D5W 100 ML IV ONE (22:59)
[2016-11-30] VITALS (7 sets, daily range): BP systolic 106–139
[2016-11-30 06:30] LABS: BASOPHILS # (AUTO) 0.1 K/uL (0.0-0.2); BASOPHILS % (AUTO) 0.8 % (0.0-2.0); EOSINOPHILS # (AUTO) 0.4 K/uL (0.0-0.4); EOSINOPHILS % (AUTO) 3.4 % (0.0-4.0); HEMATOCRIT 33.3 % (36-48); LYMPHOCYTES # (AUTO) 2.3 K/uL (1.0-5.5); MEAN CORPUSCULAR HEMOGLOBIN 28 pg (27-31); MEAN CORPUSCULAR HGB CONC 33 % (32-36); MEAN CORPUSCULAR VOLUME 85 fL (79.0-98.0); MONOCYTES # (AUTO) 0.8 K/uL (0.0-1.0); MONOCYTES % (AUTO) 7.4 % (1.7-9.3); NEUTROPHILS # (AUTO) 7.2 K/uL (1.8-7.7); NEUTROPHILS % (AUTO) 67.4 % (40.0-70.0); PLATELET COUNT (AUTO) 320 K/uL (130-430); RED BLOOD CELL COUNT(AUTO) 3.93 MIL/uL (4.2-6.2); RED CELL DISTRIBUTION WIDTH 14.8 % (9.0-15.0); WHITE BLOOD COUNT (AUTO) 10.8 K/uL (4.8-10.8)
[2016-11-30 06:58] LABS: ALBUMIN 2.4 g/dL (3.4-4.8); CALCIUM 8.8 mg/dL (8.4-11.0); CREATININE 0.97 mg/dL (0.55-1.30); POTASSIUM 3.3 mmol/L (3.5-5.1); TOTAL BILIRUBIN 0.3 mg/dL (0.0-1.0); TOTAL PROTEIN, SERUM 6.7 g/dL (6.4-8.3)
[2016-11-30 07:08] LABS: IRON (SERUM) 33 mcg/dL (37-145); TOTAL IRON BIND. CAPACITY 165 ug/dL (250-450)
[2016-11-30] MEDS: D5LR 1,000 ML IV SCH ×3 (07:48→23:45)
[2016-11-30] MEDS: ARIPiprazole 2 MG TAB PO SCH (09:00)
[2016-11-30] MEDS ORDERED: CARBIDOPA PO SCH (09:00)
[2016-11-30] MEDS: SERTRALINE HCL 50 MG TABLET PO SCH (09:00)
[2016-11-30] MEDS: POTASSIUM CHLORIDE 20 MEQ TAB.PRT.SR PO SCH (09:00)
[2016-11-30] MEDS: ASPIRIN 325 MG TABLET PO SCH (09:00)
[2016-11-30] MEDS: CARVEDILOL 6.25 MG TABLET (COREG) PO SCH ×2 (09:00→21:38)
[2016-11-30] MEDS: ASCORBIC ACID 500 MG TABLET PO SCH (09:00)
[2016-11-30] MEDS ORDERED: PANTOPRAZOLE SODIUM 40 MG TAB PO SCH (09:00)
[2016-11-30] MEDS ORDERED: POTASSIUM CHLORIDE 40 MEQ, LIDOCAINE JECT 2% PF 100 MG 50 MG in NS 250 ML IV ONE (11:15)
[2016-11-30] MEDS: PANTOPRAZOLE SODIUM 40 MG/VIAL (PROTONIX) IVP SCH ×2 (11:20→21:37)
[2016-11-30] MEDS: metroNIDAZOLE 500 mg/NS 100 ML IV SCH ×2 (14:24→21:38)
[2016-11-30] MEDS: VANCOMYCIN HCL 250 MG CAPSULE PO SCH ×3 (14:30→21:38)
[2016-11-30] MEDS: ACETAMINOPHEN 325 MG TABLET PO PRN (15:25)
[2016-11-30 17:49] LABS: BASOPHILS # (AUTO) 0.1 K/uL (0.0-0.2); BASOPHILS % (AUTO) 0.6 % (0.0-2.0); EOSINOPHILS # (AUTO) 0.3 K/uL (0.0-0.4); EOSINOPHILS % (AUTO) 2.3 % (0.0-4.0); HEMATOCRIT 37.2 % (36-48); HEMOGLOBIN 11.9 g/dL (12.0-16.0); LYMPHOCYTES # (AUTO) 2.8 K/uL (1.0-5.5); LYMPHOCYTES % (AUTO) 23.2 % (20.5-51.5); MEAN CORPUSCULAR HEMOGLOBIN 28 pg (27-31); MEAN CORPUSCULAR HGB CONC 32 % (32-36); MONOCYTES # (AUTO) 0.8 K/uL (0.0-1.0); MONOCYTES % (AUTO) 6.7 % (1.7-9.3); NEUTROPHILS # (AUTO) 7.9 K/uL (1.8-7.7); NEUTROPHILS % (AUTO) 67.2 % (40.0-70.0); PLATELET COUNT (AUTO) 332 K/uL (130-430); RED CELL DISTRIBUTION WIDTH 14.6 % (9.0-15.0); WHITE BLOOD COUNT (AUTO) 11.9 K/uL (4.8-10.8)
[2016-11-30 17:51] LABS: MEAN CORPUSCULAR VOLUME 87 fL (79.0-98.0)
[2016-11-30] MEDS ORDERED: cefTRIAXone 1 GM IVPB PREMIX 50 ML IV SCH (18:00)
[2016-11-30] MEDS: LATANOPROST 2.5 ML DROPS (XALATAN) OP SCH (21:37)
[2016-11-30] MEDS ORDERED: GOLYTELY / COLYTE SOLUTION 4 LITERS PO ONE (22:00)
[2016-12-01] VITALS: BP_SYST 134
[2016-12-01 03:19] VITALS: BP_SYST 126
[2016-12-01] MEDS: metroNIDAZOLE 500 mg/NS 100 ML IV SCH ×2 (05:23→15:02)
[2016-12-01 06:39] LABS: BASOPHILS # (AUTO) 0.1 K/uL (0.0-0.2); BASOPHILS % (AUTO) 1.2 % (0.0-2.0); EOSINOPHILS # (AUTO) 0.2 K/uL (0.0-0.4); EOSINOPHILS % (AUTO) 2.2 % (0.0-4.0); HEMOGLOBIN 10.3 g/dL (12.0-16.0); LYMPHOCYTES % (AUTO) 19.4 % (20.5-51.5); MEAN CORPUSCULAR HEMOGLOBIN 28 pg (27-31); MEAN CORPUSCULAR HGB CONC 32 % (32-36); MEAN CORPUSCULAR VOLUME 86 fL (79.0-98.0); MONOCYTES # (AUTO) 0.8 K/uL (0.0-1.0); MONOCYTES % (AUTO) 7.8 % (1.7-9.3); NEUTROPHILS # (AUTO) 7.3 K/uL (1.8-7.7); NEUTROPHILS % (AUTO) 69.4 % (40.0-70.0); PLATELET COUNT (AUTO) 290 K/uL (130-430); RED BLOOD CELL COUNT(AUTO) 3.73 MIL/uL (4.2-6.2); RED CELL DISTRIBUTION WIDTH 14.8 % (9.0-15.0); WHITE BLOOD COUNT (AUTO) 10.4 K/uL (4.8-10.8)
[2016-12-01 07:31] LABS: CALCIUM 8.1 mg/dL (8.4-11.0); CREATININE 0.97 mg/dL (0.55-1.30); FREE T4 (FREE THYROXINE) 0.9 ng/dL (0.6-1.6); THYROID STIMULATING HORMONE 3.08 uIu/mL (0.34-4.82)
[2016-12-01 07:51] VITALS: BP_SYST 121
[2016-12-01] MEDS: SERTRALINE HCL 50 MG TABLET PO SCH (09:00)
[2016-12-01] MEDS: PANTOPRAZOLE SODIUM 40 MG/VIAL (PROTONIX) IVP SCH ×2 (09:27→22:00)
[2016-12-01] MEDS: ASCORBIC ACID 500 MG TABLET PO SCH (09:28)
[2016-12-01] MEDS: ASPIRIN 325 MG TABLET PO SCH (09:28)
[2016-12-01] MEDS: CARVEDILOL 6.25 MG TABLET (COREG) PO SCH ×2 (09:29→22:01)
[2016-12-01] MEDS: VANCOMYCIN HCL 250 MG CAPSULE PO SCH ×4 (09:51→22:01)
[2016-12-01] MEDS: POTASSIUM CHLORIDE 20 MEQ TAB.PRT.SR PO SCH ×2 (09:51→22:00)
[2016-12-01] MEDS: ARIPiprazole 2 MG TAB PO SCH (09:51)
[2016-12-01] MEDS: D5LR 1,000 ML IV SCH (10:12)
[2016-12-01] MEDS ORDERED: MIDAZOLAM HCL 5 MG/5 ML VIAL ONE ×2 (10:40→10:41)
[2016-12-01] MEDS ORDERED: fentaNYL CITRATE/PF 100 MCG/2 ML AMP ONE (10:41)
[2016-12-01] MEDS ORDERED: DIATR MEGLU/DIATRIZ SOD 30 ML SOLUTION PO ONE (11:21)
[2016-12-01 12:54] VITALS: BP_SYST 122
[2016-12-01 16:59] VITALS: BP_SYST 117
[2016-12-01] MEDS ORDERED: POTASSIUM CHLORIDE 20 MEQ TAB.PRT.SR PO ONE (17:30)
[2016-12-01] MEDS ORDERED: PIPERACILLIN/TAZO 3.375/DEX-IS 50 ML IV SCH (18:00)
[2016-12-01] MEDS ORDERED: LACTOBACILLUS RHAMNOSUS GG 1 CAP CAPSULE PO ONE (18:00)
[2016-12-01] MEDS ORDERED: ERTAPENEM SODIUM 1 GM/VIAL (INVANZ) ONE (21:23)
[2016-12-01] MEDS: LATANOPROST 2.5 ML DROPS (XALATAN) OP SCH (22:01)
[2016-12-01] MEDS: LACTOBACILLUS RHAMNOSUS GG 1 CAP CAPSULE PO SCH (22:01)
[2016-12-01] MEDS: ERTAPENEM SODIUM 0.5 GM in NS 50 ML IV SCH (22:02)
[2016-12-02] VITALS (7 sets, daily range): BP systolic 112–137
[2016-12-02] MEDS: D5LR 1,000 ML IV SCH ×3 (03:57→13:22)
[2016-12-02 06:44] LABS: CALCIUM 8.3 mg/dL (8.4-11.0); CREATININE 0.92 mg/dL (0.55-1.30)
[2016-12-02 06:55] LABS: BASOPHILS # (AUTO) 0.1 K/uL (0.0-0.2); EOSINOPHILS # (AUTO) 0.5 K/uL (0.0-0.4); EOSINOPHILS % (AUTO) 5.2 % (0.0-4.0); HEMOGLOBIN 10.4 g/dL (12.0-16.0); LYMPHOCYTES % (AUTO) 19.8 % (20.5-51.5); MEAN CORPUSCULAR HEMOGLOBIN 28 pg (27-31); MEAN CORPUSCULAR HGB CONC 33 % (32-36); MEAN CORPUSCULAR VOLUME 85 fL (79.0-98.0); MONOCYTES # (AUTO) 0.7 K/uL (0.0-1.0); PLATELET COUNT (AUTO) 278 K/uL (130-430); RED BLOOD CELL COUNT(AUTO) 3.77 MIL/uL (4.2-6.2); RED CELL DISTRIBUTION WIDTH 14.8 % (9.0-15.0); WHITE BLOOD COUNT (AUTO) 10.3 K/uL (4.8-10.8)
[2016-12-02] MEDS: ARIPiprazole 2 MG TAB PO SCH (08:09)
[2016-12-02] MEDS: ASCORBIC ACID 500 MG TABLET PO SCH (08:10)
[2016-12-02] MEDS: ASPIRIN 325 MG TABLET PO SCH (08:10)
[2016-12-02] MEDS: VANCOMYCIN HCL 250 MG CAPSULE PO SCH ×4 (08:11→21:03)
[2016-12-02] MEDS: LACTOBACILLUS RHAMNOSUS GG 1 CAP CAPSULE PO SCH ×2 (08:11→21:03)
[2016-12-02] MEDS: SERTRALINE HCL 50 MG TABLET PO SCH (08:11)
[2016-12-02] MEDS: POTASSIUM CHLORIDE 20 MEQ TAB.PRT.SR PO SCH ×2 (08:11→21:04)
[2016-12-02] MEDS: CARVEDILOL 6.25 MG TABLET (COREG) PO SCH ×2 (08:12→21:04)
[2016-12-02] MEDS: PANTOPRAZOLE SODIUM 40 MG/VIAL (PROTONIX) IVP SCH ×2 (08:12→21:43)
[2016-12-02] MEDS: LATANOPROST 2.5 ML DROPS (XALATAN) OP SCH (21:03)
[2016-12-03] VITALS (7 sets, daily range): BP systolic 124–144
[2016-12-03] MEDS: D5LR 1,000 ML IV SCH ×3 (00:42→16:31)
[2016-12-03] MEDS: ERTAPENEM SODIUM 0.5 GM in NS 50 ML IV SCH ×2 (00:43→21:47)
[2016-12-03] MEDS: SERTRALINE HCL 50 MG TABLET PO SCH (09:29)
[2016-12-03] MEDS: ASPIRIN 325 MG TABLET PO SCH (09:29)
[2016-12-03] MEDS: VANCOMYCIN HCL 250 MG CAPSULE PO SCH ×4 (09:30→21:48)
[2016-12-03] MEDS: POTASSIUM CHLORIDE 20 MEQ TAB.PRT.SR PO SCH ×2 (09:30→21:48)
[2016-12-03] MEDS: ASCORBIC ACID 500 MG TABLET PO SCH (09:30)
[2016-12-03] MEDS: LACTOBACILLUS RHAMNOSUS GG 1 CAP CAPSULE PO SCH ×2 (09:30→21:47)
[2016-12-03] MEDS: BALSAM PERU/CASTOR OIL 60 GM OINT...G. TP SCH (09:31)
[2016-12-03] MEDS: CARVEDILOL 6.25 MG TABLET (COREG) PO SCH ×2 (09:31→21:48)
[2016-12-03] MEDS: ARIPiprazole 2 MG TAB PO SCH (09:31)
[2016-12-03] MEDS: PANTOPRAZOLE SODIUM 40 MG/VIAL (PROTONIX) IVP SCH ×2 (09:32→21:47)
[2016-12-03 13:25] LABS: BASOPHILS # (AUTO) 0.1 K/uL (0.0-0.2); BASOPHILS % (AUTO) 0.6 % (0.0-2.0); EOSINOPHILS # (AUTO) 0.8 K/uL (0.0-0.4); EOSINOPHILS % (AUTO) 6.8 % (0.0-4.0); HEMATOCRIT 32.9 % (36-48); HEMOGLOBIN 10.7 g/dL (12.0-16.0); LYMPHOCYTES # (AUTO) 2.5 K/uL (1.0-5.5); LYMPHOCYTES % (AUTO) 20.3 % (20.5-51.5); MEAN CORPUSCULAR HEMOGLOBIN 27 pg (27-31); MEAN CORPUSCULAR HGB CONC 33 % (32-36); MEAN CORPUSCULAR VOLUME 84 fL (79.0-98.0); MONOCYTES # (AUTO) 0.6 K/uL (0.0-1.0); MONOCYTES % (AUTO) 5.1 % (1.7-9.3); NEUTROPHILS # (AUTO) 8.3 K/uL (1.8-7.7); NEUTROPHILS % (AUTO) 67.2 % (40.0-70.0); PLATELET COUNT (AUTO) 308 K/uL (130-430); RED BLOOD CELL COUNT(AUTO) 3.91 MIL/uL (4.2-6.2); RED CELL DISTRIBUTION WIDTH 14.9 % (9.0-15.0); WHITE BLOOD COUNT (AUTO) 12.3 K/uL (4.8-10.8)
[2016-12-03 13:26] LABS: CALCIUM 8.4 mg/dL (8.4-11.0); CREATININE 0.83 mg/dL (0.55-1.30); POTASSIUM 3.9 mmol/L (3.5-5.1)
[2016-12-03] MEDS ORDERED: FLUCONAZOLE 200 mg/ NS 100 ML IV ONE (18:00)
[2016-12-03] MEDS: LATANOPROST 2.5 ML DROPS (XALATAN) OP SCH (21:48)
[2016-12-04 00:07] VITALS: BP_SYST 126
[2016-12-04 04:30] VITALS: BP_SYST 133
[2016-12-04] MEDS: D5LR 1,000 ML IV SCH ×2 (05:40→14:46)
[2016-12-04 08:20] VITALS: BP_SYST 138
[2016-12-04] MEDS: PANTOPRAZOLE SODIUM 40 MG/VIAL (PROTONIX) IVP SCH ×2 (10:01→22:02)
[2016-12-04] MEDS: POTASSIUM CHLORIDE 20 MEQ TAB.PRT.SR PO SCH ×2 (10:02→22:03)
[2016-12-04] MEDS: CARVEDILOL 6.25 MG TABLET (COREG) PO SCH ×2 (10:02→22:05)
[2016-12-04] MEDS: SERTRALINE HCL 50 MG TABLET PO SCH (10:02)
[2016-12-04] MEDS: ASPIRIN 325 MG TABLET PO SCH (10:02)
[2016-12-04] MEDS: ARIPiprazole 2 MG TAB PO SCH (10:02)
[2016-12-04] MEDS: ASCORBIC ACID 500 MG TABLET PO SCH (10:02)
[2016-12-04] MEDS: BALSAM PERU/CASTOR OIL 60 GM OINT...G. TP SCH (10:03)
[2016-12-04] MEDS: LACTOBACILLUS RHAMNOSUS GG 1 CAP CAPSULE PO SCH ×2 (10:03→22:03)
[2016-12-04] MEDS: VANCOMYCIN HCL 250 MG CAPSULE PO SCH ×4 (11:25→22:02)
[2016-12-04 12:00] VITALS: BP_SYST 136
[2016-12-04 16:00] VITALS: BP_SYST 149
[2016-12-04 20:10] VITALS: BP_SYST 123
[2016-12-04] MEDS: ERTAPENEM SODIUM 0.5 GM in NS 50 ML IV SCH (22:02)
[2016-12-04] MEDS: LATANOPROST 2.5 ML DROPS (XALATAN) OP SCH (22:03)
[2016-12-05] VITALS (7 sets, daily range): BP systolic 126–156
[2016-12-05] MEDS: D5LR 1,000 ML IV SCH ×3 (06:14→21:54)
[2016-12-05] MEDS: PANTOPRAZOLE SODIUM 40 MG/VIAL (PROTONIX) IVP SCH ×2 (10:06→21:52)
[2016-12-05] MEDS: LACTOBACILLUS RHAMNOSUS GG 1 CAP CAPSULE PO SCH ×2 (10:07→21:53)
[2016-12-05] MEDS: ARIPiprazole 2 MG TAB PO SCH (10:07)
[2016-12-05] MEDS: ASPIRIN 325 MG TABLET PO SCH (10:07)
[2016-12-05] MEDS: SERTRALINE HCL 50 MG TABLET PO SCH (10:08)
[2016-12-05] MEDS: CARVEDILOL 6.25 MG TABLET (COREG) PO SCH ×2 (10:08→21:53)
[2016-12-05] MEDS: ASCORBIC ACID 500 MG TABLET PO SCH (10:08)
[2016-12-05] MEDS: POTASSIUM CHLORIDE 20 MEQ TAB.PRT.SR PO SCH ×2 (10:09→21:53)
[2016-12-05] MEDS: VANCOMYCIN HCL 250 MG CAPSULE PO SCH ×4 (11:15→21:52)
[2016-12-05] MEDS: ACETAMINOPHEN 325 MG TABLET PO PRN ×2 (11:15→16:20)
[2016-12-05] MEDS: BALSAM PERU/CASTOR OIL 60 GM OINT...G. TP SCH (11:16)
[2016-12-05 14:39] LABS: BASOPHILS # (AUTO) 0.1 K/uL (0.0-0.2); BASOPHILS % (AUTO) 0.8 % (0.0-2.0); EOSINOPHILS # (AUTO) 0.6 K/uL (0.0-0.4); EOSINOPHILS % (AUTO) 7.4 % (0.0-4.0); HEMATOCRIT 33.3 % (36-48); HEMOGLOBIN 10.8 g/dL (12.0-16.0); LYMPHOCYTES # (AUTO) 2.2 K/uL (1.0-5.5); MEAN CORPUSCULAR HEMOGLOBIN 27 pg (27-31); MEAN CORPUSCULAR HGB CONC 32 % (32-36); MEAN CORPUSCULAR VOLUME 85 fL (79.0-98.0); MONOCYTES # (AUTO) 0.4 K/uL (0.0-1.0); MONOCYTES % (AUTO) 5.2 % (1.7-9.3); NEUTROPHILS # (AUTO) 5.1 K/uL (1.8-7.7); NEUTROPHILS % (AUTO) 60.6 % (40.0-70.0); PLATELET COUNT (AUTO) 295 K/uL (130-430); RED BLOOD CELL COUNT(AUTO) 3.94 MIL/uL (4.2-6.2); RED CELL DISTRIBUTION WIDTH 14.9 % (9.0-15.0); WHITE BLOOD COUNT (AUTO) 8.4 K/uL (4.8-10.8)
[2016-12-05 14:48] LABS: CALCIUM 8.7 mg/dL (8.4-11.0); CREATININE 0.79 mg/dL (0.55-1.30); POTASSIUM 4.1 mmol/L (3.5-5.1)
[2016-12-05] MEDS: ERTAPENEM SODIUM 0.5 GM in NS 50 ML IV SCH (21:52)
[2016-12-05] MEDS: LATANOPROST 2.5 ML DROPS (XALATAN) OP SCH (22:04)
[2016-12-06 00:19] VITALS: BP_SYST 126
[2016-12-06 04:00] VITALS: BP_SYST 136
[2016-12-06] MEDS: D5LR 1,000 ML IV SCH ×2 (07:01→21:37)
[2016-12-06] MEDS: ASCORBIC ACID 500 MG TABLET PO SCH (10:00)
[2016-12-06] MEDS: ARIPiprazole 2 MG TAB PO SCH (10:00)
[2016-12-06] MEDS: LACTOBACILLUS RHAMNOSUS GG 1 CAP CAPSULE PO SCH ×2 (10:00→21:39)
[2016-12-06] MEDS: ASPIRIN 325 MG TABLET PO SCH (10:00)
[2016-12-06] MEDS: POTASSIUM CHLORIDE 20 MEQ TAB.PRT.SR PO SCH ×2 (10:00→21:40)
[2016-12-06] MEDS: VANCOMYCIN HCL 250 MG CAPSULE PO SCH ×3 (10:00→21:40)
[2016-12-06] MEDS: PANTOPRAZOLE SODIUM 40 MG/VIAL (PROTONIX) IVP SCH (10:01)
[2016-12-06] MEDS: CARVEDILOL 6.25 MG TABLET (COREG) PO SCH ×2 (10:01→21:39)
[2016-12-06] MEDS: SERTRALINE HCL 50 MG TABLET PO SCH (10:01)
[2016-12-06 12:29] VITALS: BP_SYST 129
[2016-12-06 17:02] VITALS: BP_SYST 144
[2016-12-06] MEDS: BALSAM PERU/CASTOR OIL 60 GM OINT...G. TP SCH (18:39)
[2016-12-06 19:50] VITALS: BP_SYST 126
[2016-12-06] MEDS: LATANOPROST 2.5 ML DROPS (XALATAN) OP SCH (21:39)
[2016-12-06] MEDS: ERTAPENEM SODIUM 0.5 GM in NS 50 ML IV SCH (22:37)
[2016-12-07 04:04] VITALS: BP_SYST 124
[2016-12-07 08:03] VITALS: BP_SYST 152
[2016-12-07] MEDS: ARIPiprazole 2 MG TAB PO SCH (09:23)
[2016-12-07] MEDS: LACTOBACILLUS RHAMNOSUS GG 1 CAP CAPSULE PO SCH ×2 (09:23→22:36)
[2016-12-07] MEDS: VANCOMYCIN HCL 250 MG CAPSULE PO SCH ×4 (09:23→22:36)
[2016-12-07] MEDS: CARVEDILOL 6.25 MG TABLET (COREG) PO SCH ×2 (09:23→22:36)
[2016-12-07] MEDS: ASCORBIC ACID 500 MG TABLET PO SCH (09:24)
[2016-12-07] MEDS: POTASSIUM CHLORIDE 20 MEQ TAB.PRT.SR PO SCH ×2 (09:24→22:36)
[2016-12-07] MEDS: SERTRALINE HCL 50 MG TABLET PO SCH (09:24)
[2016-12-07] MEDS: BALSAM PERU/CASTOR OIL 60 GM OINT...G. TP SCH (09:24)
[2016-12-07] MEDS: ASPIRIN 325 MG TABLET PO SCH (09:24)
[2016-12-07] MEDS: D5LR 1,000 ML IV SCH (09:27)
[2016-12-07 12:36] VITALS: BP_SYST 120
[2016-12-07 16:04] VITALS: BP_SYST 122
[2016-12-07 20:00] VITALS: BP_SYST 129
[2016-12-07] MEDS: LATANOPROST 2.5 ML DROPS (XALATAN) OP SCH (22:36)
[2016-12-07] MEDS: ERTAPENEM SODIUM 0.5 GM in NS 50 ML IV SCH (22:37)
[2016-12-08 00:39] VITALS: BP_SYST 132
[2016-12-08 04:17] VITALS: BP_SYST 122
[2016-12-08 06:29] LABS: CALCIUM 8.6 mg/dL (8.4-11.0); CREATININE 0.77 mg/dL (0.55-1.30); POTASSIUM 4.2 mmol/L (3.5-5.1)
[2016-12-08 06:34] LABS: BASOPHILS # (AUTO) 0.1 K/uL (0.0-0.2); BASOPHILS % (AUTO) 0.7 % (0.0-2.0); EOSINOPHILS # (AUTO) 0.8 K/uL (0.0-0.4); EOSINOPHILS % (AUTO) 10.3 % (0.0-4.0); HEMATOCRIT 32.3 % (36-48); HEMOGLOBIN 10.5 g/dL (12.0-16.0); LYMPHOCYTES # (AUTO) 2.5 K/uL (1.0-5.5); LYMPHOCYTES % (AUTO) 31.3 % (20.5-51.5); MEAN CORPUSCULAR HEMOGLOBIN 28 pg (27-31); MEAN CORPUSCULAR HGB CONC 33 % (32-36); MEAN CORPUSCULAR VOLUME 85 fL (79.0-98.0); MONOCYTES # (AUTO) 0.5 K/uL (0.0-1.0); MONOCYTES % (AUTO) 5.9 % (1.7-9.3); NEUTROPHILS # (AUTO) 4.2 K/uL (1.8-7.7); NEUTROPHILS % (AUTO) 51.8 % (40.0-70.0); PLATELET COUNT (AUTO) 327 K/uL (130-430); RED BLOOD CELL COUNT(AUTO) 3.81 MIL/uL (4.2-6.2); RED CELL DISTRIBUTION WIDTH 15.6 % (9.0-15.0); WHITE BLOOD COUNT (AUTO) 8.1 K/uL (4.8-10.8)
[2016-12-08] MEDS: LACTOBACILLUS RHAMNOSUS GG 1 CAP CAPSULE PO SCH ×2 (08:51→20:28)
[2016-12-08] MEDS: CARVEDILOL 6.25 MG TABLET (COREG) PO SCH ×2 (08:51→20:27)
[2016-12-08] MEDS: SERTRALINE HCL 50 MG TABLET PO SCH (08:51)
[2016-12-08] MEDS: ARIPiprazole 2 MG TAB PO SCH (08:51)
[2016-12-08] MEDS: VANCOMYCIN HCL 250 MG CAPSULE PO SCH ×4 (08:52→20:26)
[2016-12-08] MEDS: POTASSIUM CHLORIDE 20 MEQ TAB.PRT.SR PO SCH ×2 (08:53→20:26)
[2016-12-08] MEDS: ASCORBIC ACID 500 MG TABLET PO SCH (08:53)
[2016-12-08] MEDS: ASPIRIN 325 MG TABLET PO SCH (08:53)
[2016-12-08] MEDS: BALSAM PERU/CASTOR OIL 60 GM OINT...G. TP SCH (08:55)
[2016-12-08 09:00] VITALS: BP_SYST 123
[2016-12-08 12:58] VITALS: BP_SYST 128
[2016-12-08 16:52] VITALS: BP_SYST 126
[2016-12-08 20:00] VITALS: BP_SYST 123
[2016-12-08] MEDS: LATANOPROST 2.5 ML DROPS (XALATAN) OP SCH (20:27)
[2016-12-09 00:39] VITALS: BP_SYST 112
[2016-12-09 04:21] VITALS: BP_SYST 121
[2016-12-09] MEDS: VANCOMYCIN HCL 250 MG CAPSULE PO SCH ×4 (09:38→20:14)
[2016-12-09] MEDS: ASPIRIN 325 MG TABLET PO SCH (09:39)
[2016-12-09] MEDS: ARIPiprazole 2 MG TAB PO SCH (09:39)
[2016-12-09] MEDS: POTASSIUM CHLORIDE 20 MEQ TAB.PRT.SR PO SCH ×2 (09:39→20:15)
[2016-12-09] MEDS: ASCORBIC ACID 500 MG TABLET PO SCH (09:39)
[2016-12-09] MEDS: SERTRALINE HCL 50 MG TABLET PO SCH (09:39)
[2016-12-09] MEDS: CARVEDILOL 6.25 MG TABLET (COREG) PO SCH ×2 (09:44→20:14)
[2016-12-09] MEDS: LACTOBACILLUS RHAMNOSUS GG 1 CAP CAPSULE PO SCH ×2 (09:47→20:14)
[2016-12-09] MEDS: BALSAM PERU/CASTOR OIL 60 GM OINT...G. TP SCH (09:49)
[2016-12-09 12:49] VITALS: BP_SYST 132
[2016-12-09 15:58] VITALS: BP_SYST 129
[2016-12-09 16:00] VITALS: BP_SYST 95
[2016-12-09 20:00] VITALS: BP_SYST 126
[2016-12-09] MEDS: LATANOPROST 2.5 ML DROPS (XALATAN) OP SCH (20:15)
== END 2016-12-09 21:08 | DRG 871 ==
LOC: SED 15:12 → STU 17:45 → SMU 12-03 19:43
PROVIDERS: ADMIT Internal Medicine; ATTEND Internal Medicine
DX: A41.9 Sepsis, unspecified organism (principal); G93.41 Metabolic encephalopathy; D62 Acute posthemorrhagic anemia; E44.0 Moderate protein-calorie malnutrition; N39.0 Urinary tract infection, site not specified; K92.2 Gastrointestinal hemorrhage, unspecified; A04.7 Enterocolitis due to Clostridium difficile; E87.6 Hypokalemia; E86.0 Dehydration; F03.90 Unspecified dementia, unspecified severity, without behavioral disturbance, psychotic disturbance, mood disturbance, and anxiety; F32.9 Major depressive disorder, single episode, unspecified; G20 Parkinson's disease; I11.0 Hypertensive heart disease with heart failure; I50.9 Heart failure, unspecified; Z78.9 Other specified health status; Z88.8 Allergy status to other drugs, medicaments and biological substances; Z68.24 Body mass index [BMI] 24.0-24.9, adult; L89.152 Pressure ulcer of sacral region, stage 2
CPT/HCPCS: 36415; 71010; 80048; 80053; 81000-TC; 83540-TC; 83550-TC; 83605; 83735-TC; 84439; 84443-TC; 85018-TC; 85025; 85610-TC; 85730-TC; 86886; 86900; 86901; 87040-TC; 87081; 87086; 87186-TC; 87230-TC; 93005; 93971; 94640; 94760; 96361; 96374; 97110-GP; 97116-GP; 97530-GP; 99285; C9113; J0696; J1335; J1450; J1956; J2250; J2543; J3010; J3480; J3490; J7030; J7050; J7120; Q9964